=== PATIENT | male | born 1950 | race Caucasian/White ===

== ENCOUNTER 2021-06-19 06:27 | Day surgery (SDC) | payer MEDICARE ==
[2021-06-15 11:29] VITALS: BMI 26.4
[2021-06-19] MEDS ORDERED: LACTATED RINGERS 1,000 ML IV SCH (06:33)
[2021-06-19] MEDS ORDERED: SODIUM CHLORIDE 0.9% 1,000 ML IV SCH (06:33)
[2021-06-19 07:26] LABS: Glucose,Whole Blood 79 mg/dL (75-99)
[2021-06-19 07:38] VITALS: RESP 16; TEMP 98.3
[2021-06-19] MEDS ORDERED: PROPOFOL 10 MG/ML 20 ML VIAL IV ONE (07:40)
[2021-06-19] MEDS ORDERED: LIDOCAINE 1% INJ 10MG/ML (20 ML MDV) ONE (07:40)
--- NOTE | 2021-06-19 08:28 | P.HPCAR ---
History of Present Illness This is Dr. Hanley dictating an H/P on this patient The patient was interviewed and examined IMPRESSION / ASSESSMENT: Over sensing of T waves requiring adjustment of sensitivity and decay thresholds in the Bi V ICD in the office Ischemic cardio myopathy Class III congestive heart failure History of coronary artery disease status post coronary artery bypass grafting in 2002 Recent stress test did not show any evidence for ischemia Severe LV dysfunction ejection fraction 33% Moderate aortic regurgitation and moderate MR Hypertension Type 2 diabetes PLAN: Defibrillation level testing at least sensitivity Device interrogation with reprogramming to maximize battery life and biventricular pacing for heart failure HPI Patient's main complaint is that he gets short of breath and fatigued very easily with minimal walking He denies any chest discomfort no dizziness no loss of consciousness In the office, and device interrogation was noted to have T-wave oversensing and therefore sensitivity and decay parameters for reprogrammed He was brought in for DFT level testing ROS: No fever chills or rigors, no cough, phlegm or expectoration, no nausea, vomiting or diarrhea, no hematuria, dysuria, no musculoskeletal complaints, no strokes or seizures, no skin lesions. Patient denies any orthopnea or PND or chest discomfort EXAMINATION: Temperature 98.3F, pulse 72 beats a minute, blood pressure 198/78 mmHg Breath sounds are clear no rhonchi no crackles Heart sounds S1 and S2 are soft no murmurs or gallops or rub No JVD No lower extremity edema REVIEW OF LABS, ECG & MEDICAL DATA Glucose 79 Had a detailed discussion the patient and his daughter regarding the procedure and the expectations Physical Exam Vitals: Vital Signs Temp Pulse Resp BP Pulse Ox 06/19/21 07:21 98.3 F 72 16 198/78 98 Intake and Output 06/18/21 06/19/21 06/19/21 22:59 06:59 14:59 Intake Total 150 Balance 150 Intake: IV 150 Other: Weight 61 kg 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, hx of gout History of Any Multi-Drug Resistant Organisms: None Reported Past Surgical History: AICD, Appendectomy, Coronary Bypass/CABG, Tonsillectomy Additional Past Surgical History / Comment(s): CABG X4, [facility] AICD, eriberto cataracts Past Anesthesia/Blood Transfusion Reactions: No Reported Reaction Type of Cardiac Device: AICD Device Placement Date:: 09/18/19 Smoking Status: Never smoker Physical Examination Vital Signs Temp Pulse Resp BP Pulse Ox 06/19/21 07:21 98.3 F 72 16 198/78 98 Intake and Output 06/18/21 06/19/21 06/19/21 22:59 06:59 14:59 Intake Total 150 Balance 150 Intake: IV 150 Other: Weight 61 kg Results Current Medications Generic Name Dose Route Start Last Admin Trade Name Alisha PRN Reason Stop Dose Admin Sodium Chloride 1,000 mls @ 50 mls/hr 06/19/21 06:33 06/19/21 07:25 Saline 0.9% IV 07/19/21 06:34 150 mls .Q20H MATT Administration Lactated Ringer's 1,000 mls @ 20 mls/hr 06/19/21 06:33 Lactated Ringers IV 07/19/21 06:34 .Q24H MATT Intake and Output 06/18/21 06/19/21 06/19/21 22:59 06:59 14:59 Intake Total 150 Balance 150 Intake: IV 150 Other: Weight 61 kg Patient Weight 06/20/21 06:59 Weight 61 kg
--- NOTE | 2021-06-19 08:41 | P.EPPROC ---
- EP Procedure Note Electrophysiology Procedure Note: Diagnosis Ischemic cardio myopathy with a biventricular ICD implant in [place] T-wave oversensing noted in the office Sensitivity and delayed EKG parameters was reprogrammed Patient was brought in for defibrillation level testing Procedures Cinefluoroscopy of the leads Fluoroscopy of the leads was performed. No fractures or breaks noted Atrial lead screwed in the right atrial appendage RV lead in the RV septum, low LV lead in the posterior lateral vein the LV poles in the ANA M view appear to be on the lateral wall in excellent position Device interrogation Quadrant [employer] MP model #3369-40 Q, FRONT END DRUPAL DEVELOPER-D, serial number [id number] Implanted in [place], Current battery longevity around to half years based on multiple site pacing from LV 1 and LV 4 Atrial pacing threshold 0.5 V at 0.5 ms P waves 2.6 mV, pacing impedance 340 ohms RV pacing threshold 1.25 V at 0.5 ms, R waves 12 mV LV pacing threshold from D4 is elevated at greater than 3 V However the pacing threshold from C1 to RV coil is 0.5 V at 0.5 ms with a pacing impedance of 660 ohms High-voltage impedance 50 ohms, RV to can DFT testing performed Ventricular fibrillation induced, appropriately detected at least sensitivity and successfully internally defibrillated with a 10 J shock Charge time excellent, shocking impedance within normal range The device was reprogrammed MADIT RIT programming 3 zones of therapy were programmed with appropriate detections, antitachycardia pacing cardioversion and defibrillation First cardioversion in the VT 1 zone at 10 J Sensitivity programmed at nominal settings Delayed EKG parameters unchanged LV offset programmed to -40 ms Biventricular pacing with LV 1-RV coil only This increased the battery longevity to 4.3 years Plan Follow-up Dr. Michael and the device clinic as previously scheduled The changes made and the testing results were discussed with the patient's carmelita george
[2021-06-19 16:41] VITALS: BP 155/67; PULSE 76
== END 2021-06-19 09:38 | disposition home or self-care (01) ==
LOC: CATHEP 06:27
PROVIDERS: ATTEND Internal Medicine Clinical Cardiac Electrophysiology
DX: Z45.02 Encounter for adjustment and management of automatic implantable cardiac defibrillator (principal); I25.5 Ischemic cardiomyopathy; I25.10 Atherosclerotic heart disease of native coronary artery without angina pectoris; I12.9 Hypertensive chronic kidney disease with stage 1 through stage 4 chronic kidney disease, or unspecified chronic kidney disease; E11.22 Type 2 diabetes mellitus with diabetic chronic kidney disease; N18.9 Chronic kidney disease, unspecified; E78.2 Mixed hyperlipidemia; Z95.1 Presence of aortocoronary bypass graft; Z82.49 Family history of ischemic heart disease and other diseases of the circulatory system; Z88.8 Allergy status to other drugs, medicaments and biological substances; Z90.89 Acquired absence of other organs; Z87.11 Personal history of peptic ulcer disease; Z87.891 Personal history of nicotine dependence; Z79.02 Long term (current) use of antithrombotics/antiplatelets; Z79.899 Other long term (current) drug therapy; Z79.84 Long term (current) use of oral hypoglycemic drugs; Z79.82 Long term (current) use of aspirin
CPT/HCPCS: 93642; J2001; J2704

== ENCOUNTER 2021-09-04 10:54 | Inpatient (IN) | payer MEDICARE ==
[2021-09-04] MEDS ORDERED: FUROSEMIDE 10 MG/ML 4 ML VIAL IV STA (10:55)
[2021-09-04] MEDS ORDERED: NITROGLYCERIN OINT 1 INCH/GM PACKET TOPICAL STA (11:00)
--- NOTE | 2021-09-04 11:00 | ED ---
General Adult HPI - General Stated complaint: CHF Time Seen by Provider: 09/04/21 10:54 Source: patient, RN notes reviewed, old records reviewed - History of Present Illness Initial comments: This is a 70-year-old male with past medical history significant for congestive heart failure. Patient states he started having difficulty breathing last night and by this morning it was severe so they called EMS. In route the patient had more difficulty recently was put on BiPAP. Patient denies any fever chills. Patient denies any chest pain or palpitations. Patient denies abdominal pain patient denies nausea vomiting diarrhea. Patient states he has COVID. - Related Data Home Medications Medication Instructions Recorded Confirmed Allopurinol [Zyloprim] 100 mg PO DAILY 06/15/21 09/04/21 Aspirin [Adult Low Dose Aspirin EC] 81 mg PO DAILY 06/15/21 09/04/21 Carvedilol [Coreg] 12.5 mg PO BID 06/15/21 09/04/21 Clopidogrel [Plavix] 75 mg PO DAILY 06/15/21 09/04/21 Ferrous Sulfate [Iron] 325 mg PO MOTUWETH 06/15/21 09/04/21 Furosemide [Lasix] 20 mg PO DAILY 06/15/21 09/04/21 Losartan Potassium 100 mg PO DAILY 06/15/21 09/04/21 Multivit-Min/FA/Lycopen/Lutein 1 tab PO DAILY 06/15/21 09/04/21 [Centrum Silver Men Tablet] Omeprazole [PriLOSEC] 20 mg PO BID 06/15/21 09/04/21 Simvastatin 80 mg PO DAILY 06/15/21 09/04/21 Sucralfate [Carafate] 1 gm PO BID 06/15/21 09/04/21 sitaGLIPtin PHOS/metFORMIN HCL 1 tab PO BID 06/15/21 09/04/21 [Janumet 50-1,000 mg Tablet] Allergies Allergy/AdvReac Type Severity Reaction Status Date / Time heparin Allergy Unknown Verified 09/04/21 11:55 Review of Systems ROS Statement: Those systems with pertinent positive or pertinent negative responses have been documented in the HPI. ROS Other: All systems not noted in ROS Statement are negative. 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 Patient is nontoxic and well- hydrated and is in moderate distress. ENT: Neck is soft and supple. No significant lymphadenopathy is noted. Oropharynx is clear. Moist mucous membranes. Neck has full range of motion without eliciting any pain. EYES: The sclera were anicteric and conjunctiva were pink and moist. Extraocular movements were intact and pupils were equal round and reactive to light. Eyelids were unremarkable. PULMONARY: Patient has crackles bilaterally CARDIOVASCULAR: There is a regular rate and rhythm without any murmurs gallops or rubs. ABDOMEN: Soft and nontender with normal bowel sounds. SKIN: Skin is clear with no lesions or rashes and otherwise unremarkable. NEUROLOGIC: Patient is alert and oriented x3. Cranial nerves II through XII are grossly intact. Motor and sensory are also intact. Normal speech, volume and content. Symmetrical smile. MUSCULOSKELETAL: Normal extremities with adequate strength and full range of motion. No lower extremity swelling or edema. No calf tenderness. LYMPHATICS: No significant lymphadenopathy is noted PSYCHIATRIC: Normal psychiatric evaluation. Course Vital Signs 09/04/21 09/04/21 10:56 11:18 Pulse Rate 102 H 107 H Respiratory 33 H 28 H Rate Blood Pressure 165/88 127/86 O2 Sat by Pulse 100 97 Oximetry Medical Decision Making - Medical Decision Making EKG shows a paced rhythm at 102 bpm NC interval is 118 QRS is 182 QT intervals 434 QTC is 565. Chest x-ray shows pulmonary edema I gave the patient Lasix and nitroglycerin. Patient started doing considerably better when she put him on her BiPAP. Patient's potassium was elevated so I gave Some chloride, D50, insulin, sodium bicarb. Patient's troponin was elevated. BNP was elevated 22,600. I spoke with Dr. Bowen agreed to admit the patient admitted the patient I wrote admitting orders I continued Lasix Nitropaste was as an inpatient and I consult cardiology. - Lab Data Result diagrams: 09/04/21 11:20 09/04/21 11:20 Lab Results 09/04/21 09/04/21 09/04/21 Range/Units 11:20 11:20 11:20 WBC 11.2 H (3.8-10.6) k/uL RBC 3.03 L (4.30-5.90) m/uL Hgb 10.9 L (13.0-17.5) gm/dL Hct 35.4 L (39.0-53.0) % MCV 116.8 H (80.0-100.0) fL MCH 36.0 H (25.0-35.0) pg MCHC 30.8 L (31.0-37.0) g/dL RDW 14.7 (11.5-15.5) % Plt Count 347 (150-450) k/uL MPV 8.8 Macrocytosis Marked A PT 9.9 (9.0-12.0) sec INR 0.9 (<1.2) APTT 19.8 L (22.0-30.0) sec Sodium 140 (137-145) mmol/L Potassium 7.5 H* (3.5-5.1) mmol/L Chloride 116 H (98-107) mmol/L Carbon Dioxide 11 L (22-30) mmol/L Anion Gap 13 mmol/L BUN 60 H (9-20) mg/dL Creatinine 2.06 H (0.66-1.25) mg/dL Est GFR (CKD-EPI)AfAm 36 (>60 ml/min/1.73 sqM) Est GFR (CKD-EPI)NonAf 31 (>60 ml/min/1.73 sqM) Glucose 416 H (74-99) mg/dL Plasma Lactic Acid Srinivasa (0.7-2.0) mmol/L Calcium 9.5 (8.4-10.2) mg/dL Magnesium 1.5 L (1.6-2.3) mg/dL Total Bilirubin 0.6 (0.2-1.3) mg/dL AST 26 (17-59) U/L ALT 15 (4-49) U/L Alkaline Phosphatase 73 (38-126) U/L Troponin I (0.000-0.034) ng/mL NT-Pro-B Natriuret Pep pg/mL Total Protein 6.3 (6.3-8.2) g/dL Albumin 3.9 (3.5-5.0) g/dL 09/04/21 09/04/21 09/04/21 Range/Units 11:20 11:20 11:20 WBC (3.8-10.6) k/uL RBC (4.30-5.90) m/uL Hgb (13.0-17.5) gm/dL Hct (39.0-53.0) % MCV (80.0-100.0) fL MCH (25.0-35.0) pg MCHC (31.0-37.0) g/dL RDW (11.5-15.5) % Plt Count (150-450) k/uL MPV Macrocytosis PT (9.0-12.0) sec INR (<1.2) APTT (22.0-30.0) sec Sodium (137-145) mmol/L Potassium (3.5-5.1) mmol/L Chloride (98-107) mmol/L Carbon Dioxide (22-30) mmol/L Anion Gap mmol/L BUN (9-20) mg/dL Creatinine (0.66-1.25) mg/dL Est GFR (CKD-EPI)AfAm (>60 ml/min/1.73 sqM) Est GFR (CKD-EPI)NonAf (>60 ml/min/1.73 sqM) Glucose (74-99) mg/dL Plasma Lactic Acid Srinivasa 3.4 H* (0.7-2.0) mmol/L Calcium (8.4-10.2) mg/dL Magnesium (1.6-2.3) mg/dL Total Bilirubin (0.2-1.3) mg/dL AST (17-59) U/L ALT (4-49) U/L Alkaline Phosphatase (38-126) U/L Troponin I 0.414 H* (0.000-0.034) ng/mL NT-Pro-B Natriuret Pep 36705 pg/mL Total Protein (6.3-8.2) g/dL Albumin (3.5-5.0) g/dL Critical Care Time Critical Care Time: Yes Total Critical Care Time: 34 Disposition Clinical Impression: Congestive heart failure, Elevated troponin, Hyperkalemia Disposition: ADMITTED IP TO THIS HOSP Referrals: None,Stated [Primary Care Provider] - 1-2 days Time of Disposition: 12:35
[2021-09-04 11:40] LABS: Basophils # (A) 0.1 k/uL (0-0.2); Basophils % (A) 1 %; Eosinophils # (A) 0.1 k/uL (0-0.7); Eosinophils % (A) 1 %; HCT 35.4 % (39.0-53.0); HGB 10.9 gm/dL (13.0-17.5); Lymphocytes # (A) 1.5 k/uL (1.0-4.8); Lymphocytes % (A) 13 %; MCHC 30.8 g/dL (31.0-37.0); MCV 116.8 fL (80.0-100.0); Macrocytosis Marked; Mean Platelet Volume 8.8; Monocytes # (A) 0.6 k/uL (0-1.0); Monocytes % (A) 5 %; Neutrophils % (A) 80 %; Platelet Count 347 k/uL (150-450); RBC 3.03 m/uL (4.30-5.90); RDW 14.7 % (11.5-15.5); WBC 11.2 k/uL (3.8-10.6)
[2021-09-04 11:49] LABS: Albumin 3.9 g/dL (3.5-5.0); Calcium 9.5 mg/dL (8.4-10.2); Magnesium 1.5 mg/dL (1.6-2.3); Total Bilirubin 0.6 mg/dL (0.2-1.3); Total Protein 6.3 g/dL (6.3-8.2)
[2021-09-04 11:58] LABS: Potassium 7.5 mmol/L (3.5-5.1)
--- NOTE | 2021-09-04 12:09 | XR ---
E EXAMINATION TYPE: XR chest 1V DATE OF EXAM: 09/04/2021 COMPARISON: NONE HISTORY: Difficulty breathing FINDINGS: There are bilateral pleural effusions with cardiomegaly and bibasilar infiltrate. There is a diffuse interstitial pattern. Cardiomegaly with postoperative change and cardiac device. Arthropathy of the shoulders with diffuse osteopenia. IMPRESSION: 1. Diffuse airspace disease with bilateral effusions correlate for pulmonary edema otherwise consider diffuse pneumonia.
[2021-09-04 12:19] LABS: INR 0.9 (<1.2); Prothrombin Time 9.9 sec (9.0-12.0)
[2021-09-04 12:25] LABS: Partial Thromboplastin Time 19.8 sec (22.0-30.0)
[2021-09-04] MEDS ORDERED: CALCIUM CHLORIDE 100 MG/ML 10 ML SYRINGE IVP STA (12:29)
[2021-09-04] MEDS ORDERED: SODIUM BICARB 8.4% 50 ML SYR (1 MEQ/ML) IV STA ×2 (12:30→20:44)
[2021-09-04] MEDS ORDERED: INSULIN REGULAR 100 UNIT/ML VIAL (IV) IV ONE (12:32)
[2021-09-04] MEDS ORDERED: DEXTROSE 50% SYRINGE 50 ML IVP STA (12:32)
[2021-09-04] MEDS ORDERED: SODIUM POLYSTYRENE SULFONATE 15 GM/60 ML BOTTLE PO STA (14:07)
[2021-09-04] MEDS: NITROGLYCERIN OINT 1 INCH/GM PACKET TOPICAL SCH ×2 (18:33→20:56)
[2021-09-04] MEDS: FUROSEMIDE 10 MG/ML 4 ML VIAL IV SCH ×2 (18:33→20:56)
[2021-09-04] MEDS ORDERED: CALCIUM GLUCONATE 1 GM in SODIUM CHLORIDE 0.9% 100 ML IVPB ONE (20:52)
[2021-09-04] MEDS: PANTOPRAZOLE 40 MG TABLET PO SCH (20:56)
[2021-09-04] MEDS: ATORVASTATIN 80 MG TAB PO SCH (20:56)
[2021-09-04] MEDS: ENOXAPARIN 60 MG/0.6 ML SYRINGE SQ SCH (21:06)
[2021-09-04 21:15] LABS: Glucose,Whole Blood 160 mg/dL (75-99)
[2021-09-04] MEDS: INSULIN ASPART (NovoLOG) 100 UNIT/ML VIAL SQ SCH (21:24)
[2021-09-04 22:44] LABS: Potassium 5.5 mmol/L (3.5-5.1)
[2021-09-04] MEDS: SODIUM CHLORIDE 0.45% 1,000 ML with SODIUM BICARB (1 MEQ/ML) 150 ML IV SCH ×2 (23:09)
--- NOTE | 2021-09-05 00:12 | US ---
EXAMINATION TYPE: US kidneys/renal and bladder DATE OF EXAM: 09/04/2021 COMPARISON: NONE CLINICAL HISTORY: assess kidney. Labs abnormal per IT INVESTMENT/PORTFOLIO MANAGER. Born with right kidney only per RN summary. EXAM MEASUREMENTS: Right Kidney: 14.9 x 4.7 x 5.7 cm Left Kidney: Not seen. Right Kidney: Appears enlarged. Possible double collecting system appearance. Hyperechoic focus seen medially: 0.4 x 0.6 x 0.2 cm. Septated anechoic area seen laterally: 2.3 x 2.3 x 1.6 cm. Multiple ti ny anechoic areas seen. Bladder: Appears anechoic. Bilateral Jets seen: No. -Incidental finding: Multiple hyperechoic foci with posterior shadowing seen within the gallbladder. -Fluid seen in the LLQ: 2.6 x 1.3 x 2.5 cm. IMPRESSION: Numerous gallstones. There are right renal cortical cysts. No hydronephrosis. Right kidney is enlarged. Nonobstructing sma ll renal calculus. Left kidney not seen. By history patient absent left kidney. Right kidney could be enlarged related to compensatory hypertrophy.
[2021-09-05 04:22] LABS: Calcium 9.9 mg/dL (8.4-10.2)
[2021-09-05 06:16] LABS: Glucose,Whole Blood 100 mg/dL (75-99)
[2021-09-05] MEDS: INSULIN ASPART (NovoLOG) 100 UNIT/ML VIAL SQ SCH ×4 (06:16→20:49)
[2021-09-05] MEDS: FUROSEMIDE 10 MG/ML 4 ML VIAL IV SCH ×2 (09:41→17:07)
[2021-09-05] MEDS: ASPIRIN 81 MG PO SCH (09:41)
[2021-09-05] MEDS: carvediloL 12.5 MG TAB PO SCH ×2 (09:41→17:07)
[2021-09-05] MEDS: PANTOPRAZOLE 40 MG TABLET PO SCH ×2 (09:41→20:49)
[2021-09-05] MEDS: allopurinoL 100 MG TAB PO SCH (09:41)
[2021-09-05] MEDS: CLOPIDOGREL 75 MG TAB PO SCH (09:41)
[2021-09-05] MEDS: NITROGLYCERIN OINT 1 INCH/GM PACKET TOPICAL SCH ×4 (09:47→21:00)
[2021-09-05] MEDS ORDERED: FUROSEMIDE 10 MG/ML 4 ML VIAL IV STA (11:17)
--- NOTE | 2021-09-05 11:43 | P.CRDCN ---
History of Present Illness History of present illness: HISTORY OF PRESENTING ILLNESS This is a pleasant 70-year-old male past medical history significant for type 2 diabetes, hypertension, dyslipidemia, coronary artery disease status post four-vessel CABG 2002 (LEWIS-LAD, VG-OM1, VG-OM2, VG-PDA), ischemic cardiomyopathy s/p ICD implantation 2019 at [facility], chronic kidney disease. He follows in the office with Dr. iMchael. We have been asked to see in consultation for acute pulmonary edema and elevated troponin. Patient presents to the emergency department with worsening shortness of breath. He states he has been having symptoms of shortness of breath for a few months now. However, over the past couple days he been having worsening shortness of breath and dyspnea on exertion. Yesterday he states he had an episode of chest discomfort, describes it as a pressure. It was non-radiating, non-exertional. He called his sister, she noted him being diaphoretic. He also was very short of breath. He decided to present to the emergency department for further evaluation. He also endorses about 2lb weight gain. He has symptoms of orthopnea. He states he has been having difficulty sleeping due to shortness of breath. He denies nausea, v omiting, abdominal pain, fever or chills. He is a non-smoker. On admission, patient was hyperkalemic K 7.9, WBC 11.2, Hgb 10.9, Plt 347, BUN 60, sCr 2.06, Lactic 3.4. Patient was started on IV Lasix, SQ lovenox, and Sodium bicarb drip. DIAGNOSTICS EKG reveals V paced rhythm, right bundle morphology Telemetry tracings indicate V paced rhythm Chest xray diffuse airspace disease with bilateral effusions correlate for pulmonary edema. Laboratory reviewed, troponin 0.4-->3.4-->9.9, proBNP 22,600, sodium 140, potassium 5.0, BUN 65, serum creatinine 2.1, COVID-19 PCR negative. Most recent echocardiogram in the office 03/30/2021 revealed EF of 3035 percent, grade 2 diastolic dysfunction, mild left ventricular hypertrophy, moderate mitral regurgitation, [id number] tricuspid regurgitation, moderate increased pulmonary artery systolic pressure 55mmHg, moderate pulmonic regurgitation Lexiscan in the office 03/28/21- No evidence of significant stress induced ischemia. Abnormal myocardial perfusion imaging with predominantly fixed ant eroapical and anterolateral defect with segmental wall motion abnormality consistent with prior ND. Current home cardiac medications include simvastatin 80mg daily, losartan 100mg daily, Lasix 20mg daily, Plavix 75mg daily, aspirin 81mg daily REVIEW OF SYSTEMS At the time of my exam: CONSTITUTIONAL: Denies fever or chills. +diaphoresis CARDIOVASCULAR: + chest pain, +shortness of breath, +orthopnea, Denies PND or palpitations. RESPIRATORY: Denies cough. GASTROINTESTINAL: Denies abdominal pain, diarrhea, constipation, nausea or vomiting. MUSCULOSKELETAL: Denies myalgias. NEUROLOGIC: Denies numbness, tingling, headacbe or weakness. ENDOCRINE: Denies fatigue, weight change, polydipsia or polyurina. GENITOURINARY: Denies burning, hematuria or urgency with micturation. HEMATOLOGIC: Denies history of anemia or bleeding. PHYSICAL EXAMINATION Blood pressure 134/76, heart rate 86, afebrile, maintaining saturations 99% on 3 L nasal cannula CONSTITUTIONAL: No apparent distress. HEENT: Head is normocephalic. Pupils are equal, round. Sclerae anicteric. Mucous membranes of the mouth are moist. Mild JVD. No carotid bruit. CHEST EXAMINATION: Lungs with bibasilar crackles to auscultation. No chest wall tenderness is noted on palpation or with deep breathing. HEART EXAMINATION: Regular rate and rhythm. S1, S2 heard. Systolic murmur at apex ABDOMEN: Soft, nontender. Positive bowel sounds. EXTREMITIES: 2+ peripheral pulses, no lower extremity edema and no calf tenderness. NEUROLOGIC EXAMINATION: Patient is awake, alert and oriented x3. ASSESSMENT Acute systolic heart failure NSTEMI Hyperkalemia Lactic acidosis Acute on Chronic kidney disease Type 2 diabetes Hypertension Dyslipidemia Coronary artery disease status post four-vessel CABG 2002 (LEWIS-LAD, VG-OM1, VG- OM2, VG-PDA) Ischemic cardiomyopathy s/p ICD implantation 2018 PLAN We will obtain an 2D echocardiogram Continue IV Lasix 40mg Q8hr Continue aspirin, plavix, statin, carvedilol Patient states he went to a previous hospital and was told he was allergic to heparin (unknown details). We will continue SQ Lovenox. We will monitor patient's Platelet count No plans for cardiac catheterization today. Nephrology consulted Monitor I/Os, daily weights Monitor renal function and electrolytes Further recommendations based on clinical course Nurse Practitioner note has been reviewed, I agree with a documented findings and plan of care. Patient was seen and examined. 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, hx of gout History of Any Multi-Drug Resistant Organisms: None Reported Past Surgical History: AICD, Appendectomy, Coronary Bypass/CABG, Tonsillectomy Additional Past Surgical History / Comment(s): CABG X4, [facility] AICD, eriberto cataracts Past Anesthesia/Blood Transfusion Reactions: No Reported Reaction Type of Cardiac Device: AICD Device Placement Date:: 09/18/19 Smoking Status: Never smoker - Past Family History Mother Family Medical History: Cancer, Hypertension Additional Family Medical History / Comment(s): breast CA Father Family Medical History: Cancer Additional Family Medical History / Comment(s): TB. lung CA Medications and Allergies Home Medications Medication Instructions Recorded Confirmed Type Allopurinol [Zyloprim] 100 mg PO DAILY 06/15/21 09/04/21 History Aspirin [Adult Low Dose Aspirin EC] 81 mg PO DAILY 06/15/21 09/04/21 History Carvedilol [Coreg] 12.5 mg PO BID 06/15/21 09/04/21 History Clopidogrel [Plavix] 75 mg PO DAILY 06/15/21 09/04/21 History Ferrous Sulfate [Iron] 325 mg PO MOTUWETH 06/15/21 09/04/21 History Furosemide [Lasix] 20 mg PO DAILY 06/15/21 09/04/21 History Losartan Potassium 100 mg PO DAILY 06/15/21 09/04/21 History Multivit-Min/FA/Lycopen/Lutein 1 tab PO DAILY 06/15/21 09/04/21 History [Centrum Silver Men Tablet] Omeprazole [PriLOSEC] 20 mg PO BID 06/15/21 09/04/21 History Simvastatin 80 mg PO DAILY 06/15/21 09/04/21 History Sucralfate [Carafate] 1 gm PO BID 06/15/21 09/04/21 History sitaGLIPtin PHOS/metFORMIN HCL 1 tab PO BID 06/15/21 09/04/21 History [Janumet 50-1,000 mg Tablet] Allergies Allergy/AdvReac Type Severity Reaction Status Date / Time heparin Allergy Unknown Verified 09/04/21 11:55 Physical Exam Vitals: Vital Signs Temp Pulse Resp BP Pulse Ox 09/04/21 12:55 97.9 F 93 19 112/60 100 09/04/21 11:18 107 H 28 H 127/86 97 09/04/21 10:56 102 H 33 H 165/88 100 Intake and Output 09/03/21 09/04/21 09/04/21 22:59 06:59 14:59 Other: Weight 65.771 kg Results 09/04/21 11:20 09/05/21 03:09 Cardiac Enzymes 09/04/21 09/04/21 Range/Units 11:20 11:20 AST 26 (17-59) U/L Troponin I 0.414 H* (0.000-0.034) ng/mL Coagulation 09/04/21 Range/Units 11:20 PT 9.9 (9.0-12.0) sec APTT 19.8 L (22.0-30.0) sec CBC 09/04/21 Range/Units 11:20 WBC 11.2 H (3.8-10.6) k/uL RBC 3.03 L (4.30-5.90) m/uL Hgb 10.9 L (13.0-17.5) gm/dL Hct 35.4 L (39.0-53.0) % Plt Count 347 (150-450) k/uL Comprehensive Metabolic Panel 09/04/21 09/04/21 Range/Units 11:20 12:45 Sodium 140 (137-145) mmol/L Potassium 7.5 H* 7.9 H* (3.5-5.1) mmol/L Chloride 116 H (98-107) mmol/L Carbon Dioxide 11 L (22-30) mmol/L BUN 60 H (9-20) mg/dL Creatinine 2.06 H (0.66-1.25) mg/dL Glucose 416 H (74-99) mg/dL Calcium 9.5 (8.4-10.2) mg/dL AST 26 (17-59) U/L ALT 15 (4-49) U/L Alkaline Phosphatase 73 (38-126) U/L Total Protein 6.3 (6.3-8.2) g/dL Albumin 3.9 (3.5-5.0) g/dL Current Medications Generic Name Dose Route Start Last Admin Trade Name Freq PRN Reason Stop Dose Admin Furosemide 40 mg 09/04/21 19:00 Furosemide 10 Mg/Ml 4 Ml Vial IV Q8H MATT Nitroglycerin 1 inch 09/04/21 18:00 Nitroglycerin Oint 1 Inch/Gm Packet TOPICAL QID MATT Intake and Output 09/03/21 09/04/21 09/04/21 22:59 06:59 14:59 Other: Weight 65.771 kg Patient Weight 09/05/21 06:59 Weight 65.771 kg 09/04/21 11:20 09/04/21 12:45
[2021-09-05 13:08] LABS: Glucose,Whole Blood 165 mg/dL (75-99)
--- NOTE | 2021-09-05 14:11 | P.HPIM ---
History of Present Illness H&P Date: 09/04/21 Chief Complaint: Short of breath This is a pleasant 70-year-old patient was chronic stable medical conditions include diabetes, peptic ulcer disease, unilateral right kidney, gout, CAD with a bypass, AICD. Has known underlying ischemic cardiomyopathy. Patient presented increasing shortness of breath through the previous night. Some chest pressure. Slight perspiration. Minimal cough. No fever no chills. No lower extremity swelling. Presents to the ER. Review of systems: GEN.: Tired EYES: None HEENT: None NECK: None RESPIRATORY: As above CARDIOVASCULAR: As above GASTROINTESTINAL: None GENITOURINARY: None MUSCULOSKELETAL: None LYMPHATICS: None HEMATOLOGICAL: None PSYCHIATRY: None NEUROLOGICAL: None Past medical history to include: Diabetes mellitus type 2, COPD, AICD, peptic ulcer disease, unilateral right kidney, gout, CAD with a bypass Family history: Breast cancer, hypertension Social history: No history of smoking or alcohol. Physical examination: VITAL SIGNS: 97.9, 102, 33, 165/88, 100% on BiPAP GENERAL: BMI 28.3, reclining in bed, short of breath. EYES: Pupils equal. Conjunctiva normal. HEENT: External appearance of nose and ears normal, oral cavity grossly normal. NECK: JVD unable to assess; masses not palpable. HEART: First and second heart sounds are normal; no edema. LUNGS: Respiratory rate increased, diminished breath sounds and crackles. ABDOMEN: Soft, nontender, liver spleen not palpable, no masses palpable. PSYCH: [Alert and oriented x3; mood and affect tired l. NEUROLOGICAL: Cranial nerves grossly intact; no facial asymmetry, power and sensation grossly intact. LYMPHATICS: No lymph nodes palpable in the axilla and neck INVESTIGATIONS, reviewed in the clinical context: WBC 11.2 hemoglobin 10.9 platelets 347 sodium 140 potassium 7.5/6.1 BUN 60 creatinine 2.06 Troponin I 0.414, 3.4, 90.9 ProBNP [id number] EKG tracing personally reviewed by me-atrial sensed ventricular paced rhythm. Chest x-ray film personally reviewed by me-pulmonary edema Previous labs: [May 2021]: BUN 53 creatinine 2.5 Assessment and plan: -Acute non-Q wave myocardial infarction Lipitor, Coreg, aspirin. Cardiology consulted -Acute on chronic congestive heart failure exacerbation IV Lasix. Currently consulted -Biventricular AICD -Chronic kidney disease stage IV from diabetic nephropathy and hypertensive nephrosclerosis Follow renal function -Severe hyperkalemia in the setting of CK D. Hold Cozaar. Sodium bicarb. Dextrose. Insulin. Kayexalate. Nephrology consult -Unilateral right kidney -Chronic gout Continue allopurinol -Acute hypoxic respiratory failure from pulmonary edema BiPAP -Acute metabolic acidosis from renal failure. Bicarbonate -CAD with a prior history of coronary bypass Coreg. Plavix. Aspirin. -Peptic ulcer disease PPI. -Diabetes mellitus type 2 on oral hypoglycemic Hold oral hypoglycemic. Follow Accu-Cheks and sliding scale insulin. Patient on BiPAP. IV Lasix. Hold Cozaar. Nitropaste. Strict I's and O's. Follow with cardiology in nephrology. Lipitor. Aspirin. PPI. Sodium bicarbonate. Care discussed with the patient. Prognosis guarded. 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, hx of gout History of Any Multi-Drug Resistant Organisms: None Reported Past Surgical History: AICD, Appendectomy, Coronary Bypass/CABG, Tonsillectomy Additional Past Surgical History / Comment(s): CABG X4, [facility] AICD, eriberto cataracts Past Anesthesia/Blood Transfusion Reactions: No Reported Reaction Type of Cardiac Device: AICD Device Placement Date:: 09/18/19 Smoking Status: Never smoker - Past Family History Mother Family Medical History: Cancer, Hypertension Additional Family Medical History / Comment(s): breast CA Father Family Medical History: Cancer Additional Family Medical History / Comment(s): TB. lung CA Medications and Allergies Home Medications Medication Instructions Recorded Confirmed Type Allopurinol [Zyloprim] 100 mg PO DAILY 06/15/21 09/04/21 History Aspirin [Adult Low Dose Aspirin EC] 81 mg PO DAILY 06/15/21 09/04/21 History Carvedilol [Coreg] 12.5 mg PO BID 06/15/21 09/04/21 History Clopidogrel [Plavix] 75 mg PO DAILY 06/15/21 09/04/21 History Ferrous Sulfate [Iron] 325 mg PO MOTUWETH 06/15/21 09/04/21 History Furosemide [Lasix] 20 mg PO DAILY 06/15/21 09/04/21 History Losartan Potassium 100 mg PO DAILY 06/15/21 09/04/21 History Multivit-Min/FA/Lycopen/Lutein 1 tab PO DAILY 06/15/21 09/04/21 History [Centrum Silver Men Tablet] Omeprazole [PriLOSEC] 20 mg PO BID 06/15/21 09/04/21 History Simvastatin 80 mg PO DAILY 06/15/21 09/04/21 History Sucralfate [Carafate] 1 gm PO BID 06/15/21 09/04/21 History sitaGLIPtin PHOS/metFORMIN HCL 1 tab PO BID 06/15/21 09/04/21 History [Janumet 50-1,000 mg Tablet] Allergies Allergy/AdvReac Type Severity Reaction Status Date / Time heparin Allergy Unknown Verified 09/04/21 11:55 Physical Exam Vitals: Vital Signs Temp Pulse Pulse Resp BP BP Pulse Ox 09/04/21 16:00 97.7 F 75 23 103/58 100 09/04/21 12:55 97.9 F 93 19 112/60 100 09/04/21 11:18 107 H 28 H 127/86 97 09/04/21 10:56 102 H 33 H 165/88 100 Intake and Output 09/04/21 09/04/21 09/04/21 06:59 14:59 22:59 Other: Weight 65.771 kg Results CBC & Chem 7: 09/04/21 11:20 09/05/21 03:09 Labs: Abnormal Lab Results - Last 24 Hours (Table) 09/04/21 09/04/21 09/04/21 Range/Units 11:20 11:20 11:20 WBC 11.2 H (3.8-10.6) k/uL RBC 3.03 L (4.30-5.90) m/uL Hgb 10.9 L (13.0-17.5) gm/dL Hct 35.4 L (39.0-53.0) % MCV 116.8 H (80.0-100.0) fL MCH 36.0 H (25.0-35.0) pg MCHC 30.8 L (31.0-37.0) g/dL Neutrophils # 9.0 H (1.3-7.7) k/uL Macrocytosis Marked A APTT 19.8 L (22.0-30.0) sec Potassium 7.5 H* (3.5-5.1) mmol/L Chloride 116 H (98-107) mmol/L Carbon Dioxide 11 L (22-30) mmol/L BUN 60 H (9-20) mg/dL Creatinine 2.06 H (0.66-1.25) mg/dL Glucose 416 H (74-99) mg/dL Plasma Lactic Acid Srinivasa (0.7-2.0) mmol/L Magnesium 1.5 L (1.6-2.3) mg/dL Troponin I (0.000-0.034) ng/mL 09/04/21 09/04/21 09/04/21 Range/Units 11:20 11:20 12:45 WBC (3.8-10.6) k/uL RBC (4.30-5.90) m/uL Hgb (13.0-17.5) gm/dL Hct (39.0-53.0) % MCV (80.0-100.0) fL MCH (25.0-35.0) pg MCHC (31.0-37.0) g/dL Neutrophils # (1.3-7.7) k/uL Macrocytosis APTT (22.0-30.0) sec Potassium 7.9 H* (3.5-5.1) mmol/L Chloride (98-107) mmol/L Carbon Dioxide (22-30) mmol/L BUN (9-20) mg/dL Creatinine (0.66-1.25) mg/dL Glucose (74-99) mg/dL Plasma Lactic Acid Srinivasa 3.4 H* (0.7-2.0) mmol/L Magnesium (1.6-2.3) mg/dL Troponin I 0.414 H* (0.000-0.034) ng/mL 09/04/21 09/04/21 Range/Units 15:04 16:04 WBC (3.8-10.6) k/uL RBC (4.30-5.90) m/uL Hgb (13.0-17.5) gm/dL Hct (39.0-53.0) % MCV (80.0-100.0) fL MCH (25.0-35.0) pg MCHC (31.0-37.0) g/dL Neutrophils # (1.3-7.7) k/uL Macrocytosis APTT (22.0-30.0) sec Potassium (3.5-5.1) mmol/L Chloride (98-107) mmol/L Carbon Dioxide (22-30) mmol/L BUN (9-20) mg/dL Creatinine (0.66-1.25) mg/dL Glucose (74-99) mg/dL Plasma Lactic Acid Srinivasa 3.6 H* (0.7-2.0) mmol/L Magnesium (1.6-2.3) mg/dL Troponin I 3.480 H* (0.000-0.034) ng/mL
--- NOTE | 2021-09-05 14:25 | P.PN ---
Progress Note - Text Progress Note Date: 09/05/21 Chief Complaint: Short of breath This is a pleasant 70-year-old patient was chronic stable medical conditions include diabetes, peptic ulcer disease, unilateral right kidney, gout, CAD with a bypass, AICD. Has known underlying ischemic cardiomyopathy. Patient presente d increasing shortness of breath through the previous night. Some chest pressure. Slight perspiration. Minimal cough. No fever no chills. No lower extremity swelling. Presents to the ER. Admitted with acute non-Q-wave ID, acute on chronic congestive heart exacerbation, acute hypoxic respiratory failure. Metabolic acidosis. Hyperkalemia. Treated with BiPAP, IV Lasix, bicarb Kayexalate. 09/05/2021: Sitting up in bed. Short of breath. On nasal cannula. Tired. No chest pain. Review of systems: Was done for constitutional, cardiovascular, GI, pulmonary. relevant finding as above Active Medications Allopurinol (Allopurinol 100 Mg Tab) 100 mg PO DAILY [facility] Last Admin: 09/05/21 09:41 Dose: 100 mg Documented by: Aspirin (Aspirin 81 Mg) 81 mg PO DAILY [facility] Last Admin: 09/05/21 09:41 Dose: 81 mg Documented by: Atorvastatin Calcium (Atorvastatin 80 Mg Tab) 80 mg PO HS [facility] Last Admin: 09/04/21 20:56 Dose: 80 mg Documented by: Carvedilol (Carvedilol 12.5 Mg Tab) 12.5 mg PO BID-W/MEALS [facility] Last Admin: 09/05/21 09:41 Dose: 12.5 mg Documented by: Clopidogrel Bisulfate (Clopidogrel 75 Mg Tab) 75 mg PO DAILY [facility] Last Admin: 09/05/21 09:41 Dose: 75 mg Documented by: Enoxaparin Sodium (Enoxaparin 60 Mg/0.6 Ml Syringe) 60 mg SQ Q24H [facility] Last Admin: 09/04/21 21:06 Dose: 60 mg Documented by: Furosemide (Furosemide 10 Mg/Ml 4 Ml Vial) 40 mg IV Q8H [facility] Last Admin: 09/05/21 09:41 Dose: 40 mg Documented by: Sodium Bicarbonate 150 ml/ (Sodium Chloride) 1,150 mls @ 50 mls/hr IV .Q23H [facility] Last Admin: 09/04/21 23:09 Dose: 100 mls/hr Documented by: Insulin Aspart (Insulin Aspart (Novolog) 100 Unit/Ml Vial) 0 unit SQ ACHS [facility]; Protocol Last Admin: 09/05/21 13:08 Dose: Not Given Documented by: Nitroglycerin (Nitroglycerin Oint 1 Inch/Gm Packet) 1 inch TOPICAL QID [facility] Last Admin: 09/05/21 12:54 Dose: Not Given Documented by: Pantoprazole Sodium (Pantoprazole 40 Mg Tablet) 40 mg PO BID [facility] Last Admin: 09/05/21 09:41 Dose: 40 mg Documented by: Past medical history to include: Diabetes mellitus type 2, COPD, AICD, peptic ulcer disease, unilateral right kidney, gout, CAD with a bypass Family history: Breast cancer, hypertension Social history: No history of smoking or alcohol. Physical examination: VITAL SIGNS: 98.7, 90, 18, 112/67, 97% on 2 L GENERAL: Sitting up in bed, nasal cannula, breathing better. EYES: Pupils equal. Conjunctiva normal. HEENT: External appearance of nose and ears normal, oral cavity grossly normal. NECK: JVD unable to assess; masses not palpable. HEART: First and second heart sounds are normal; no edema. LUNGS: Respiratory rate increased, diminished breath sounds ABDOMEN: Soft, nontender, liver spleen not palpable, no masses palpable. PSYCH: [Alert and oriented x3; mood and affect normal. INVESTIGATIONS, reviewed in the clinical context: September 05: Potassium 5 bicarb 17 BUN 65 creatinine 2.17 troponin I 8.8 Renal ultrasound: Right renal cortical cyst. No hydronephrosis. Right kidney is enlarged. Nonobstructing small renal calculus. Left kidney not seen. WBC 11.2 hemoglobin 10.9 platelets 347 sodium 140 potassium 7.5/6.1 BUN 60 creatinine 2.06 Troponin I 0.414, 3.4, 90.9 ProBNP [id number] EKG tracing personally reviewed by me-atrial sensed ventricular paced rhythm. Chest x-ray film personally reviewed by me-pulmonary edema Previous labs: [May 2021]: BUN 53 creatinine 2.5 Assessment and plan: -Acute non-Q wave myocardial infarction Lipitor, Coreg, aspirin. Plavix -Acute on chronic congestive heart failure exacerbation: Better IV Lasix. 40 mg every 8. -Biventricular AICD -Chronic kidney disease stage IV from diabetic nephropathy and hypertensive nephrosclerosis Follow renal function -Severe hyperkalemia in the setting of CK D.: Better Hold Cozaar. Sodium bicarb. Dextrose. Insulin. Kayexalate. -Unilateral right kidney -Chronic gout Continue allopurinol -Acute hypoxic respiratory failure from pulmonary edema: Better BiPAP. Now on 2 L nasal cannula -Acute metabolic acidosis from renal failure.: Slow to respond Bicarbonate drip -CAD with a prior history of coronary bypass Coreg. Plavix. Aspirin. -Peptic ulcer disease PPI. -Diabetes mellitus type 2 on oral hypoglycemic Hold oral hypoglycemic. Follow Accu-Cheks and sliding scale insulin. On bicarbonate Drip. Follow lites closely. Follow Accu-Cheks. Care was discussed with the patient. IV Lasix.
--- NOTE | 2021-09-05 15:57 | CONS ---
CONSULTATION REASON FOR CONSULT: Renal failure, hyperkalemia. HISTORY OF PRESENT ILLNESS: The patient is a 70-year-old male who was admitted to the hospital with complaints of increased weakness. He also had shortness of breath. When patient came into the hospital, he was noted to have a serum potassium of 7.5 and 7.9 mEq/L. This was treated with IV medications. Patient also received a dose of Kayexalate. The patient denies any previous history of kidney diseases. His serum creatinine was 2.0 on initial admission. I do see that his creatinine has been about 1.9-2.0 range most of 2020 and 2017 as well. Patient was maintained on losartan at home. He denied use of any nonsteroidal anti- inflammatory agents. His blood sugar was elevated at 412 when he came in and his CO2 was at 11 on initial labs yesterday. The patient was started on bicarb drip and his acidosis is improved with improvement in hyperkalemia as well. The patient has been voiding with no urine retention noted. Troponin was elevated at 9.9 and now down to 8.8. No plans on cardiac catheterization yet. The patient does have a history of CHF, ejection fraction not known at this time. PAST MEDICAL HISTORY: Significant for hypertension, cardiomyopathy, previous ejection fraction 30% to 35% according to Cardiology notes, type 2 diabetes, history of peptic ulcers and a history of solitary kidney, the patient was born with only right kidney. PAST SURGICAL HISTORY: AICD, appendicectomy, coronary artery bypass surgery, tonsillectomy, cataract surgery. SOCIAL HISTORY: Negative for smoking, drug abuse or alcohol abuse. MEDICATIONS: Medications prior to admission included zyloprim, aspirin, Coreg, Plavix, iron, Lasix, losartan, Prilosec, Carafate, simvastatin, Janumet. ALLERGIES: Include HEPARIN, it is unknown. REVIEW OF SYSTEMS: As per HPI. Other systems negative. EXAMINATION: Patient is comfortable, awake, not in any acute distress. Alert, oriented x3, mildly short of breath. Blood pressure was 112/67, heart rate 90 per minute, he is afebrile. Examination of the heart S1, S2. Examination of the lungs, decreased breath sounds at the bases with basal crackles heard. Abdomen is soft, nontender. Examination of lower extremities shows edema trace bilaterally. SLD EDUCATIONAL AIDE exam grossly intact. LAB: Show sodium 140, potassium 5.0, chloride 112, CO2 17, BUN 65, creatinine 2.1, troponin 8.8. UA is not available. COVID screen was negative. Serum acetone was ordered yesterday that was negative. ASSESSMENT: 1. Acute kidney injury, mostly prerenal. Renal function currently stable. His creatinine is not far from baseline, which has been at 1.8-2 mg/dL all the way back to 2018. 2. Severe metabolic acidosis, possibly related to metformin. The patient's blood pressure was not significantly low although slightly on the lower side with systolic 103 mm of Hg when he came in and lactic acid was not checked. The patient's serum acetone was negative as his blood sugar was elevated at 412 when he came in. Therefore, there was no underlying DKA. Currently maintained on sodium bicarb drip and acidosis has improved. 3. Hyperkalemia associated with acute kidney injury, use of ALO inhibitors and severe acidosis and increased potassium intake in diet, currently improved. 4. Non ST elevation myocardial infarction. 5. Chronic kidney disease, NKF stage 3B to 4 with baseline creatinine around 1.8-2 mg/dL. 6. 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 Right kidney is about 14.9 cm. 7. Hypervolemia. Will decrease IV fluids and diurese patient gently. PLAN: Continue with the bicarb drip, decreased rate. Add one dose of IV Lasix for hypervolemia and repeat labs in a.m. Check urinalysis. Decrease IV fluids to 50 mL an hour. Repeat Lasix x1. Check urinalysis and repeat labs in a.m. MMDAMARISL / COURTNEYN: [id number] /
--- NOTE | 2021-09-05 16:01 | ECHOF ---
Referral Reason: MEASUREMENTS -------- HEIGHT: 154.9 cm WEIGHT: 65.8 kg BP: IVSd: 1.4 cm (0.6 - 1.1) LVIDd: 6.0 cm (3.9 - 5.3) LVPWd: 1.1 cm (0.6 - 1.1) EDV(Teich): 183 ml IVSs: 1.7 cm LVIDs: 5.2 cm LVPWs: 1.5 cm %IVS Thck: 20 % ESV(Teich): 129 ml EF(Teich): 29 % %FS: 14 % SV(Teich): 54 ml RVIDd: 2.4 cm (< 3.3) Ao Diam: 3.4 cm (2.0 - 3.7) LA Diam: 3.9 cm (2.7 - 3.8) AV Cusp: 2.2 cm (1.5 - 2.6) EPSS: 2.0 cm MV E Shantanu: 1.02 m/s MV DecT: 170 ms MV Dec Sebastian: 6.0 m/s MV A Shantanu: 0.28 m/s MV E/A Ratio: 3.60 MV PHT: 49 ms MR Vmax: 3.70 m/s MR maxP.68 mmHg AV Vmax: 1.08 m/s AV maxP.63 mmHg AR Vmax: 1.70 m/s AR maxP.50 mmHg AR PHT: 225 ms AR Dec Time: 776 ms AR Dec Sebastian: 2.2 m/s TR Vmax: 3.89 m/s TR maxP.61 mmHg RAP: 5.00 mmHg RVSP: 65.61 mmHg MV EF SLOPE: 59.11 mm/s (70 - 150) MV EXCURSION: 17.70 mm (> 18.000) FINDINGS -------- AICD This was a technically difficult study with suboptimal views. The left ventricle is mildly dilated. Left ventricular wall thickness is normal. There is severe global hypokinesis of LV . Overall left ventricular systolic function is severely impaired with, an EF between 20 - 25 %. The right ventricle is normal in size. The left atrial size is normal. The right atrial size is normal. Lumason used The aortic valve is trileaflet and appears structurally normal. Trace amount of aortic regurgitatio n. The mitral valve is normal. Moderate mitral regurgitation is present. The tricuspid valve appears structurally normal. Mild tricuspid regurgitation present. Right vent ricular systolic pressure is normal at < 35 mmHg. There is no pulmonic regurgitation present. The aortic root size is normal. IVC Not well visulized. There is no pericardial effusion. CONCLUSIONS -------- 1. AICD 2. The left ventricle is mildly dilated. 3. Left ventricular wall thickness is normal. 4. There is severe global hypokinesis of LV . 5. Overall left ventricular systolic function is severely impaired with, an EF between 20 - 25 %. 6. Trace amount of aortic regurgitation. 7. Moderate mitral regurgitation is present. 8. Mild tricuspid regurgitation present. 9. There is no pericardial effusion. CASINO FLOOR RUNNER: Izabella Joshua RDCS
[2021-09-05 16:52] LABS: Glucose,Whole Blood 224 mg/dL (75-99)
[2021-09-05] MEDS: SODIUM CHLORIDE 0.45% 1,000 ML with SODIUM BICARB (1 MEQ/ML) 150 ML IV SCH ×4 (18:24→23:13)
[2021-09-05 18:41] LABS: Appearance,Urine Clear (Clear); Bilirubin,Urine Negative (Negative); Blood,Urine Negative (Negative); Color,Urine Light Yellow; Glucose,Urine (UA) Negative (Negative); Ketones,Urine Negative (Negative); Leukocyte Esterase,Urine Negative (Negative); Nitrite,Urine Negative (Negative); Protein,Urine Negative (Negative); Specific Gravity,Urine 1.008 (1.001-1.035); Urobilinogen,Urine <2.0 mg/dL (<2.0)
[2021-09-05 19:53] LABS: Glucose,Whole Blood 188 mg/dL (75-99)
[2021-09-05] MEDS: ATORVASTATIN 80 MG TAB PO SCH (20:49)
[2021-09-05] MEDS: ENOXAPARIN 60 MG/0.6 ML SYRINGE SQ SCH (21:02)
[2021-09-06 00:58] LABS: Magnesium 1.3 mg/dL (1.6-2.3); Potassium 4.4 mmol/L (3.5-5.1)
[2021-09-06] MEDS: MAGNESIUM SULFATE-D5W PMX 1 GM in DEXTROSE/WATER 1 100ML.BAG IVPB SCH ×2 (01:40→02:45)
[2021-09-06] MEDS: FUROSEMIDE 10 MG/ML 4 ML VIAL IV SCH ×3 (03:45→17:14)
[2021-09-06 06:15] LABS: Glucose,Whole Blood 178 mg/dL (75-99)
[2021-09-06] MEDS: INSULIN ASPART (NovoLOG) 100 UNIT/ML VIAL SQ SCH ×4 (06:37→20:14)
[2021-09-06] MEDS: carvediloL 12.5 MG TAB PO SCH ×2 (06:38→17:14)
[2021-09-06] MEDS: ASPIRIN 81 MG PO SCH (08:57)
[2021-09-06] MEDS: CLOPIDOGREL 75 MG TAB PO SCH (08:57)
[2021-09-06] MEDS: PANTOPRAZOLE 40 MG TABLET PO SCH ×2 (08:57→20:14)
[2021-09-06] MEDS: allopurinoL 100 MG TAB PO SCH (08:57)
[2021-09-06] MEDS: NITROGLYCERIN OINT 1 INCH/GM PACKET TOPICAL SCH ×4 (08:57→22:56)
--- NOTE | 2021-09-06 10:30 | P.PN ---
Subjective This is a pleasant 70-year-old male past medical history significant for type 2 diabetes, hypertension, dyslipidemia, coronary artery disease status post four- vessel CABG 2002 (LEWIS-LAD, VG-OM1, VG-OM2, VG-PDA), ischemic cardiomyopathy s/p ICD implantation 2018 at [facility], chronic kidney disease. He follows in the office with Dr. Michael. We have been asked to see in consultation for acute pulmonary edema and elevated troponin. Patient presents to the emergency department with worsening shortness of breath. He states he has been having s ymptoms of shortness of breath for a few months now. However, over the past couple days he been having worsening shortness of breath and dyspnea on exertion. Yesterday he states he had an episode of chest discomfort, describes it as a pressure. It was non-radiating, non-exertional. He called his sister, she noted him being diaphoretic. He also was very short of breath. He decided to present to the emergency department for further evaluation. He also endorses about 2lb weight gain. He has symptoms of orthopnea. He states he has been having difficulty sleeping due to shortness of breath. He denies nausea, vomiting, abdominal pain, fever or chills. He is a non-smoker. DIAGNOSTICS Most recent echocardiogram in the office 03/30/2021 revealed EF of 3035 percent, grade 2 diastolic dysfunction, mild left ventricular hypertrophy, moderate mitral regurgitation, [id number] tricuspid regurgitation, moderate increased pulmonary artery systolic pressure 55mmHg, moderate pulmonic regurgitation Lexiscan in the office 03/28/21- No evidence of significant stress induced ischemia. Abnormal myocardial perfusion imaging with predominantly fixed anteroapical and anterolateral defect with segmental wall motion abnormality consistent with prior CO. 09/06/21: Patient seen and examined at bedside, continues to have shortness of breath and orthopnea. Echocardiogram revealed an EF of 5 percent, moderate retrograde 22, mild tricuspid regurgitation. Patient with 1.2L urine output over the past 24 hours. He's currently maintaining on a sodium bicarb drip at 50 mL an hour, aspirin 81 daily, atorvastatin 80 mg nightly, Coreg 12.5 mg twice a day, IV Lasix 40 mg Q8hr, Sq lovenox. Patient allergic to heparin. Labs are still pending from today. PHYSICAL EXAMINATION Blood pressure 108/67, heart rate 83, afebrile, maintaining oxygen saturations 99% on 3 L nasal cannula CONSTITUTIONAL: No apparent distress. HEENT: Neck Supple. Mild JVD. CHEST EXAMINATION: Lungs diminished bilaterally to auscultation HEART EXAMINATION: Regular rate and rhythm. S1, S2 heard. Systolic murmur at apex ABDOMEN: Soft, nontender. Positive bowel sounds. EXTREMITIES: 2+ peripheral pulses, no lower extremity edema and no calf tende rness. NEUROLOGIC EXAMINATION: Patient is awake, alert and oriented x3. ASSESSMENT Acute systolic heart failure NSTEMI Hyperkalemia Severe metabolic acidosis Acute on Chronic kidney disease Type 2 diabetes Hypertension Dyslipidemia Coronary artery disease status post four-vessel CABG 2002 (LEWIS-LAD, VG-OM1, VG- OM2, VG-PDA) Ischemic cardiomyopathy s/p ICD implantation 2018 PLAN Continue IV Lasix 40mg Q8hr Continue aspirin, plavix, statin, carvedilol Due to patient's renal failure we will stop Lovenox No plans for cardiac catheterization today. Nephrology following, maintaining on bicarb drip Monitor I/Os, daily weights Monitor renal function and electrolytes Further recommendations based on clinical course Nurse Practitioner note has been reviewed, I agree with a documented findings and plan of care. Patient was seen and examined. Objective - Vital Signs Vital signs: Vital Signs Temp 98.2 F 09/06/21 08:45 Pulse 83 09/06/21 08:45 Resp 20 09/06/21 08:45 BP 108/67 09/06/21 08:45 Pulse Ox 99 09/06/21 08:45 Intake & Output 09/05/21 09/06/21 09/06/21 18:59 06:59 18:59 Intake Total 280 240 Output Total 475 775 Balance -195 -775 240 Weight 65.771 kg 66.9 kg Intake: Intake, IV Titration 100 Amount Calcium Gluconate 1 gm In 100 Sodium Chloride 0.9% 100 ml @ 100 mls/hr IVPB ONCE ONE Rx#:[id number] Oral 180 240 Output: Urine 475 775 Other: Voiding Method Urinal Urinal # Voids 1 # Bowel Movements 1 - Labs CBC & Chem 7: 09/04/21 11:20 09/06/21 00:26 Labs: Abnormal Lab Results - Last 24 Hours (Table) 09/05/21 09/05/21 09/05/21 Range/Units 03:09 13:07 16:51 POC Glucose (mg/dL) 165 H 224 H (75-99) mg/dL Magnesium (1.6-2.3) mg/dL Troponin I 8.830 H* (0.000-0.034) ng/mL 09/05/21 09/06/21 09/06/21 Range/Units 19:51 00:26 06:14 POC Glucose (mg/dL) 188 H 178 H (75-99) mg/dL Magnesium 1.3 L (1.6-2.3) mg/dL Troponin I (0.000-0.034) ng/mL
[2021-09-06 11:39] LABS: Glucose,Whole Blood 267 mg/dL (75-99)
[2021-09-06 11:41] LABS: Calcium 8.9 mg/dL (8.4-10.2)
[2021-09-06] MEDS: SODIUM CHLORIDE 0.45% 1,000 ML with SODIUM BICARB (1 MEQ/ML) 150 ML IV SCH ×2 (12:19)
[2021-09-06 13:15] LABS: HCT 27.9 % (39.0-53.0); MCH 36.5 pg (25.0-35.0); MCHC 32.8 g/dL (31.0-37.0); Macrocytosis Marked; Mean Platelet Volume 8.7; Platelet Count 222 k/uL (150-450); RBC 2.51 m/uL (4.30-5.90); RDW 13.8 % (11.5-15.5); WBC 7.7 k/uL (3.8-10.6)
[2021-09-06 13:33] LABS: HGB 9.2 gm/dL (13.0-17.5); MCV 111.1 fL (80.0-100.0)
[2021-09-06 16:45] LABS: Glucose,Whole Blood 226 mg/dL (75-99)
--- NOTE | 2021-09-06 18:42 | PN ---
PROGRESS NOTE Patient is seen for followup for acute kidney injury. He was admitted to the hospital with shortness of breath and weakness and found to have severe hyperkalemia. He does have underlying chronic kidney disease. Baseline creatinine has been around 2 mg/dL. Patient is currently maintained on diuresis. His potassium has improved and staying at about 4.4 to 5 mEq/L. Patient was also severely acidotic and he is maintained on bicarb drip. The drip has been decreased to 50 mL/hour. Patient ruled in for acute DE. His troponin was as high as 9.9. Now it is down to 5.6. Patient is currently asymptomatic, with no complaints of chest pains or shortness of breath. On examination, blood pressure this morning 114/68, heart rate of 86 per minute. Patient is afebrile. EXAMINATION OF THE HEART: S1 and S2. EXAMINATION OF LUNGS: Bilateral breath sounds are heard. Examination of the lungs also shows bilateral crackles. Abdomen is soft, non-tender. Examination of lower extremities shows 1+ edema bilaterally. FOOD SERVICE LEAD EXAM: Grossly intact. Labs show hemoglobin 9.2, white cell count 7.7, sodium 136, potassium 5.0. CO2 is 17, BUN 71, creatinine 2.2 mg per dL. Troponin 5.6. ASSESSMENT: 1. Chronic kidney disease, NKF stage 4, with baseline creatinine about 1.9 to 2 mg/dL. Renal function is currently not too far from baseline. There may be a component of cardiorenal acute kidney injury. We will continue with the diuresis. Patient is maintained on IV Lasix q.8 hours, which will be continued. No nephrotoxic agents on board. 2. Hyperkalemia associated with acute kidney injury, increased potassium intake and use of angiotensin receptor blockers, currently improved. 3. Severe metabolic acidosis, maintained on a bicarb drip. It is mostly non-gap and etiology is secondary to renal failure and also lactic acidosis, which could be related to the metformin use. Lactic acid has decreased to 1.7 from 3.6. 4. Acute [id number] myocardial infarction, being followed by Cardiology, maintained on aspirin and Plavix and beta blockers. 5. Gastroesophageal reflux disease. 6. Hypomagnesemia, status post replacement. 7. Chronic kidney disease, stage 3B to 4. Baseline creatinine around 1.9 to 2 mg/dL. Etiology solitary kidney and nephrosclerosis. There is no evidence of proteinuria on UA. 8. Solitary kidney. Patient's left kidney is not visualized. His right kidney is slightly larger at 14.9 cm 9. Type 2 diabetes with hyperglycemia on initial admission, currently improved. PLAN: 1. Continue with the bicarb drip. Continue with IV Lasix. I will add oral sodium bicarb and we will discontinue the IV fluids in a.m. Patient should remain off of angiotensin receptor blockers for now and we can try to add low-dose Cozaar like 25 mg as outpatient with close monitoring of labs. MMODL / IJN: [id number] / MTDD
[2021-09-06 19:58] LABS: Glucose,Whole Blood 261 mg/dL (75-99)
[2021-09-06] MEDS: ATORVASTATIN 80 MG TAB PO SCH (20:14)
--- NOTE | 2021-09-06 21:05 | P.PN ---
Progress Note - Text Progress Note Date: 09/06/21 Chief Complaint: Short of breath This is a pleasant 70-year-old patient was chronic stable medical conditions include diabetes, peptic ulcer disease, unilateral right kidney, gout, CAD with a bypass, AICD. Has known underlying ischemic cardiomyopathy. Patient presente d increasing shortness of breath through the previous night. Some chest pressure. Slight perspiration. Minimal cough. No fever no chills. No lower extremity swelling. Presents to the ER. Admitted with acute non-Q-wave [place], acute on chronic congestive heart exacerbation, acute hypoxic respiratory failure. Metabolic acidosis. Hyperkalemia. Treated with BiPAP, IV Lasix, bicarb Kayexalate. 09/05/2021: Sitting up in bed. Short of breath. On nasal cannula. Tired. No chest pain. 09/06/2021: Sitting at the age of the bed. Breathing better. Decreased appetite. Nasal cannula. On IV Lasix. Review of systems: Was done for constitutional, cardiovascular, GI, pulmonary. relevant finding as above Active Medications Allopurinol (Allopurinol 100 Mg Tab) 100 mg PO DAILY [facility] Last Admin: 09/06/21 08:57 Dose: 100 mg Documented by: Aspirin (Aspirin 81 Mg) 81 mg PO DAILY [facility] Last Admin: 09/06/21 08:57 Dose: 81 mg Documented by: Atorvastatin Calcium (Atorvastatin 80 Mg Tab) 80 mg PO HS [facility] Last Admin: 09/06/21 20:14 Dose: 80 mg Documented by: Carvedilol (Carvedilol 12.5 Mg Tab) 12.5 mg PO BID-W/MEALS [facility] Last Admin: 09/06/21 17:14 Dose: 12.5 mg Documented by: Clopidogrel Bisulfate (Clopidogrel 75 Mg Tab) 75 mg PO DAILY [facility] Last Admin: 09/06/21 08:57 Dose: 75 mg Documented by: Furosemide (Furosemide 10 Mg/Ml 4 Ml Vial) 40 mg IV Q8H [facility] Last Admin: 09/06/21 17:14 Dose: 40 mg Documented by: Sodium Bicarbonate 150 ml/ (Sodium Chloride) 1,150 mls @ 50 mls/hr IV .Q23H [facility] Last Admin: 09/06/21 12:19 Dose: 50 mls/hr Documented by: Insulin Aspart (Insulin Aspart (Novolog) 100 Unit/Ml Vial) 0 unit SQ ACHS [facility]; Protocol Last Admin: 09/06/21 20:14 Dose: 4 unit Documented by: Nitroglycerin (Nitroglycerin Oint 1 Inch/Gm Packet) 1 inch TOPICAL QID [facility] Last Admin: 09/06/21 17:14 Dose: 1 inch Documented by: Pantoprazole Sodium (Pantoprazole 40 Mg Tablet) 40 mg PO BID [facility] Last Admin: 09/06/21 20:14 Dose: 40 mg Documented by: Past medical history to include: Diabetes mellitus type 2, COPD, AICD, peptic ulcer disease, unilateral right kidney, gout, CAD with a bypass Family history: Breast cancer, hypertension Social history: No history of smoking or alcohol. Physical examination: VITAL SIGNS: 98.2, 83, 20, 108/67, 99% 3 L GENERAL: Sitting edge of the bed, nasal cannula, breathing better. EYES: Pupils equal. Conjunctiva normal. HEENT: External appearance of nose and ears normal, oral cavity grossly normal. NECK: JVD unable to assess; masses not palpable. HEART: First and second heart sounds are normal; no edema. LUNGS: Respiratory rate increased, diminished breath sounds ABDOMEN: Soft, nontender, liver spleen not palpable, no masses palpable. PSYCH: [Alert and oriented x3; mood and affect normal. INVESTIGATIONS, reviewed in the clinical context: September 06: Potassium 5 BUN 71 and creatinine 2.21 WBC 7.7 hemoglobin 9.2 September 05: Potassium 5 bicarb 17 BUN 65 creatinine 2.17 troponin I 8.8 Renal ultrasound: Right renal cortical cyst. No hydronephrosis. Right kidney is enlarged. Nonobstructing small renal calculus. Left kidney not seen. WBC 11.2 hemoglobin 10.9 platelets 347 sodium 140 potassium 7.5/6.1 BUN 60 creatinine 2.06 Troponin I 0.414, 3.4, 90.9 ProBNP 48685 EKG tracing personally reviewed by me-atrial sensed ventricular paced rhythm. Chest x-ray film personally reviewed by me-pulmonary edema Previous labs: [May 2021]: BUN 53 creatinine 2.5 Assessment and plan: -Acute non-Q wave myocardial infarction Lipitor, Coreg, aspirin. Plavix -Acute on chronic congestive heart failure exacerbation: Better IV Lasix. 40 mg every 8. -Biventricular AICD -Chronic kidney disease stage IV from diabetic nephropathy and hypertensive nephrosclerosis Follow renal function -Severe hyperkalemia in the setting of CK D.: Better Hold Cozaar. Sodium bicarb. Dextrose. Insulin. Kayexalate. -Unilateral right kidney -Chronic gout Continue allopurinol -Acute hypoxic respiratory failure from pulmonary edema: Better BiPAP. Now on 3 L nasal cannula -Acute metabolic acidosis from renal failure.: Slow to respond Bicarbonate drip -CAD with a prior history of coronary bypass Coreg. Plavix. Aspirin. -Peptic ulcer disease PPI. -Diabetes mellitus type 2 on oral hypoglycemic Hold oral hypoglycemic. Follow Accu-Cheks and sliding scale insulin. On bicarbonate Drip. Discussed with the patient. Continue other medications.. IV Lasix. Follow labs
[2021-09-07] MEDS: FUROSEMIDE 10 MG/ML 4 ML VIAL IV SCH ×2 (03:20→21:03)
[2021-09-07 06:26] LABS: Glucose,Whole Blood 180 mg/dL (75-99)
[2021-09-07] MEDS: INSULIN ASPART (NovoLOG) 100 UNIT/ML VIAL SQ SCH ×4 (06:31→20:58)
[2021-09-07] MEDS: carvediloL 12.5 MG TAB PO SCH ×2 (06:31→16:59)
[2021-09-07] MEDS: CLOPIDOGREL 75 MG TAB PO SCH (09:02)
[2021-09-07] MEDS: PANTOPRAZOLE 40 MG TABLET PO SCH ×2 (09:02→20:58)
[2021-09-07] MEDS: ASPIRIN 81 MG PO SCH (09:03)
[2021-09-07] MEDS: NITROGLYCERIN OINT 1 INCH/GM PACKET TOPICAL SCH ×2 (09:03→12:07)
[2021-09-07] MEDS: allopurinoL 100 MG TAB PO SCH (09:03)
[2021-09-07 09:04] LABS: Calcium 8.4 mg/dL (8.4-10.2); Magnesium 1.7 mg/dL (1.6-2.3); Potassium 3.4 mmol/L (3.5-5.1)
[2021-09-07] MEDS ORDERED: Potassium Replacement Protocol 1 EACH MISC MISCELLANE PRN (10:31)
--- NOTE | 2021-09-07 10:36 | P.PN ---
Subjective This is a pleasant 70-year-old male past medical history significant for type 2 diabetes, hypertension, dyslipidemia, coronary artery disease status post four- vessel CABG 2002 (LEWIS-LAD, VG-OM1, VG-OM2, VG-PDA), ischemic cardiomyopathy s/p ICD implantation 2018 at [facility], chronic kidney disease. He follows in the office with Dr. Michael. We have been asked to see in consultation for acute pulmonary edema and elevated troponin. Patient presents to the emergency department with worsening shortness of breath. He states he has been having s ymptoms of shortness of breath for a few months now. However, over the past couple days he been having worsening shortness of breath and dyspnea on exertion. Yesterday he states he had an episode of chest discomfort, describes it as a pressure. It was non-radiating, non-exertional. He called his sister, she noted him being diaphoretic. He also was very short of breath. He decided to present to the emergency department for further evaluation. He also endorses about 2lb weight gain. He has symptoms of orthopnea. He states he has been having difficulty sleeping due to shortness of breath. He denies nausea, vomiting, abdominal pain, fever or chills. He is a non-smoker. DIAGNOSTICS Most recent echocardiogram in the office 03/30/2021 revealed EF of 3035 percent, grade 2 diastolic dysfunction, mild left ventricular hypertrophy, moderate mitral regurgitation, [id number] tricuspid regurgitation, moderate increased pulmonary artery systolic pressure 55mmHg, moderate pulmonic regurgitation Lexiscan in the office 03/28/21- No evidence of significant stress induced ischemia. Abnormal myocardial perfusion imaging with predominantly fixed anteroapical and anterolateral defect with segmental wall motion abnormality consistent with prior DC. Echocardiogram revealed an EF of 2025 percent, moderate mitral regurgitation, mild tricuspid regurgitation. 09/07/21: Patient seen and examined at bedside, continues to have shortness of breath, but improving. Patient with 525mL urine output documented over 24 hours. His bicarb drip has been discontinued, he is on aspirin 81 daily, atorvastatin 80 mg nightly, Coreg 12.5 mg twice a day, IV Lasix 40 mg BID (changed per nephrology) Patient allergic to heparin. Sodium 136, potassium 3.4, BUN 76, serum 2.5, magnesium 1.7, potassium 3.7, hemoglobin 9.2, platelets 222. PHYSICAL EXAMINATION Blood pressure 100/55, heart rate 85, afebrile, maintaining oxygen saturations on 2 L nasal cannula CONSTITUTIONAL: No apparent distress. HEENT: Neck Supple. Mild JVD. CHEST EXAMINATION: Lungs diminished bilaterally to auscultation HEART EXAMINATION: Regular rate and rhythm. S1, S2 heard. Systolic murmur at apex ABDOMEN: Soft, nontender. Positive bowel sounds. EXTREMITIES: 2+ peripheral pulses, no lower extremity edema and no calf tenderness. NEUROLOGIC EXAMINATION: Patient is awake, alert and oriented x3. ASSESSMENT Acute systolic heart failure NSTEMI Hyperkalemia Severe metabolic acidosis Acute on Chronic kidney disease Type 2 diabetes Hypertension Dyslipidemia Coronary artery disease status post four-vessel CABG 2002 (LEWIS-LAD, VG-OM1, VG-OM2, VG-PDA) Ischemic cardiomyopathy s/p ICD implantation 2018 PLAN Continue IV Lasix Continue aspirin, plavix, statin, carvedilol No plans for cardiac catheterization. Nephrology following, managing diuresis Monitor I/Os, daily weights Monitor renal function and electrolytes Further recommendations based on clinical course Nurse Practitioner note has been reviewed, I agree with a documented findings and plan of care. Patient was seen and examined. Objective - Vital Signs Vital signs: Vital Signs Temp 97.4 F L 09/07/21 08:00 Pulse 85 09/07/21 08:00 Resp 20 09/07/21 08:00 BP 100/55 09/07/21 08:00 Pulse Ox 95 09/07/21 08:00 Intake & Output 09/06/21 09/07/21 09/07/21 18:59 06:59 18:59 Intake Total 1420 240 Output Total 325 200 Balance 1095 -200 240 Weight 66.9 kg Intake: Intake, IV Titration 400 Amount Sodium Chloride 0.45% 1, 400 000 ml @ 50 mls/hr IV . Q23H [facility]ATT with Sodium Bicarb (1 Meq/ml) 150 ml Rx#:[id number] Oral 1020 240 Output: Urine 325 200 Other: Voiding Method Urinal # Voids 1 - Labs CBC & Chem 7: 09/06/21 13:00 09/07/21 07:44 Labs: Abnormal Lab Results - Last 24 Hours (Table) 09/06/21 09/06/21 09/06/21 Range/Units 10:20 10:25 11:37 RBC (4.30-5.90) m/uL Hgb (13.0-17.5) gm/dL Hct (39.0-53.0) % MCV (80.0-100.0) fL MCH (25.0-35.0) pg Macrocytosis Sodium 136 L (137-145) mmol/L Potassium (3.5-5.1) mmol/L Chloride (98-107) mmol/L Carbon Dioxide 17 L (22-30) mmol/L BUN 71 H (9-20) mg/dL Creatinine 2.21 H (0.66-1.25) mg/dL Glucose 257 H (74-99) mg/dL POC Glucose (mg/dL) 267 H (75-99) mg/dL Troponin I 5.670 H* (0.000-0.034) ng/mL 09/06/21 09/06/21 09/06/21 Range/Units 13:00 16:44 19:57 RBC 2.51 L (4.30-5.90) m/uL Hgb 9.2 L D (13.0-17.5) gm/dL Hct 27.9 L (39.0-53.0) % MCV 111.1 H D (80.0-100.0) fL MCH 36.5 H (25.0-35.0) pg Macrocytosis Marked A Sodium (137-145) mmol/L Potassium (3.5-5.1) mmol/L Chloride (98-107) mmol/L Carbon Dioxide (22-30) mmol/L BUN (9-20) mg/dL Creatinine (0.66-1.25) mg/dL Glucose (74-99) mg/dL POC Glucose (mg/dL) 226 H 261 H (75-99) mg/dL Troponin I (0.000-0.034) ng/mL 09/07/21 09/07/21 Range/Units 06:25 07:44 RBC (4.30-5.90) m/uL Hgb (13.0-17.5) gm/dL Hct (39.0-53.0) % MCV (80.0-100.0) fL MCH (25.0-35.0) pg Macrocytosis Sodium 136 L (137-145) mmol/L Potassium 3.4 L (3.5-5.1) mmol/L Chloride 94 L (98-107) mmol/L Carbon Dioxide (22-30) mmol/L BUN 76 H (9-20) mg/dL Creatinine 2.55 H (0.66-1.25) mg/dL Glucose 284 H (74-99) mg/dL POC Glucose (mg/dL) 180 H (75-99) mg/dL Troponin I (0.000-0.034) ng/mL
[2021-09-07 11:20] LABS: Glucose,Whole Blood 234 mg/dL (75-99)
[2021-09-07] MEDS: POTASSIUM CHLORIDE ER 20 MEQ TAB.ER PO SCH ×3 (12:07→16:59)
--- NOTE | 2021-09-07 12:56 | PN ---
PROGRESS NOTE Patient is seen for followup for acute kidney injury, mostly cardiorenal. Patient is currently being diuresed. His creatinine increased to 2.5 today from 2.2. His volume status has improved. PHYSICAL EXAMINATION: On examination today, blood pressure was 100/55, heart rate 85 per minute. He is afebrile. Examination of the heart S1, S2. Examination of the lungs, decreased breath sounds at the bases. Abdomen is soft, nontender. Examination of lower extremities shows trace edema bilaterally. RESIDENT PROGRAMS ASSISTANT exam grossly intact. LAB: Show sodium 136, potassium 3.4, BUN 76, creatinine 2.5. ASSESSMENT: 1. Acute kidney injury, cardiorenal, slightly worsened secondary to diuresis. I will decrease the Lasix to q.12 hours. 2. Chronic kidney disease stage 4. Baseline creatinine 1.9-2 mg/dL. Etiology is nephrosclerosis and cardiorenal syndrome as well as solitary kidney. No evidence of proteinuria on UA. 3. Hyperkalemia associated with acute kidney injury and increased potassium intake in the setting of use of angiotensin receptor blockers, currently improved. 4. Severe metabolic acidosis, maintained on bicarb drip, etiology renal failure and possibly related to metformin as patient also had lactic acidosis. 5. Acute non ST elevation myocardial infarction being followed by Cardiology, maintained on aspirin, Plavix, and beta blockers. 6. Gastroesophageal reflux disease. 7. Hypomagnesemia status post replacement. 8. Solitary kidney. The patient's left kidney is not visualized. Right kidney is slightly on the larger side at 14.9 cm. PLAN: Discontinue bicarb drip and decrease Lasix to q.12 hours. Replace potassium. MMODL / IJN: [id number] /
[2021-09-07] MEDS ORDERED: NON FORMULARY DRUG (Sitagliptin Phos/Metformin Hcl [Janumet 50-1,000 Mg Tablet] 1 EACH Tab PO SCH (13:00)
[2021-09-07 16:35] LABS: Glucose,Whole Blood 274 mg/dL (75-99)
[2021-09-07] MEDS: LOSARTAN 50 MG TAB PO SCH (16:59)
--- NOTE | 2021-09-07 17:37 | XR ---
EXAMINATION TYPE: XR chest 2V DATE OF EXAM: 09/07/2021 COMPARISON: Chest x-ray 09/04/2021 HISTORY: Congestive heart failure follow-up TECHNIQUE: Frontal and lateral views of the chest are obtained. FINDINGS: Patient is post median sternotomy. Heart remains enlarged. There is blunting the costophre randy angles. There is a generator in the left pectoral region, leads are present right atrium and vent ricle, coronary sinus. The pulmonary arteries appear enlarged. There is some improvement in aeration within the lungs, interstitium remains somewhat increased. There is no evident pneumothorax. Biapical pleural thickening is noted. There is arthropathy within the shoulders. Prominent lung volume with f lattening of the hemidiaphragms suggests underlying COPD. IMPRESSION: Suspect some improvement in aeration, patient's volume status. Correlate for pulmonary a rtery hypertension. There may be small effusions.
[2021-09-07 20:12] LABS: Glucose,Whole Blood 257 mg/dL (75-99)
[2021-09-07] MEDS: ATORVASTATIN 80 MG TAB PO SCH (20:58)
--- NOTE | 2021-09-08 00:42 | P.PN ---
Progress Note - Text Progress Note Date: 09/07/21 Chief Complaint: Short of breath This is a pleasant 70-year-old patient was chronic stable medical conditions include diabetes, peptic ulcer disease, unilateral right kidney, gout, CAD with a bypass, AICD. Has known underlying ischemic cardiomyopathy. Patient presente d increasing shortness of breath through the previous night. Some chest pressure. Slight perspiration. Minimal cough. No fever no chills. No lower extremity swelling. Presents to the ER. Admitted with acute non-Q-wave [place], acute on chronic congestive heart exacerbation, acute hypoxic respiratory failure. Metabolic acidosis. Hyperkalemia. Treated with BiPAP, IV Lasix, bicarb Kayexalate. 09/05/2021: Sitting up in bed. Short of breath. On nasal cannula. Tired. No chest pain. 09/06/2021: Sitting at the age of the bed. Breathing better. Decreased appetite. Nasal cannula. On IV Lasix. 09/07/2021: Sitting up. Diet. Decrease appetite. Concerned about his overall condition. Some shortness of breath. On IV Lasix. Review of systems: Was done for constitutional, cardiovascular, GI, pulmonary. relevant finding as above Active Medications Allopurinol (Allopurinol 100 Mg Tab) 100 mg PO DAILY [facility] Last Admin: 09/07/21 09:03 Dose: 100 mg Documented by: Aspirin (Aspirin 81 Mg) 81 mg PO DAILY [facility] Last Admin: 09/07/21 09:03 Dose: 81 mg Documented by: Atorvastatin Calcium (Atorvastatin 80 Mg Tab) 80 mg PO HS [facility] Last Admin: 09/07/21 20:58 Dose: 80 mg Documented by: Carvedilol (Carvedilol 12.5 Mg Tab) 12.5 mg PO BID-W/MEALS [facility] Last Admin: 09/07/21 16:59 Dose: 12.5 mg Documented by: Clopidogrel Bisulfate (Clopidogrel 75 Mg Tab) 75 mg PO DAILY [facility] Last Admin: 09/07/21 09:02 Dose: 75 mg Documented by: Furosemide (Furosemide 10 Mg/Ml 4 Ml Vial) 40 mg IV Q12HR [facility] Last Admin: 09/07/21 21:03 Dose: 40 mg Documented by: Insulin Aspart (Insulin Aspart (Novolog) 100 Unit/Ml Vial) 0 unit SQ ACHS [facility]; Protocol Last Admin: 09/07/21 20:58 Dose: 4 unit Documented by: Losartan Potassium (Losartan 50 Mg Tab) 100 mg PO DAILY [facility] Last Admin: 09/07/21 16:59 Dose: 100 mg Documented by: Miscellaneous Information (Potassium Replacement [facility] each [facility] DAILY PRN; Protocol PRN Reason: Per Protocol Pantoprazole Sodium (Pantoprazole 40 Mg Tablet) 40 mg PO BID [facility] Last Admin: 09/07/21 20:58 Dose: 40 mg Documented by: Past medical history to include: Diabetes mellitus type 2, COPD, AICD, peptic ulcer disease, unilateral right kidney, gout, CAD with a bypass Family history: Breast cancer, hypertension Social history: No history of smoking or alcohol. Physical examination: VITAL SIGNS: 98.2, 73, 16, 91/59, 95% on 2 L GENERAL: Sitting edge of the bed, nasal cannula, breathing better. EYES: Pupils equal. Conjunctiva normal. HEENT: External appearance of nose and ears normal, oral cavity grossly normal. NECK: JVD unable to assess; masses not palpable. HEART: First and second heart sounds are normal; no edema. LUNGS: Respiratory rate increased, diminished breath sounds ABDOMEN: Soft, nontender, liver spleen not palpable, no masses palpable. PSYCH: [Alert and oriented x3; mood and affect normal. INVESTIGATIONS, reviewed in the clinical context: September 06 was: Potassium 3.4 BUN 76 creatinine 2.55 September 06: Potassium 5 BUN 71 and creatinine 2.21 WBC 7.7 hemoglobin 9.2 September 05: Potassium 5 bicarb 17 BUN 65 creatinine 2.17 troponin I 8.8 Renal ultrasound: Right renal cortical cyst. No hydronephrosis. Right kidney is enlarged. Nonobstructing small renal calculus. Left kidney not seen. WBC 11.2 hemoglobin 10.9 platelets 347 sodium 140 potassium 7.5/6.1 BUN 60 creatinine 2.06 Troponin I 0.414, 3.4, 90.9 ProBNP 11414 EKG tracing personally reviewed by me-atrial sensed ventricular paced rhythm. Chest x-ray film personally reviewed by me-pulmonary edema Previous labs: [May 2021]: BUN 53 creatinine 2.5 Assessment and plan: -Acute non-Q wave myocardial infarction Lipitor, Coreg, aspirin. Plavix -Acute on chronic congestive heart failure exacerbation: Better IV Lasix. 40 mg every 8. -Biventricular AICD -Chronic kidney disease stage IV from diabetic nephropathy and hypertensive nephrosclerosis Follow renal function -Acute kidney injury possibly ATN from cardiorenal syndrome For labs closely with nephrology. -Severe hyperkalemia in the setting of CK D.: Better Hold Cozaar. Sodium bicarb. Dextrose. Insulin. Kayexalate. -Unilateral right kidney -Chronic gout Continue allopurinol -Acute hypoxic respiratory failure from pulmonary edema: Better BiPAP. Now on 3 L nasal cannula -Acute metabolic acidosis from renal failure.: Slow to respond Bicarbonate drip -CAD with a prior history of coronary bypass Coreg. Plavix. Aspirin. -Peptic ulcer disease PPI. -Diabetes mellitus type 2 on oral hypoglycemic Hold oral hypoglycemic. Follow Accu-Cheks and sliding scale insulin. Lasix 40 mg every 12. Bicarbonate drip discontinued. Follow labs closely. Discussed at length with patient.
[2021-09-08 06:13] LABS: Glucose,Whole Blood 127 mg/dL (75-99)
[2021-09-08] MEDS: INSULIN ASPART (NovoLOG) 100 UNIT/ML VIAL SQ SCH ×4 (06:13→21:33)
[2021-09-08] MEDS: carvediloL 12.5 MG TAB PO SCH ×2 (06:16→17:34)
[2021-09-08 07:06] LABS: Magnesium 1.7 mg/dL (1.6-2.3)
[2021-09-08] MEDS: PANTOPRAZOLE 40 MG TABLET PO SCH ×2 (07:51→21:33)
[2021-09-08] MEDS: ASPIRIN 81 MG PO SCH (07:51)
[2021-09-08] MEDS: LOSARTAN 50 MG TAB PO SCH (07:51)
[2021-09-08] MEDS: CLOPIDOGREL 75 MG TAB PO SCH (07:51)
[2021-09-08] MEDS: allopurinoL 100 MG TAB PO SCH (07:51)
[2021-09-08] MEDS ORDERED: FUROSEMIDE 10 MG/ML 4 ML VIAL IV SCH (10:30)
[2021-09-08] MEDS: FUROSEMIDE 10 MG/ML 4 ML VIAL IV SCH ×2 (11:00→13:07)
[2021-09-08 11:50] LABS: Glucose,Whole Blood 308 mg/dL (75-99)
--- NOTE | 2021-09-08 12:01 | P.PN ---
Subjective Progress Note Date: 09/08/21 Principal diagnosis: Acute coronary syndrome The patient is a pleasant 70-year-old gentleman with a past medical history significant for coronary artery disease and prior revascularization as well as ischemic cardiomyopathy and status post AICD as well as chronic kidney disease and multiple comorbid conditions was admitted to the hospital with heart failure exacerbation secondary to systolic dysfunction with acute coronary syndrome. The patient was seen this morning. He stated that he is feeling better. The shortness of breath has improved. He has no symptoms of chest pain or chest discomfort. The pressure is marginal and the dose of losartan was decreased. We are going to switch him from Lasix IV to Lasix by mouth today. We anticipate that the patient potentially can be discharged in the next 12 hours to 24 hours. His creatinine this morning was 3.1 which is slightly above his baseline. Beside that he is on dual antiplatelet therapy along with high intensity statin Objective - Vital Signs Vital signs: Vital Signs Temp 98 F 09/08/21 07:47 Pulse 63 09/08/21 11:36 Resp 18 09/08/21 11:36 BP 97/47 09/08/21 07:47 Pulse Ox 100 09/08/21 07:47 Intake & Output 09/07/21 09/08/21 09/08/21 18:59 06:59 18:59 Intake Total 1020 600 Output Total 100 Balance 1020 -100 600 Weight 67 kg Intake: Oral 1020 600 Output: Urine 100 Other: # Voids 1 - Constitutional General appearance: Present: no acute distress - Respiratory Respiratory: bilateral: diminished - Cardiovascular Rhythm: regular Heart sounds: normal: S1, S2 - Labs CBC & Chem 7: 09/06/21 13:00 09/08/21 06:04 Labs: Abnormal Lab Results - Last 24 Hours (Table) 09/07/21 09/07/21 09/08/21 Range/Units 16:34 20:08 06:04 Sodium 136 L (137-145) mmol/L Chloride 96 L (98-107) mmol/L BUN 92 H (9-20) mg/dL Creatinine 3.05 H (0.66-1.25) mg/dL Glucose 133 H (74-99) mg/dL POC Glucose (mg/dL) 274 H 257 H (75-99) mg/dL Calcium 8.0 L (8.4-10.2) mg/dL 09/08/21 09/08/21 Range/Units 06:12 11:48 Sodium (137-145) mmol/L Chloride (98-107) mmol/L BUN (9-20) mg/dL Creatinine (0.66-1.25) mg/dL Glucose (74-99) mg/dL POC Glucose (mg/dL) 127 H 308 H (75-99) mg/dL Calcium (8.4-10.2) mg/dL Assessment and Plan Assessment: Assessment #1 acute exacerbation of heart failure with reduced ejection fraction #2 acute coronary syndrome #3 severe CAD and status post CABG #4 severe cardiomyopathy and status post AICD #5 acute on chronic renal failure Plan #1 DC IV Lasix and start the patient on by mouth Lasix #2 continue dual antiplatelet therapy and high intensity statin #3 discharged home in the next 12 hours to 24 hours
--- NOTE | 2021-09-08 15:22 | P.PN ---
Progress Note - Text Progress Note Date: 09/08/21 Chief Complaint: Short of breath This is a pleasant 70-year-old patient was chronic stable medical conditions include diabetes, peptic ulcer disease, unilateral right kidney, gout, CAD with a bypass, AICD. Has known underlying ischemic cardiomyopathy. Patient presente d increasing shortness of breath through the previous night. Some chest pressure. Slight perspiration. Minimal cough. No fever no chills. No lower extremity swelling. Presents to the ER. Admitted with acute non-Q-wave MO, acute on chronic congestive heart exacerbation, acute hypoxic respiratory failure. Metabolic acidosis. Hyperkalemia. Treated with BiPAP, IV Lasix, bicarb Kayexalate. 09/05/2021: Sitting up in bed. Short of breath. On nasal cannula. Tired. No chest pain. 09/06/2021: Sitting at the age of the bed. Breathing better. Decreased appetite. Nasal cannula. On IV Lasix. 09/07/2021: Sitting up. Diet. Decrease appetite. Concerned about his overall condition. Some shortness of breath. On IV Lasix. 09/08/2021. Patient is long discussion with Dr. Arroyo from nephrology. Appetite a bit better today. I discussed with Dr. Arroyo. Lasix 40 mg IV daily. Creatinine has bumped up. To be discharged on 40 mg twice a day. Hopefully tomorrow. Increase activity. Review of systems: Was done for constitutional, cardiovascular, GI, pulmonary. relevant finding as above Active Medications Allopurinol (Allopurinol 100 Mg Tab) 100 mg PO DAILY [facility] Last Admin: 09/08/21 07:51 Dose: 100 mg Documented by: Aspirin (Aspirin 81 Mg) 81 mg PO DAILY [facility] Last Admin: 09/08/21 07:51 Dose: 81 mg Documented by: Atorvastatin Calcium (Atorvastatin 80 Mg Tab) 80 mg PO HS [facility] Last Admin: 09/07/21 20:58 Dose: 80 mg Documented by: Carvedilol (Carvedilol 12.5 Mg Tab) 12.5 mg PO BID-W/MEALS [facility] Last Admin: 09/08/21 06:16 Dose: 12.5 mg Documented by: Clopidogrel Bisulfate (Clopidogrel 75 Mg Tab) 75 mg PO DAILY [facility] Last Admin: 09/08/21 07:51 Dose: 75 mg Documented by: Furosemide (Furosemide 10 Mg/Ml 4 Ml Vial) 40 mg IV DAILY [facility] Last Admin: 09/08/21 13:07 Dose: 40 mg Documented by: Insulin Aspart (Insulin Aspart (Novolog) 100 Unit/Ml Vial) 0 unit SQ ACHS [facility]; Protocol Last Admin: 09/08/21 12:37 Dose: 5 unit Documented by: Miscellaneous Information (Potassium Replacement Protocol 1 Each Misc) 1 each MISCELLANE DAILY PRN; Protocol PRN Reason: Per Protocol Pantoprazole Sodium (Pantoprazole 40 Mg Tablet) 40 mg PO BID [facility] Last Admin: 09/08/21 07:51 Dose: 40 mg Documented by: Past medical history to include: Diabetes mellitus type 2, COPD, AICD, peptic ulcer disease, unilateral right kidney, gout, CAD with a bypass Family history: Breast cancer, hypertension Social history: No history of smoking or alcohol. Physical examination: VITAL SIGNS: 98, 86, 18, 95/55, 94% room air GENERAL: Sitting, breathing better EYES: Pupils equal. Conjunctiva normal. HEENT: External appearance of nose and ears normal, oral cavity grossly normal. NECK: JVD unable to assess; masses not palpable. HEART: First and second heart sounds are normal; edema present LUNGS: Respiratory rate increased, diminished breath sounds ABDOMEN: Soft, nontender, liver spleen not palpable, no masses palpable. PSYCH: [Alert and oriented x3; mood and affect normal. INVESTIGATIONS, reviewed in the clinical context: September 08: Potassium 4 BUN 92 creatinine 3.05 September 06 was: Potassium 3.4 BUN 76 creatinine 2.55 September 06: Potassium 5 BUN 71 and creatinine 2.21 WBC 7.7 hemoglobin 9.2 September 05: Potassium 5 bicarb 17 BUN 65 creatinine 2.17 troponin I 8.8 Renal ultrasound: Right renal cortical cyst. No hydronephrosis. Right kidney is enlarged. Nonobstructing small renal calculus. Left kidney not seen. WBC 11.2 hemoglobin 10.9 platelets 347 sodium 140 potassium 7.5/6.1 BUN 60 creatinine 2.06 Troponin I 0.414, 3.4, 90.9 ProBNP 61424 EKG tracing personally reviewed by me-atrial sensed ventricular paced rhythm. Chest x-ray film personally reviewed by me-pulmonary edema Previous labs: [May 2021]: BUN 53 creatinine 2.5 Assessment and plan: -Acute non-Q wave myocardial infarction Lipitor, Coreg, aspirin. Plavix -Acute on chronic congestive heart failure exacerbation: Better Back Lasix to IV 40 mg daily -Biventricular AICD -Chronic kidney disease stage IV from diabetic nephropathy and hypertensive nephrosclerosis Follow renal function -Acute kidney injury possibly ATN from cardiorenal syndrome For labs closely with nephrology. -Severe hyperkalemia in the setting of CK D.: Better Hold Cozaar. Sodium bicarb. Dextrose. Insulin. Kayexalate. -Unilateral right kidney -Chronic gout Continue allopurinol -Acute hypoxic respiratory failure from pulmonary edema: Better BiPAP. Now on 3 L nasal cannula -Acute metabolic acidosis from renal failure.: Slow to respond Bicarbonate drip -CAD with a prior history of coronary bypass Coreg. Plavix. Aspirin. -Peptic ulcer disease PPI. -Diabetes mellitus type 2 on oral hypoglycemic. Uncontrolled with hyperglycemia. Follow Accu-Cheks and sliding scale insulin. Levemir 14 units subcu daily at bedtime. Januvia 50 mg daily. That back Lasix to 40 mg IV daily. Add Januvia 50 mg daily. Care was discussed with the patient. Repeat labs in the morning.
[2021-09-08 16:51] LABS: Glucose,Whole Blood 269 mg/dL (75-99)
[2021-09-08] MEDS: LINAGLIPTIN 5 MG TABLET PO SCH (17:34)
--- NOTE | 2021-09-08 19:29 | PN ---
PROGRESS NOTE Patient is seen for followup for acute kidney injury. He was admitted to the hospital with weakness and found to have hyperkalemia and metabolic acidosis. Patient was initially maintained on IV fluids and he is currently hypervolemic and being diuresed. Serum creatinine has increased to 3.0 today. Patient's blood pressure has been borderline. He was started on Cozaar yesterday, and this was discontinued today. Patient states that he has been voiding fairly well. Ultrasound of the kidneys done on initial admission did not reveal any evidence of hydronephrosis. Patient has a solitary kidney, which is his right kidney. The left kidney was not visualized. On examination today, blood pressure 102/63; later on earlier this morning, 95/55, heart rate 86 per minute. He is afebrile. EXAMINATION OF THE HEART: S1 and S2. EXAMINATION OF LUNGS: Bilateral breath sounds are heard. Abdomen is soft, non-tender. Examination of lower extremities shows edema 2+ bilaterally. [employer] EXAM: Grossly intact. Labs show sodium 136, potassium 4.0, chloride 96, BUN 92, serum creatinine 3.05. ASSESSMENT: 1. Acute kidney injury, cardiorenal, and worsened secondary to hypotension in the setting of use of angiotensin receptor blockers. Serum creatinine jumped significantly with a single dose of Cozaar. I will discontinue the Cozaar for now. Patient is hypervolemic. He will be maintained on diuretics and we will repeat his labs again in a.m. Continue to avoid any other nephrotoxic medications and consider decreasing dose of Coreg. 2. Metabolic acidosis, status post bicarb drip, and improved. Patient had been on metformin prior to admission. This may have contributed to his lactic acidosis. 3. Hyperkalemia associated with acute kidney injury, increased potassium intake in diet and use of angiotensin receptor blockers, now improved. 4. Chronic kidney disease, stage 4. Baseline creatinine 1.9 to 2 secondary to nephrosclerosis, cardiorenal syndrome and solitary kidney. No evidence of proteinuria on UA. 5. Acute [id number] myocardial infarction, being followed by Cardiology, maintained on aspirin, Plavix and beta blockers. 6. Solitary kidney. Left kidney was not visualized. Right kidney is slightly larger at 14.9 cm. No hydronephrosis. 7. Hypomagnesemia, status post replacement. PLAN: Decrease Lasix. Discontinue Cozaar. Repeat labs in a.m. Possible discharge tomorrow as long as renal function is not further worsened. MMODL / IJN: [id number] /
[2021-09-08 20:46] LABS: Glucose,Whole Blood 251 mg/dL (75-99)
[2021-09-08] MEDS: ATORVASTATIN 80 MG TAB PO SCH (21:33)
[2021-09-08] MEDS: INSULIN DETEMIR (LEVEMIR) 100 UNIT/ML SYR SQ SCH (21:34)
[2021-09-09] MEDS: carvediloL 12.5 MG TAB PO SCH (05:54)
[2021-09-09 06:20] LABS: Glucose,Whole Blood 140 mg/dL (75-99)
[2021-09-09] MEDS: INSULIN ASPART (NovoLOG) 100 UNIT/ML VIAL SQ SCH ×4 (06:23→21:28)
--- NOTE | 2021-09-09 07:50 | P.PN ---
Subjective Progress Note Date: 09/09/21 Principal diagnosis: Acute coronary syndrome The patient is a pleasant 70-year-old gentleman with a past medical history significant for coronary artery disease and prior revascularization as well as ischemic cardiomyopathy and status post AICD as well as chronic kidney disease and multiple comorbid conditions was admitted to the hospital with heart failure exacerbation secondary to systolic dysfunction with acute coronary syndrome. The patient was seen this morning. He is feeling slightly better indeterminable shortness of breath. He has no chest pain or chest discomfort. He was started on Lasix by mouth yesterday but that was stopped and he was placed on Lasix IV b y the nephrology service. The patient would like to go home. Blood work is not back to check his creatinine this morning. Objective - Vital Signs Vital signs: Vital Signs Temp 98.5 F 09/09/21 04:00 Pulse 82 09/09/21 04:00 Resp 20 09/09/21 04:00 BP 108/64 09/09/21 04:00 Pulse Ox 100 09/09/21 04:00 Intake & Output 09/08/21 09/09/21 09/09/21 18:59 06:59 18:59 Intake Total 1440 Balance 1440 Weight 68 kg Intake: Oral 1440 Other: Voiding Method Urinal # Voids 1 - Constitutional General appearance: Present: no acute distress - Respiratory Respiratory: bilateral: diminished - Cardiovascular Rhythm: regular Heart sounds: normal: S1, S2 - Labs CBC & Chem 7: 09/06/21 13:00 09/08/21 06:04 Labs: Abnormal Lab Results - Last 24 Hours (Table) 09/08/21 09/08/21 09/08/21 Range/Units 11:48 16:48 20:40 POC Glucose (mg/dL) 308 H 269 H 251 H (75-99) mg/dL 09/09/21 Range/Units 06:09 POC Glucose (mg/dL) 140 H (75-99) mg/dL Assessment and Plan Assessment: Assessment #1 acute exacerbation of heart failure with reduced ejection fraction #2 acute coronary syndrome #3 severe CAD and status post CABG #4 severe cardiomyopathy and status post AICD #5 acute on chronic renal failure Plan #1 continue the current medical regimen #2 continue dual antiplatelet therapy and high intensity statin #3 discharged home in the next 12 hours to 24 hours
[2021-09-09 08:24] LABS: Calcium 7.7 mg/dL (8.4-10.2); Potassium 4.1 mmol/L (3.5-5.1)
[2021-09-09] MEDS: allopurinoL 100 MG TAB PO SCH (08:25)
[2021-09-09] MEDS: FUROSEMIDE 10 MG/ML 4 ML VIAL IV SCH (08:25)
[2021-09-09] MEDS: PANTOPRAZOLE 40 MG TABLET PO SCH ×2 (08:25→20:03)
[2021-09-09] MEDS: ASPIRIN 81 MG PO SCH (08:25)
[2021-09-09] MEDS: LINAGLIPTIN 5 MG TABLET PO SCH (08:25)
[2021-09-09] MEDS: CLOPIDOGREL 75 MG TAB PO SCH (08:25)
[2021-09-09] MEDS ORDERED: LOSARTAN 25 MG TAB PO SCH (09:00)
[2021-09-09] MEDS ORDERED: FUROSEMIDE 40 MG TAB PO SCH (09:00)
[2021-09-09 11:34] LABS: Glucose,Whole Blood 288 mg/dL (75-99)
[2021-09-09] MEDS ORDERED: SODIUM CHLORIDE 0.9% 1,000 ML IV SCH (14:30)
[2021-09-09] MEDS ORDERED: SODIUM CHLORIDE 0.9% 500 ML 500 ML IV ONE (14:31)
--- NOTE | 2021-09-09 14:37 | P.PN ---
Subjective Progress Note Date: 09/09/21 Follow-up for acute kidney injury. No nausea vomiting diarrhea. Denies any chest pain shortness of breath. Objective - Vital Signs Vital signs: Vital Signs Temp 97.7 F 09/09/21 11:35 Pulse 73 09/09/21 11:35 Resp 16 09/09/21 11:35 BP 94/60 09/09/21 11:35 Pulse Ox 96 09/09/21 11:35 Intake & Output 09/08/21 09/09/21 09/09/21 18:59 06:59 18:59 Intake Total 1440 300 Output Total 100 Balance 1440 200 Weight 68 kg Intake: Oral 1440 300 Output: Urine 100 Other: Voiding Method Urinal Urinal # Voids 1 - Exam No acute distress S1-S2 heard Decreased breath sounds Edema - Labs CBC & Chem 7: 09/06/21 13:00 09/09/21 07:04 Labs: Abnormal Lab Results - Last 24 Hours (Table) 09/08/21 09/08/21 09/09/21 Range/Units 16:48 20:40 06:09 Sodium (137-145) mmol/L Chloride (98-107) mmol/L BUN (9-20) mg/dL Creatinine (0.66-1.25) mg/dL Glucose (74-99) mg/dL POC Glucose (mg/dL) 269 H 251 H 140 H (75-99) mg/dL Calcium (8.4-10.2) mg/dL 09/09/21 09/09/21 Range/Units 07:04 11:32 Sodium 133 L (137-145) mmol/L Chloride 93 L (98-107) mmol/L BUN 105 H* (9-20) mg/dL Creatinine 3.95 H (0.66-1.25) mg/dL Glucose 129 H (74-99) mg/dL POC Glucose (mg/dL) 288 H (75-99) mg/dL Calcium 7.7 L (8.4-10.2) mg/dL Assessment and Plan Assessment: #1 acute kidney injury suspect hemodynamic ATN with low blood pressures. -CRS is a possibility with low blood pressures. #2 CK D stage IV secondary to nephrosclerosis/solitary kidney with a baseline creatinine of 1.9-2.0 MG per DL. #3 CHF with systolic dysfunction #4 solitary kidney with no hydronephrosis on recent scan #5 hypotensive episodes Plan: #1 decrease carvedilol to 3.125 mg twice a day. #2 add midodrine 5 mg 3 times a day for hemodynamic support #3 500 ML's normal saline bolus. Check bladder scan to rule out urinary retention #4 check urine analysis and urine electrolytes. #5 avoid nephrotoxic agents and hypotensive episodes. #6 repeat labs in the morning
--- NOTE | 2021-09-09 15:15 | P.PN ---
Progress Note - Text Progress Note Date: 09/09/21 Chief Complaint: Short of breath This is a pleasant 70-year-old patient was chronic stable medical conditions include diabetes, peptic ulcer disease, unilateral right kidney, gout, CAD with a bypass, AICD. Has known underlying ischemic cardiomyopathy. Patient presente d increasing shortness of breath through the previous night. Some chest pressure. Slight perspiration. Minimal cough. No fever no chills. No lower extremity swelling. Presents to the ER. Admitted with acute non-Q-wave AR, acute on chronic congestive heart exacerbation, acute hypoxic respiratory failure. Metabolic acidosis. Hyperkalemia. Treated with BiPAP, IV Lasix, bicarb Kayexalate. 09/05/2021: Sitting up in bed. Short of breath. On nasal cannula. Tired. No chest pain. 09/06/2021: Sitting at the age of the bed. Breathing better. Decreased appetite. Nasal cannula. On IV Lasix. 09/07/2021: Sitting up. Diet. Decrease appetite. Concerned about his overall condition. Some shortness of breath. On IV Lasix. 09/08/2021. Patient is long discussion with Dr. Arroyo from nephrology. Appetite a bit better today. I discussed with Dr. Arroyo. Lasix 40 mg IV daily. Creatinine has bumped up. To be discharged on 40 mg twice a day. Hopefully tomorrow. Increase activity. 09/09/2021: Patient was hypotensive this morning. Systolic blood pressures in the 90s. Creatinine has gone up. Did receive his Lasix this morning. Given 500 mL bolus by nephrology. I have held IV Lasix. Does of Coreg cutback. Discussed with the patient. Also with nephrology. Review of systems: Was done for constitutional, cardiovascular, GI, pulmonary. relevant finding as above Active Medications Allopurinol (Allopurinol 100 Mg Tab) 100 mg PO DAILY [facility] Last Admin: 09/09/21 08:25 Dose: 100 mg Documented by: Aspirin (Aspirin 81 Mg) 81 mg PO DAILY [facility] Last Admin: 09/09/21 08:25 Dose: 81 mg Documented by: Atorvastatin Calcium (Atorvastatin 80 Mg Tab) 80 mg PO HS [facility] Last Admin: 09/08/21 21:33 Dose: 80 mg Documented by: Carvedilol (Carvedilol 3.125 Mg Tab) 3.125 mg PO BID-W/MEALS [facility] Clopidogrel Bisulfate (Clopidogrel 75 Mg Tab) 75 mg PO DAILY [facility] Last Admin: 09/09/21 08:25 Dose: 75 mg Documented by: Insulin Aspart (Insulin Aspart (Novolog) 100 Unit/Ml Vial) 0 unit SQ ACHS [facility]; Protocol Last Admin: 09/09/21 12:00 Dose: 5 unit Documented by: Insulin Detemir (Insulin Detemir (Levemir) 100 Unit/Ml Syr) 14 unit SQ HS [facility] Last Admin: 09/08/21 21:34 Dose: 14 unit Documented by: Linagliptin (Linagliptin 5 Mg Tablet) 5 mg PO DAILY [facility] Last Admin: 09/09/21 08:25 Dose: 5 mg Documented by: Miscellaneous Information (Potassium Replacement Protocol 1 Each Misc) 1 each MISCELLANE DAILY PRN; Protocol PRN Reason: Per Protocol Pantoprazole Sodium (Pantoprazole 40 Mg Tablet) 40 mg PO BID [facility] Last Admin: 09/09/21 08:25 Dose: 40 mg Documented by: Past medical history to include: Diabetes mellitus type 2, COPD, AICD, peptic ulcer disease, unilateral right kidney, gout, CAD with a bypass Family history: Breast cancer, hypertension Social history: No history of smoking or alcohol. Physical examination: VITAL SIGNS: 97.7, 73, 16, 94/60, 96% room air GENERAL: Declining, breathing okay EYES: Pupils equal. Conjunctiva normal. HEENT: External appearance of nose and ears normal, oral cavity grossly normal. NECK: JVD unable to assess; masses not palpable. HEART: First and second heart sounds are normal; edema present LUNGS: Respiratory rate increased, diminished breath sounds ABDOMEN: Soft, nontender, liver spleen not palpable, no masses palpable. PSYCH: [Alert and oriented x3; mood and affect normal. INVESTIGATIONS, reviewed in the clinical context: September 09: Sodium 133 potassium 4.1 BUN 105 creatinine 3.95 September 08: Potassium 4 BUN 92 creatinine 3.05 September 06 was: Potassium 3.4 BUN 76 creatinine 2.55 September 06: Potassium 5 BUN 71 and creatinine 2.21 WBC 7.7 hemoglobin 9.2 September 05: Potassium 5 bicarb 17 BUN 65 creatinine 2.17 troponin I 8.8 Renal ultrasound: Right renal cortical cyst. No hydronephrosis. Right kidney is enlarged. Nonobstructing small renal calculus. Left kidney not seen. WBC 11.2 hemoglobin 10.9 platelets 347 sodium 140 potassium 7.5/6.1 BUN 60 creatinine 2.06 Troponin I 0.414, 3.4, 90.9 ProBNP 75331 EKG tracing personally reviewed by me-atrial sensed ventricular paced rhythm. Chest x-ray film personally reviewed by me-pulmonary edema Previous labs: [May 2021]: BUN 53 creatinine 2.5 Assessment and plan: -Acute non-Q wave myocardial infarction Lipitor, Coreg, aspirin. Plavix -Acute on chronic congestive heart failure exacerbation: Better Hold Lasix -Biventricular AICD -Chronic kidney disease stage IV from diabetic nephropathy and hypertensive nephrosclerosis Follow renal function -Acute kidney injury possibly ATN from cardiorenal syndrome: Worsening. For labs closely with nephrology. -Severe hyperkalemia in the setting of CK D.: Better Hold Cozaar. Sodium bicarb. Dextrose. Insulin. Kayexalate. -Unilateral right kidney -Chronic gout Continue allopurinol -Hypotension, possibly overdiuresis: New diagnosis Fluid bolus -Acute hypoxic respiratory failure from pulmonary edema: Better BiPAP. Now on 3 L nasal cannula -Acute metabolic acidosis from renal failure.: Slow to respond Bicarbonate drip -CAD with a prior history of coronary bypass Coreg. Plavix. Aspirin. -Peptic ulcer disease PPI. -Diabetes mellitus type 2 on oral hypoglycemic. Uncontrolled with hyperglycemia. Follow Accu-Cheks and sliding scale insulin. Levemir 14 units subcu daily at bedtime. Januvia 50 mg daily. Hold Lasix. Fluid bolus given. Follow labs. Discussed with the patient and nephrology. Prognosis guarded.
[2021-09-09 16:25] LABS: Glucose,Whole Blood 274 mg/dL (75-99)
[2021-09-09] MEDS: ATORVASTATIN 80 MG TAB PO SCH (20:03)
[2021-09-09 20:07] LABS: Glucose,Whole Blood 207 mg/dL (75-99)
[2021-09-09] MEDS: INSULIN DETEMIR (LEVEMIR) 100 UNIT/ML SYR SQ SCH (21:29)
[2021-09-09 21:50] LABS: Amorphous Sediment,Urine Rare /hpf; Appearance,Urine Clear (Clear); Bilirubin,Urine Negative (Negative); Blood,Urine Negative (Negative); Color,Urine Yellow; Glucose,Urine (UA) Negative (Negative); Hyaline Casts,Urine 22 /lpf (0-2); Ketones,Urine Negative (Negative); Leukocyte Esterase,Urine Negative (Negative); Mucus,Urine Rare /hpf; Nitrite,Urine Negative (Negative); Protein,Urine 1+ (Negative); Specific Gravity,Urine 1.014 (1.001-1.035); Squamous Epithelial Cell,Urine <1 /hpf (0-4); Urobilinogen,Urine <2.0 mg/dL (<2.0); WBC,Urine 3 /hpf (0-5)
[2021-09-10] MEDS: INSULIN ASPART (NovoLOG) 100 UNIT/ML VIAL SQ SCH ×4 (06:02→20:08)
[2021-09-10] MEDS: carvediloL 3.125 MG TAB PO SCH ×2 (06:03→17:02)
[2021-09-10 06:04] LABS: Glucose,Whole Blood 131 mg/dL (75-99)
--- NOTE | 2021-09-10 09:27 | P.PN ---
Subjective Progress Note Date: 09/10/21 Follow-up for acute kidney injury. No nausea vomiting diarrhea. Denies any chest pain shortness of breath. Edema in the upper extremities. Objective - Vital Signs Vital signs: Vital Signs Temp 98.1 F 09/10/21 04:00 Pulse 98 09/10/21 04:00 Resp 20 09/10/21 04:00 BP 108/68 09/10/21 04:00 Pulse Ox 91 L 09/10/21 04:00 Intake & Output 09/09/21 09/10/21 09/10/21 18:59 06:59 18:59 Intake Total 420 Output Total 100 700 Balance 320 -700 Weight 68.6 kg Intake: Oral 420 Output: Urine 100 700 Other: Voiding Method Urinal Urinal # Voids 1 - Exam No acute distress S1-S2 heard Decreased breath sounds Edema - Labs CBC & Chem 7: 09/06/21 13:00 09/09/21 07:04 Labs: Abnormal Lab Results - Last 24 Hours (Table) 09/09/21 09/09/21 09/09/21 Range/Units 11:32 16:24 17:15 POC Glucose (mg/dL) 288 H 274 H (75-99) mg/dL Urine Protein 1+ H (Negative) Amorphous Sediment Rare H (None) /hpf Hyaline Casts 22 H (0-2) /lpf Urine Mucus Rare H (None) /hpf 09/09/21 09/10/21 Range/Units 20:06 06:01 POC Glucose (mg/dL) 207 H 131 H (75-99) mg/dL Urine Protein (Negative) Amorphous Sediment (None) /hpf Hyaline Casts (0-2) /lpf Urine Mucus (None) /hpf Assessment and Plan Assessment: #1 acute kidney injury suspect hemodynamic ATN with low blood pressures. -CRS is a possibility with low blood pressures. #2 CK D stage IV secondary to nephrosclerosis/solitary kidney with a baseline creatinine of 1.9-2.0 MG per DL. #3 CHF with systolic dysfunction #4 solitary kidney with no hydronephrosis on recent scan #5 hypotensive episodes Plan: #1 decreased carvedilol to 3.125 mg twice a day yesterday. #2 add torsemide 40 mg by mouth daily #3 follow-up on the labs. #4 avoid nephrotoxic agents and hypotensive episodes.
--- NOTE | 2021-09-10 09:45 | P.PN ---
Subjective Progress Note Date: 09/10/21 Principal diagnosis: Acute coronary syndrome The patient is a pleasant 70-year-old gentleman with a past medical history significant for coronary artery disease and prior revascularization as well as ischemic cardiomyopathy and status post AICD as well as chronic kidney disease and multiple comorbid conditions was admitted to the hospital with acute coronary syndrome and heart failure exacerbation secondary to systolic dysfunction. Because of his renal disease/chronic kidney disease as well as because of the absence of chest pain or chest discomfort we treated the acute c oronary syndrome medically. The patient was seen this morning. He stated that the shortness of breath is a slightly better. He continues to have orthopnea. He still have bilateral lower extremities edema. He was on Lasix yesterday which was held because of acute renal failure and he was started on Toresimide. Also the dose of carvedilol was decreased because of marginally low blood pressure. Clinically the patient reports no chest pain or chest discomfort. He would like to go home. On e xamination he does have diminished breathing sounds bilaterally with bilateral lower extremities edema noted as well. The echocardiogram showed severe cardiomyopathy with EF around 20% with moderate mitral regurgitation Objective - Vital Signs Vital signs: Vital Signs Temp 98.1 F 09/10/21 04:00 Pulse 98 09/10/21 04:00 Resp 20 09/10/21 04:00 BP 108/68 09/10/21 04:00 Pulse Ox 91 L 09/10/21 04:00 Intake & Output 09/09/21 09/10/21 09/10/21 18:59 06:59 18:59 Intake Total 420 180 Output Total 100 700 Balance 320 -700 180 Weight 68.6 kg Intake: Oral 420 180 Output: Urine 100 700 Other: Voiding Method Urinal Urinal # Voids 1 - Constitutional General appearance: Present: no acute distress - Respiratory Respiratory: bilateral: diminished - Cardiovascular Rhythm: regular Heart sounds: normal: S1, S2 Abnormal Heart Sounds: Present: systolic murmur - Labs CBC & Chem 7: 09/06/21 13:00 09/09/21 07:04 Labs: Abnormal Lab Results - Last 24 Hours (Table) 09/09/21 09/09/21 09/09/21 Range/Units 11:32 16:24 17:15 POC Glucose (mg/dL) 288 H 274 H (75-99) mg/dL Urine Protein 1+ H (Negative) Amorphous Sediment Rare H (None) /hpf Hyaline Casts 22 H (0-2) /lpf Urine Mucus Rare H (None) /hpf 09/09/21 09/10/21 Range/Units 20:06 06:01 POC Glucose (mg/dL) 207 H 131 H (75-99) mg/dL Urine Protein (Negative) Amorphous Sediment (None) /hpf Hyaline Casts (0-2) /lpf Urine Mucus (None) /hpf Assessment and Plan Assessment: Assessment #1 acute exacerbation of heart failure with reduced ejection fraction #2 acute coronary syndrome #3 severe CAD and status post CABG #4 severe cardiomyopathy and status post AICD #5 acute on chronic renal failure #6 valvular heart disease was moderate mitral regurgitation probably secondary to cardiomyopathy Plan #1 the patient was started on torsemide yesterday by the nephrology team #2 the dose of carvedilol was decreased as well #3 continue the rest of the current medical regimen #4 continue monitoring the kidney function and electrolytes #5 follow-up with the patient
[2021-09-10 09:54] LABS: Calcium 7.9 mg/dL (8.4-10.2)
[2021-09-10] MEDS: allopurinoL 100 MG TAB PO SCH (09:57)
[2021-09-10] MEDS: LINAGLIPTIN 5 MG TABLET PO SCH (09:57)
[2021-09-10] MEDS: ASPIRIN 81 MG PO SCH (09:57)
[2021-09-10] MEDS: CLOPIDOGREL 75 MG TAB PO SCH (09:57)
[2021-09-10] MEDS: PANTOPRAZOLE 40 MG TABLET PO SCH ×2 (09:57→20:08)
[2021-09-10] MEDS: TORSEMIDE 20 MG TAB PO SCH (09:59)
[2021-09-10 11:41] LABS: Glucose,Whole Blood 218 mg/dL (75-99)
[2021-09-10 16:50] LABS: Glucose,Whole Blood 281 mg/dL (75-99)
--- NOTE | 2021-09-10 18:27 | P.PN ---
Progress Note - Text Progress Note Date: 09/10/21 Chief Complaint: Short of breath This is a pleasant 70-year-old patient was chronic stable medical conditions include diabetes, peptic ulcer disease, unilateral right kidney, gout, CAD with a bypass, AICD. Has known underlying ischemic cardiomyopathy. Patient presente d increasing shortness of breath through the previous night. Some chest pressure. Slight perspiration. Minimal cough. No fever no chills. No lower extremity swelling. Presents to the ER. Admitted with acute non-Q-wave OH, acute on chronic congestive heart exacerbation, acute hypoxic respiratory failure. Metabolic acidosis. Hyperkalemia. Treated with BiPAP, IV Lasix, bicarb Kayexalate. 09/05/2021: Sitting up in bed. Short of breath. On nasal cannula. Tired. No chest pain. 09/06/2021: Sitting at the age of the bed. Breathing better. Decreased appetite. Nasal cannula. On IV Lasix. 09/07/2021: Sitting up. Diet. Decrease appetite. Concerned about his overall condition. Some shortness of breath. On IV Lasix. 09/08/2021. Patient is long discussion with Dr. Arroyo from nephrology. Appetite a bit better today. I discussed with Dr. Arroyo. Lasix 40 mg IV daily. Creatinine has bumped up. To be discharged on 40 mg twice a day. Hopefully tomorrow. Increase activity. 09/09/2021: Patient was hypotensive this morning. Systolic blood pressures in the 90s. Creatinine has gone up. Did receive his Lasix this morning. Given 500 mL bolus by nephrology. I have held IV Lasix. Does of Coreg cutback. Discussed with the patient. Also with nephrology. 09/10/2021: Blood pressure bit better this morning. A bit tired. Creatinine up a bit more. Torsemide 40 mg by mouth added daily by nephrology. Discussed with the patient. Follow Review of systems: Was done for constitutional, cardiovascular, GI, pulmonary. relevant finding as above Active Medications Allopurinol (Allopurinol 100 Mg Tab) 100 mg PO DAILY [facility] Last Admin: 09/10/21 09:57 Dose: 100 mg Documented by: Aspirin (Aspirin 81 Mg) 81 mg PO DAILY [facility] Last Admin: 09/10/21 09:57 Dose: 81 mg Documented by: Atorvastatin Calcium (Atorvastatin 80 Mg Tab) 80 mg PO HS [facility] Last Admin: 09/09/21 20:03 Dose: 80 mg Documented by: Carvedilol (Carvedilol 3.125 Mg Tab) 3.125 mg PO BID-W/MEALS [facility] Last Admin: 09/10/21 17:02 Dose: 3.125 mg Documented by: Clopidogrel Bisulfate (Clopidogrel 75 Mg Tab) 75 mg PO DAILY [facility] Last Admin: 09/10/21 09:57 Dose: 75 mg Documented by: Insulin Aspart (Insulin Aspart (Novolog) 100 Unit/Ml Vial) 0 unit SQ [facility]; Protocol Last Admin: 09/10/21 17:01 Dose: 4 unit Documented by: Insulin Detemir (Insulin Detemir (Levemir) 100 Unit/Ml Syr) 14 unit SQ [facility] Last Admin: 09/09/21 21:29 Dose: 14 unit Documented by: Linagliptin (Linagliptin 5 Mg Tablet) 5 mg PO DAILY [facility] Last Admin: 09/10/21 09:57 Dose: 5 mg Documented by: Miscellaneous Information (Potassium Replacement Protocol 1 Each Misc) 1 each MISCELLANE DAILY PRN; Protocol PRN Reason: Per Protocol Pantoprazole Sodium (Pantoprazole 40 Mg Tablet) 40 mg PO BID [facility] Last Admin: 09/10/21 09:57 Dose: 40 mg Documented by: Torsemide (Torsemide 20 Mg Tab) 40 mg PO DAILY [facility] Last Admin: 09/10/21 09:59 Dose: 40 mg Documented by: Past medical history to include: Diabetes mellitus type 2, COPD, AICD, peptic ulcer disease, unilateral right kidney, gout, CAD with a bypass Family history: Breast cancer, hypertension Social history: No history of smoking or alcohol. Physical examination: VITAL SIGNS: 97.9, 78, 16, 104/66, 93% room air GENERAL: Sitting up, breathing okay EYES: Pupils equal. Conjunctiva normal. HEENT: External appearance of nose and ears normal, oral cavity grossly normal. NECK: JVD unable to assess; masses not palpable. HEART: First and second heart sounds are normal; edema present LUNGS: Respiratory rate increased, diminished breath sounds ABDOMEN: Soft, nontender, liver spleen not palpable, no masses palpable. PSYCH: [Alert and oriented x3; mood and affect normal. INVESTIGATIONS, reviewed in the clinical context: September 10: Sodium 133 potassium 4 BUN 114 creatinine 4.15 September 05: Potassium 5 bicarb 17 BUN 65 creatinine 2.17 troponin I 8.8 Renal ultrasound: Right renal cortical cyst. No hydronephrosis. Right kidney is enlarged. Nonobstructing small renal calculus. Left kidney not seen. WBC 11.2 hemoglobin 10.9 platelets 347 sodium 140 potassium 7.5/6.1 BUN 60 creatinine 2.06 Troponin I 0.414, 3.4, 90.9 ProBNP 57263 EKG tracing personally reviewed by me-atrial sensed ventricular paced rhythm. Chest x-ray film personally reviewed by me-pulmonary edema Previous labs: [May 2021]: BUN 53 creatinine 2.5 Assessment and plan: -Acute non-Q wave myocardial infarction Lipitor, Coreg, aspirin. Plavix -Acute on chronic congestive heart failure exacerbation: Better DC Lasix. Started on Demadex 40 mg daily by nephrology today -Biventricular AICD -Chronic kidney disease stage IV from diabetic nephropathy and hypertensive nephrosclerosis Follow renal function -Acute kidney injury possibly ATN from cardiorenal syndrome: Worsening. Admission creatinine 2.16 Creatinine 4.15 -Severe hyperkalemia in the setting of CK D.: Better Hold Cozaar. Sodium bicarb. Dextrose. Insulin. Kayexalate. -Unilateral right kidney -Chronic gout Continue allopurinol -Hypotension, possibly overdiuresis: New diagnosis Fluid bolus -Acute hypoxic respiratory failure from pulmonary edema: Better BiPAP. Now on 3 L nasal cannula -Acute metabolic acidosis from renal failure.: Slow to respond Bicarbonate drip -CAD with a prior history of coronary bypass Coreg. Plavix. Aspirin. -Peptic ulcer disease PPI. -Diabetes mellitus type 2 on oral hypoglycemic. Uncontrolled with hyperglycemia. Follow Accu-Cheks and sliding scale insulin. Levemir 14 units subcu daily at bedtime. Januvia 50 mg daily. Torsemide abdomen nephrology. Follow I's and O's. Renal function closely. Discussed with the patient. Continue other medications.
[2021-09-10 19:53] LABS: Glucose,Whole Blood 292 mg/dL (75-99)
[2021-09-10] MEDS: INSULIN DETEMIR (LEVEMIR) 100 UNIT/ML SYR SQ SCH (20:08)
[2021-09-10] MEDS: ATORVASTATIN 80 MG TAB PO SCH (20:08)
[2021-09-11] MEDS: carvediloL 3.125 MG TAB PO SCH ×2 (06:27→17:27)
[2021-09-11] MEDS: INSULIN ASPART (NovoLOG) 100 UNIT/ML VIAL SQ SCH ×4 (06:27→20:27)
[2021-09-11 06:35] LABS: Glucose,Whole Blood 178 mg/dL (75-99)
[2021-09-11] MEDS: CLOPIDOGREL 75 MG TAB PO SCH (08:54)
[2021-09-11] MEDS: LINAGLIPTIN 5 MG TABLET PO SCH (08:54)
[2021-09-11] MEDS: PANTOPRAZOLE 40 MG TABLET PO SCH ×2 (08:54→20:26)
[2021-09-11] MEDS: TORSEMIDE 20 MG TAB PO SCH (08:54)
[2021-09-11] MEDS: allopurinoL 100 MG TAB PO SCH (08:54)
[2021-09-11] MEDS: ASPIRIN 81 MG PO SCH (08:54)
[2021-09-11 09:06] LABS: Calcium 8.5 mg/dL (8.4-10.2); Magnesium 1.6 mg/dL (1.6-2.3); Potassium 4.4 mmol/L (3.5-5.1)
[2021-09-11 11:33] LABS: Glucose,Whole Blood 181 mg/dL (75-99)
--- NOTE | 2021-09-11 12:22 | P.PN ---
Subjective This is a pleasant 70-year-old male past medical history significant for type 2 diabetes, hypertension, dyslipidemia, coronary artery disease status post four- vessel CABG 2002 (LEWIS-LAD, VG-OM1, VG-OM2, VG-PDA), ischemic cardiomyopathy s/p ICD implantation 2018 at [facility], chronic kidney disease. He follows in the office with Dr. Michael. We have been asked to see in consultation for acute pulmonary edema and elevated troponin. Patient presents to the emergency department with worsening shortness of breath. He states he has been having s ymptoms of shortness of breath for a few months now. However, over the past couple days he been having worsening shortness of breath and dyspnea on exertion. Yesterday he states he had an episode of chest discomfort, describes it as a pressure. It was non-radiating, non-exertional. He called his sister, she noted him being diaphoretic. He also was very short of breath. He decided to present to the emergency department for further evaluation. He also endorses about 2lb weight gain. He has symptoms of orthopnea. He states he has been having difficulty sleeping due to shortness of breath. He denies nausea, vomiting, abdominal pain, fever or chills. He is a non-smoker. DIAGNOSTICS Echocardiogram revealed an EF of 2025 percent, moderate mitral regurgitation, mild tricuspid regurgitation. 09/11/21 Patient seen and examined at bedside, he states he "feels awful", he has symptoms of shortness of breath and orthopnea. He has edema in his bilateral upper and lower extremities. Patient with 800mL urine output documented over 24 hours. He is maintained on aspirin 81 daily, atorvastatin 80 mg nightly, Coreg 12.5 mg twice a day, PO Torsemide 40mg daily (changed per nephrology). Patient allergic to heparin. His renal function is worsening. Sodium 134, potassium 4.4, BUN 126, serum creatinine 4.14, magnesium 1.6 PHYSICAL EXAMINATION Blood pressure CONSTITUTIONAL: Short of breath HEENT: Neck Supple. Mild JVD. CHEST EXAMINATION: Lungs diminished bilaterally to auscultation HEART EXAMINATION: Regular rate and rhythm. S1, S2 heard. Systolic murmur at apex ABDOMEN: Soft, nontender. Positive bowel sounds. EXTREMITIES: 2+ peripheral pulses, bilateral lower extremity edema, 2+ bilateral upper extremity edema L >R and no calf tenderness. NEUROLOGIC EXAMINATION: Patient is awake, alert and oriented x3. ASSESSMENT Acute systolic heart failure NSTEMI Hyperkalemia Severe metabolic acidosis Acute on Chronic kidney disease Type 2 diabetes Hypertension Dyslipidemia Coronary artery disease status post four-vessel CABG 2002 (LEWIS-LAD, VG-OM1, VG- OM2, VG-PDA) Ischemic cardiomyopathy s/p ICD implantation 2019 PLAN Start Dobutamine 2.5mcg/kg/min Continue aspirin, plavix, statin, carvedilol Nephrology following, appreciate recommendations, managing diuretics Monitor I/Os, daily weights Monitor renal function and electrolytes Further recommendations based on clinical course Nurse Practitioner note has been reviewed, I agree with a documented findings and plan of care. Patient was seen and examined. Objective - Vital Signs Vital signs: Vital Signs Temp 97.4 F L 09/11/21 08:00 Pulse 92 09/11/21 08:00 Resp 16 09/11/21 04:00 BP 103/61 09/11/21 08:00 Pulse Ox 99 09/11/21 08:00 Intake & Output 09/10/21 09/11/21 09/11/21 18:59 06:59 18:59 Intake Total 660 240 180 Output Total 250 350 50 Balance 410 -110 130 Weight 69.1 kg Intake: Oral 660 240 180 Output: Urine 250 350 50 Other: Voiding Method Urinal Urinal # Voids 1 - Labs CBC & Chem 7: 09/06/21 13:00 09/11/21 08:17 Labs: Abnormal Lab Results - Last 24 Hours (Table) 09/09/21 09/10/21 09/10/21 Range/Units 17:15 16:48 19:52 Sodium (137-145) mmol/L Chloride (98-107) mmol/L Carbon Dioxide (22-30) mmol/L BUN (9-20) mg/dL Creatinine (0.66-1.25) mg/dL Glucose (74-99) mg/dL POC Glucose (mg/dL) 281 H 292 H (75-99) mg/dL Ur Random Sodium 27 L (40-220) mmol/L 09/11/21 09/11/21 09/11/21 Range/Units 05:56 08:17 11:31 Sodium 134 L (137-145) mmol/L Chloride 95 L (98-107) mmol/L Carbon Dioxide 21 L (22-30) mmol/L BUN 126 H* (9-20) mg/dL Creatinine 4.14 H (0.66-1.25) mg/dL Glucose 197 H (74-99) mg/dL POC Glucose (mg/dL) 178 H 181 H (75-99) mg/dL Ur Random Sodium (40-220) mmol/L
--- NOTE | 2021-09-11 12:26 | P.PN ---
Subjective Patient is seen in follow-up for acute kidney injury on chronic kidney disease. Renal function stable. Does feel dyspneic. On 2 L nasal cannula. No chest pain. Oral intake poor. Vital signs are stable. General: On nasal cannula. HEENT: Head exam is unremarkable. LUNGS: Breath sounds decreased. HEART: Rate and Rhythm are regular. ABDOMEN: Soft, no distention. EXTREMITITES: 1+ edema. Objective - Vital Signs Vital signs: Vital Signs Temp 97.4 F L 09/11/21 08:00 Pulse 92 09/11/21 08:00 Resp 16 09/11/21 04:00 BP 103/61 09/11/21 08:00 Pulse Ox 99 09/11/21 08:00 Intake & Output 09/10/21 09/11/21 09/11/21 18:59 06:59 18:59 Intake Total 660 240 180 Output Total 250 350 50 Balance 410 -110 130 Weight 69.1 kg Intake: Oral 660 240 180 Output: Urine 250 350 50 Other: Voiding Method Urinal Urinal # Voids 1 - Labs CBC & Chem 7: 09/06/21 13:00 09/11/21 08:17 Labs: Abnormal Lab Results - Last 24 Hours (Table) 09/09/21 09/10/21 09/10/21 Range/Units 17:15 16:48 19:52 Sodium (137-145) mmol/L Chloride (98-107) mmol/L Carbon Dioxide (22-30) mmol/L BUN (9-20) mg/dL Creatinine (0.66-1.25) mg/dL Glucose (74-99) mg/dL POC Glucose (mg/dL) 281 H 292 H (75-99) mg/dL Ur Random Sodium 27 L (40-220) mmol/L 09/11/21 09/11/21 09/11/21 Range/Units 05:56 08:17 11:31 Sodium 134 L (137-145) mmol/L Chloride 95 L (98-107) mmol/L Carbon Dioxide 21 L (22-30) mmol/L BUN 126 H* (9-20) mg/dL Creatinine 4.14 H (0.66-1.25) mg/dL Glucose 197 H (74-99) mg/dL POC Glucose (mg/dL) 178 H 181 H (75-99) mg/dL Ur Random Sodium (40-220) mmol/L Assessment and Plan Plan: Assessment: 1. Acute kidney injury secondary to ATN secondary to cardiorenal syndrome. Creatinine stable at 4.14 today. 2. Chronic kidney disease stage IV with baseline creatinine near 2 secondary to solitary right kidney and diabetic kidney disease. 3. Acute on chronic systolic CHF. 4. Volume overload. 5. Hypervolemic hyponatremia. 6. Diabetes mellitus. Plan: Dobutamine added by cardiology this morning. Stop oral torsemide and start Bumex drip. Check chest x-ray. Avoid nephrotoxins. Continue to monitor renal function and urine output. Discussed with the patient that if no improvement in his renal function and urine output in the next 24 hours, will initiate renal replacement therapy. He is in agreement. Case also discussed with the primary attending.
[2021-09-11] MEDS: BUMETANIDE 10 MG in DEXTROSE 5% IN WATER 60 ML IV SCH ×2 (14:46)
[2021-09-11] MEDS: DOBUTamine DRIP 500 MG in DEXTROSE/WATER 1 250ML.BAG IV SCH (14:47)
--- NOTE | 2021-09-11 15:31 | XR ---
EXAMINATION TYPE: XR chest 1V DATE OF EXAM: 09/11/2021 COMPARISON: Chest x-ray 09/07/2021 HISTORY: Shortness of breath TECHNIQUE: Single frontal view of the chest is obtained. FINDINGS: Patient is rotated. Generators present in the left pectoral region, there is a lead in the right atrium, right ventricle and coronary sinus. The heart is enlarged. Patient is post median ster notomy. The aorta is dense. Exam is expiratory. Bibasilar attenuation obscures the hemidiaphragms, th is blunting of the costophrenic angles. No evident pneumothorax. Central vascularity is prominent. Th ere may be some improvement in aeration. IMPRESSION: There is likely some improvement in patient's volume status, aeration, persistent basila r atelectasis versus edema and associated effusions. Cardiomegaly and postop changes. Correlate for p ulmonary artery hypertension.
[2021-09-11] MEDS ORDERED: ZOLPIDEM 5 MG TAB PO PRN (16:16)
[2021-09-11 16:35] LABS: Glucose,Whole Blood 255 mg/dL (75-99)
--- NOTE | 2021-09-11 18:53 | P.PN ---
Progress Note - Text Progress Note Date: 09/11/21 Chief Complaint: Short of breath This is a pleasant 70-year-old patient was chronic stable medical conditions include diabetes, peptic ulcer disease, unilateral right kidney, gout, CAD with a bypass, AICD. Has known underlying ischemic cardiomyopathy. Patient presente d increasing shortness of breath through the previous night. Some chest pressure. Slight perspiration. Minimal cough. No fever no chills. No lower extremity swelling. Presents to the ER. Admitted with acute non-Q-wave ND, acute on chronic congestive heart exacerbation, acute hypoxic respiratory failure. Metabolic acidosis. Hyperkalemia. Treated with BiPAP, IV Lasix, bicarb Kayexalate. 09/05/2021: Sitting up in bed. Short of breath. On nasal cannula. Tired. No chest pain. 09/06/2021: Sitting at the age of the bed. Breathing better. Decreased appetite. Nasal cannula. On IV Lasix. 09/07/2021: Sitting up. Diet. Decrease appetite. Concerned about his overall condition. Some shortness of breath. On IV Lasix. 09/08/2021. Patient is long discussion with Dr. Arroyo from nephrology. Appetite a bit better today. I discussed with Dr. Arroyo. Lasix 40 mg IV daily. Creatinine has bumped up. To be discharged on 40 mg twice a day. Hopefully tomorrow. Increase activity. 09/09/2021: Patient was hypotensive this morning. Systolic blood pressures in the 90s. Creatinine has gone up. Did receive his Lasix this morning. Given 500 mL bolus by nephrology. I have held IV Lasix. Does of Coreg cutback. Discussed with the patient. Also with nephrology. 09/10/2021: Blood pressure bit better this morning. A bit tired. Creatinine up a bit more. Torsemide 40 mg by mouth added daily by nephrology. Discussed with the patient. Follow 09/11/2021: Was seen renal function. Tired. Poor IV access. Midline ordered. Discussed with Dr. Martinez from nephrology. Dobutamine has been ordered by cardiology. Bumex 0.5 mg an hour drip to be started. Care was discussed with the patient and sister the bedside. If things don't improve may need renal replacement therapy. Review of systems: Was done for constitutional, cardiovascular, GI, pulmonary. relevant finding as above Active Medications Allopurinol (Allopurinol 100 Mg Tab) 100 mg PO DAILY [facility] Last Admin: 09/11/21 08:54 Dose: 100 mg Documented by: Aspirin (Aspirin 81 Mg) 81 mg PO DAILY [facility] Last Admin: 09/11/21 08:54 Dose: 81 mg Documented by: Atorvastatin Calcium (Atorvastatin 80 Mg Tab) 80 mg PO HS [facility] Last Admin: 09/10/21 20:08 Dose: 80 mg Documented by: Carvedilol (Carvedilol 3.125 Mg Tab) 3.125 mg PO BID-W/MEALS [facility] Last Admin: 09/11/21 17:27 Dose: 3.125 mg Documented by: Clopidogrel Bisulfate (Clopidogrel 75 Mg Tab) 75 mg PO DAILY [facility] Last Admin: 09/11/21 08:54 Dose: 75 mg Documented by: Dobutamine HCl/Dextrose 500 mg (/ IV Solution) 250 mls @ 5.183 mls/hr IV .Q24H [facility] Last Admin: 09/11/21 14:47 Dose: 2.5 mcg/kg/min, 5.183 mls/hr Documented by: Bumetanide 10 mg/ Dextrose/ (Water) 100 mls @ 5 mls/hr IV .Q20H [facility] Last Admin: 09/11/21 14:46 Dose: 0.5 mg/hr, 5 mls/hr Documented by: Insulin Aspart (Insulin Aspart (Novolog) 100 Unit/Ml Vial) 0 unit SQ [facility]; Protocol Last Admin: 09/11/21 17:27 Dose: 4 unit Documented by: Insulin Detemir (Insulin Detemir (Levemir) 100 Unit/Ml Syr) 14 unit SQ HS [facility] Last Admin: 09/10/21 20:08 Dose: 14 unit Documented by: Linagliptin (Linagliptin 5 Mg Tablet) 5 mg PO DAILY [facility] Last Admin: 09/11/21 08:54 Dose: 5 mg Documented by: Miscellaneous Information (Potassium Replacement Protocol 1 Each Misc) 1 each MISCELLANE DAILY PRN; Protocol PRN Reason: Per Protocol Pantoprazole Sodium (Pantoprazole 40 Mg Tablet) 40 mg PO BID [facility] Last Admin: 09/11/21 08:54 Dose: 40 mg Documented by: Zolpidem Tartrate (Zolpidem 5 Mg Tab) 2.5 mg PO HS PRN PRN Reason: sleep Past medical history to include: Diabetes mellitus type 2, COPD, AICD, peptic ulcer disease, unilateral right kidney, gout, CAD with a bypass Family history: Breast cancer, hypertension Social history: No history of smoking or alcohol. Physical examination: VITAL SIGNS: 97.4, 89, 16, 112/80, 98% on 2 L GENERAL: Sitting up, awake EYES: Pupils equal. Conjunctiva normal. HEENT: External appearance of nose and ears normal, oral cavity grossly normal. NECK: JVD unable to assess; masses not palpable. HEART: First and second heart sounds are normal; significant edema LUNGS: Respiratory rate increased, diminished breath sounds ABDOMEN: Soft, nontender, liver spleen not palpable, no masses palpable. PSYCH: [Alert and oriented x3; mood and affect anxious INVESTIGATIONS, reviewed in the clinical context: September 11: Sodium 134 potassium 4.4 bicarb 21 BUN 126 creatinine 4.14 September 10: Sodium 133 potassium 4 BUN 114 creatinine 4.15 September 05: Potassium 5 bicarb 17 BUN 65 creatinine 2.17 troponin I 8.8 Renal ultrasound: Right renal cortical cyst. No hydronephrosis. Right kidney is enlarged. Nonobstructing small renal calculus. Left kidney not seen. WBC 11.2 hemoglobin 10.9 platelets 347 sodium 140 potassium 7.5/6.1 BUN 60 creatinine 2.06 Troponin I 0.414, 3.4, 90.9 ProBNP 19894 EKG tracing personally reviewed by me-atrial sensed ventricular paced rhythm. Chest x-ray film personally reviewed by me-pulmonary edema Previous labs: [May 2021]: BUN 53 creatinine 2.5 Assessment and plan: -Acute non-Q wave myocardial infarction Lipitor, Coreg, aspirin. Plavix -Acute on chronic congestive heart failure exacerbation: Not improving We'll start on Demadex 0.5 mg an hour drip. Dobutamine drip. -Biventricular AICD -Chronic kidney disease stage IV from diabetic nephropathy and hypertensive nephrosclerosis Follow renal function -Acute kidney injury possibly ATN from cardiorenal syndrome: Not improving Admission creatinine 2.16 Creatinine 4.14 -Severe hyperkalemia in the setting of CK D.: Better Hold Cozaar. Sodium bicarb. Dextrose. Insulin. Kayexalate. -Unilateral right kidney -Chronic gout Continue allopurinol -Hypotension, possibly overdiuresis: New diagnosis Fluid bolus -Acute hypoxic respiratory failure from pulmonary edema: Better BiPAP. Now on 3 L nasal cannula -Acute metabolic acidosis from renal failure.: Improving Bicarbonate drip -CAD with a prior history of coronary bypass Coreg. Plavix. Aspirin. -Peptic ulcer disease PPI. -Diabetes mellitus type 2 on oral hypoglycemic. Uncontrolled with hyperglycemia. Follow Accu-Cheks and sliding scale insulin. Levemir 14 units subcu daily at bedtime. Januvia 50 mg daily. Dobutamine drip ordered by antonio Javier. Discussed with nephrology Dr. Martinez. Start Bumex 0.5 mg an hour drip. Discussed with the patient and sister at the bedside. Prognosis guarded. Follow-up is and os closely.
[2021-09-11 19:49] LABS: Glucose,Whole Blood 237 mg/dL (75-99)
[2021-09-11] MEDS: ATORVASTATIN 80 MG TAB PO SCH (20:27)
[2021-09-11] MEDS: INSULIN DETEMIR (LEVEMIR) 100 UNIT/ML SYR SQ SCH (20:28)
[2021-09-12 05:51] LABS: Glucose,Whole Blood 87 mg/dL (75-99)
[2021-09-12] MEDS: INSULIN ASPART (NovoLOG) 100 UNIT/ML VIAL SQ SCH ×4 (06:16→22:12)
[2021-09-12] MEDS: carvediloL 3.125 MG TAB PO SCH ×2 (06:21→16:17)
[2021-09-12] MEDS: BUMETANIDE 10 MG in DEXTROSE 5% IN WATER 60 ML IV SCH ×4 (06:22→16:17)
[2021-09-12] MEDS: PANTOPRAZOLE 40 MG TABLET PO SCH ×2 (08:47→22:47)
[2021-09-12] MEDS: allopurinoL 100 MG TAB PO SCH (08:47)
[2021-09-12] MEDS: LINAGLIPTIN 5 MG TABLET PO SCH (08:48)
[2021-09-12 10:23] LABS: Calcium 8.7 mg/dL (8.4-10.2); Potassium 4.5 mmol/L (3.5-5.1)
--- NOTE | 2021-09-12 11:14 | P.PN ---
Subjective Patient is seen in follow-up for acute kidney injury on chronic kidney disease. Renal function continues to worsen. Oliguric despite Bumex drip and dobutamine. Edematous. Vital signs are stable. General: On nasal cannula. HEENT: Head exam is unremarkable. LUNGS: Breath sounds decreased. HEART: Rate and Rhythm are regular. ABDOMEN: Soft, no distention. EXTREMITITES: 2+ edema. Objective - Vital Signs Vital signs: Vital Signs Temp 97.0 F L 09/12/21 08:53 Pulse 79 09/12/21 08:53 Resp 22 09/12/21 08:53 BP 83/54 09/12/21 08:53 Pulse Ox 93 L 09/12/21 08:53 Intake & Output 09/11/21 09/12/21 09/12/21 18:59 06:59 18:59 Intake Total 600 78 180 Output Total 50 200 Balance 550 -122 180 Weight 67.9 kg Intake: Intake, IV Titration 78 Amount Bumetanide 10 mg In 78 Dextrose 5% in Water 60 ml @ 0.5 MG/HR 5 mls/hr IV .Q20H [facility] Rx#: [id number] Oral 600 180 Output: Urine 50 100 Post Void Residual 100 Other: Voiding Method Urinal Urinal - Labs CBC & Chem 7: 09/06/21 13:00 09/12/21 09:45 Labs: Abnormal Lab Results - Last 24 Hours (Table) 09/11/21 09/11/21 09/11/21 Range/Units 11:31 16:33 19:47 Sodium (137-145) mmol/L Chloride (98-107) mmol/L Carbon Dioxide (22-30) mmol/L BUN (9-20) mg/dL Creatinine (0.66-1.25) mg/dL Glucose (74-99) mg/dL POC Glucose (mg/dL) 181 H 255 H 237 H (75-99) mg/dL 09/12/21 Range/Units 09:45 Sodium 132 L (137-145) mmol/L Chloride 94 L (98-107) mmol/L Carbon Dioxide 20 L (22-30) mmol/L BUN 132 H* (9-20) mg/dL Creatinine 4.52 H (0.66-1.25) mg/dL Glucose 140 H (74-99) mg/dL POC Glucose (mg/dL) (75-99) mg/dL Assessment and Plan Plan: Assessment: 1. Acute kidney injury secondary to ATN secondary to cardiorenal syndrome. Renal function worsening. Oliguric. Creatinine stable at 4.52 today. 2. Chronic kidney disease stage IV with baseline creatinine near 2 secondary to solitary right kidney and diabetic kidney disease. 3. Acute on chronic systolic CHF. 4. Volume overload. 5. Hypervolemic hyponatremia. 6. Diabetes mellitus. Plan: Due to worsening renal function, oliguria and volume overload, initiate renal replacement therapy. Scheduled for permacath placement this afternoon. First treatment of hemodialysis today and second treatment tomorrow. Stop Bumex drip. Avoid nephrotoxins. Continue to monitor renal function and urine output. Check phosphorus level. Add magnesium oxide
--- NOTE | 2021-09-12 11:27 | P.PN ---
Subjective This is a pleasant 70-year-old male past medical history significant for type 2 diabetes, hypertension, dyslipidemia, coronary artery disease status post four- vessel CABG 2002 (LEWIS-LAD, VG-OM1, VG-OM2, VG-PDA), ischemic cardiomyopathy s/p ICD implantation 2018 at [facility], chronic kidney disease. He follows in the office with Dr. Michael. We have been asked to see in consultation for acute pulmonary edema and elevated troponin. Patient presents to the emergency department with worsening shortness of breath. He states he has been having s ymptoms of shortness of breath for a few months now. However, over the past couple days he been having worsening shortness of breath and dyspnea on exertion. Yesterday he states he had an episode of chest discomfort, describes it as a pressure. It was non-radiating, non-exertional. He called his sister, she noted him being diaphoretic. He also was very short of breath. He decided to present to the emergency department for further evaluation. He also endorses about 2lb weight gain. He has symptoms of orthopnea. He states he has been having difficulty sleeping due to shortness of breath. He denies nausea, vomiting, abdominal pain, fever or chills. He is a non-smoker. DIAGNOSTICS Echocardiogram revealed an EF of 2025%, moderate mitral regurgitation, mild tricuspid regurgitation. 09/12/21 Patient seen and examined at bedside, he continues to not feel well. He has symptoms of shortness of breath and orthopnea. He has edema in his bilateral upper and lower extremities. Patient with 400mL urine output documented over 24 hours. He is maintained on aspirin 81 daily, atorvastatin 80 mg nightly, Coreg 12.5 mg twice a day, IV Bumex drip 0.5mg/hr (changed per nephrology), and Dobutamine 2.5mcg/kg/min. Patient allergic to heparin. Labs reviewed sodium 132, potassium 4.5, BUN 132, serum creatinine 4.52 PHYSICAL EXAMINATION Blood pressure 104/68, heart rate 79, afebrile oxygen saturation is 94% on 2 L nasal cannula CONSTITUTIONAL: Short of breath HEENT: Neck Supple. Mild JVD. CHEST EXAMINATION: Lungs diminished bilaterally to auscultation HEART EXAMINATION: Regular rate and rhythm. S1, S2 heard. Systolic murmur at apex ABDOMEN: Soft, nontender. Positive bowel sounds. EXTREMITIES: 2+ peripheral pulses, bilateral lower extremity edema, 2+ bilateral upper extremity edema L >R and no calf tenderness. NEUROLOGIC EXAMINATION: Patient is awake, alert and oriented x3. ASSESSMENT Acute systolic heart failure NSTEMI Hyperkalemia Severe metabolic acidosis Acute on Chronic kidney disease Type 2 diabetes Hypertension Dyslipidemia Coronary artery disease status post four-vessel CABG 2002 (LEWIS-LAD, VG-OM1, VG- OM2, VG-PDA) Ischemic cardiomyopathy s/p ICD implantation 2018 PLAN Continue Dobutamine 2.5mcg/kg/min Continue aspirin, plavix, statin, carvedilol Nephrology following, appreciate recommendations, due to worsening renal function, oliguria and volume overload plan for renal replacement therapy Plan for permacath placement today. Monitor I/Os, daily weights Monitor renal function and electrolytes Further recommendations based on clinical course Nurse Practitioner note has been reviewed, I agree with a documented findings and plan of care. Patient was seen and examined. Objective - Vital Signs Vital signs: Vital Signs Temp 97.0 F L 09/12/21 08:53 Pulse 79 09/12/21 08:53 Resp 22 09/12/21 08:53 BP 83/54 09/12/21 08:53 Pulse Ox 93 L 09/12/21 08:53 Intake & Output 09/11/21 09/12/21 09/12/21 18:59 06:59 18:59 Intake Total 600 78 Output Total 50 200 Balance 550 -122 Weight 67.9 kg Intake: Intake, IV Titration 78 Amount Bumetanide 10 mg In 78 Dextrose 5% in Water 60 ml @ 0.5 MG/HR 5 mls/hr IV .Q20H [facility] Rx#: [id number] Oral 600 Output: Urine 50 100 Post Void Residual 100 Other: Voiding Method Urinal Urinal - Labs CBC & Chem 7: 09/06/21 13:00 09/12/21 09:45 Labs: Abnormal Lab Results - Last 24 Hours (Table) 09/11/21 09/11/21 09/11/21 Range/Units 08:17 11:31 16:33 Sodium 134 L (137-145) mmol/L Chloride 95 L (98-107) mmol/L Carbon Dioxide 21 L (22-30) mmol/L BUN 126 H* (9-20) mg/dL Creatinine 4.14 H (0.66-1.25) mg/dL Glucose 197 H (74-99) mg/dL POC Glucose (mg/dL) 181 H 255 H (75-99) mg/dL 09/11/21 Range/Units 19:47 Sodium (137-145) mmol/L Chloride (98-107) mmol/L Carbon Dioxide (22-30) mmol/L BUN (9-20) mg/dL Creatinine (0.66-1.25) mg/dL Glucose (74-99) mg/dL POC Glucose (mg/dL) 237 H (75-99) mg/dL
[2021-09-12 11:28] LABS: Glucose,Whole Blood 147 mg/dL (75-99)
[2021-09-12] MEDS: DOBUTamine DRIP 500 MG in DEXTROSE/WATER 1 250ML.BAG IV SCH (11:29)
[2021-09-12] MEDS ORDERED: IV FLUID CONTINUATION 500 ML IV ONE (14:20)
[2021-09-12] MEDS ORDERED: SODIUM CITRATE 250 ML IV PRN (14:20)
--- NOTE | 2021-09-12 14:21 | P.GSCN ---
History of Present Illness History of present illness: 70-year-old gentleman, consulted for placement of urgent dialysis catheter. 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, hx of gout History of Any Multi-Drug Resistant Organisms: None Reported Past Surgical History: AICD, Appendectomy, Coronary Bypass/CABG, Tonsillectomy Additional Past Surgical History / Comment(s): CABG X4, [facility] AICD, eriberto cataracts Past Anesthesia/Blood Transfusion Reactions: No Reported Reaction Type of Cardiac Device: AICD Device Placement Date:: 09/18/19 Smoking Status: Never smoker - Past Family History Mother Family Medical History: Cancer, Hypertension Additional Family Medical History / Comment(s): breast CA Father Family Medical History: Cancer Additional Family Medical History / Comment(s): TB. lung CA Medications and Allergies Home Medications Medication Instructions Recorded Confirmed Type Allopurinol [Zyloprim] 100 mg PO DAILY 06/15/21 09/04/21 History Aspirin [Adult Low Dose Aspirin EC] 81 mg PO DAILY 06/15/21 09/04/21 History Carvedilol [Coreg] 12.5 mg PO BID 06/15/21 09/04/21 History Clopidogrel [Plavix] 75 mg PO DAILY 06/15/21 09/04/21 History Ferrous Sulfate [Iron] 325 mg PO MOTUWETH 06/15/21 09/04/21 History Furosemide [Lasix] 20 mg PO DAILY 06/15/21 09/04/21 History Losartan Potassium 100 mg PO DAILY 06/15/21 09/04/21 History Multivit-Min/FA/Lycopen/Lutein 1 tab PO DAILY 06/15/21 09/04/21 History [Centrum Silver Men Tablet] Omeprazole [PriLOSEC] 20 mg PO BID 06/15/21 09/04/21 History Simvastatin 80 mg PO DAILY 06/15/21 09/04/21 History Sucralfate [Carafate] 1 gm PO BID 06/15/21 09/04/21 History sitaGLIPtin PHOS/metFORMIN HCL 1 tab PO BID 06/15/21 09/04/21 History [Janumet 50-1,000 mg Tablet] Allergies Allergy/AdvReac Type Severity Reaction Status Date / Time heparin Allergy Unknown Verified 09/04/21 11:55 Surgical - Exam Vital Signs Pulse Resp BP Pulse Ox 102 H 33 H 165/88 100 09/04/21 10:56 09/04/21 10:56 09/04/21 10:56 09/04/21 10:56 Results - Labs 09/06/21 13:00 09/12/21 09:45 Abnormal Lab Results - Last 24 Hours (Table) 09/11/21 09/11/21 09/12/21 Range/Units 16:33 19:47 09:45 Sodium 132 L (137-145) mmol/L Chloride 94 L (98-107) mmol/L Carbon Dioxide 20 L (22-30) mmol/L BUN 132 H* (9-20) mg/dL Creatinine 4.52 H (0.66-1.25) mg/dL Glucose 140 H (74-99) mg/dL POC Glucose (mg/dL) 255 H 237 H (75-99) mg/dL 09/12/21 Range/Units 11:26 Sodium (137-145) mmol/L Chloride (98-107) mmol/L Carbon Dioxide (22-30) mmol/L BUN (9-20) mg/dL Creatinine (0.66-1.25) mg/dL Glucose (74-99) mg/dL POC Glucose (mg/dL) 147 H (75-99) mg/dL Diabetes panel 09/12/21 Range/Units 09:45 Sodium 132 L (137-145) mmol/L Potassium 4.5 (3.5-5.1) mmol/L Chloride 94 L (98-107) mmol/L Carbon Dioxide 20 L (22-30) mmol/L BUN 132 H* (9-20) mg/dL Creatinine 4.52 H (0.66-1.25) mg/dL Glucose 140 H (74-99) mg/dL Calcium 8.7 (8.4-10.2) mg/dL Calcium panel 09/12/21 Range/Units 09:45 Calcium 8.7 (8.4-10.2) mg/dL Pituitary panel 09/12/21 Range/Units 09:45 Sodium 132 L (137-145) mmol/L Potassium 4.5 (3.5-5.1) mmol/L Chloride 94 L (98-107) mmol/L Carbon Dioxide 20 L (22-30) mmol/L BUN 132 H* (9-20) mg/dL Creatinine 4.52 H (0.66-1.25) mg/dL Glucose 140 H (74-99) mg/dL Calcium 8.7 (8.4-10.2) mg/dL Adrenal panel 09/12/21 Range/Units 09:45 Sodium 132 L (137-145) mmol/L Potassium 4.5 (3.5-5.1) mmol/L Chloride 94 L (98-107) mmol/L Carbon Dioxide 20 L (22-30) mmol/L BUN 132 H* (9-20) mg/dL Creatinine 4.52 H (0.66-1.25) mg/dL Glucose 140 H (74-99) mg/dL Calcium 8.7 (8.4-10.2) mg/dL
[2021-09-12] MEDS ORDERED: MIDAZOLAM 2 MG/2 ML VIAL IV ONE (14:25)
[2021-09-12] MEDS ORDERED: LIDOCAINE 1% INJ 10MG/ML (20 ML MDV) SQ ONE (14:30)
--- NOTE | 2021-09-12 14:59 | P.PCN ---
Description of Procedure: Preoperative diagnoses is acute chronic renal failure Postoperative same Procedure sedation time was 20 minutes this patient brought to the Dry Room Attendant right groin was prepped and draped applied sterile manner 1% lidocaine for placed in the right groin ultrasound-guided micropuncture point in the right femoral vein micropuncture guidewire was passed. After that 4-Russian dilator was on the top of guidewire. Then we passed a regular guidewire without any resistance dilator were advanced top the guidewire then we placed 30 mL M destin lysis catheter on the top of guidewire guidewire was removed flushed with sodium citrate was patient has an ALLERGY to heparin secured with 3-0 nylon dressing applied to tolerate the procedure well
[2021-09-12] MEDS: ASPIRIN 81 MG PO SCH (15:16)
[2021-09-12] MEDS: CLOPIDOGREL 75 MG TAB PO SCH (15:17)
--- NOTE | 2021-09-12 15:46 | IR ---
EXAMINATION TYPE: IR cvc insert non tunneled DATE OF EXAM: 09/12/2021 COMPARISON: NONE HISTORY: Dialysis catheter placement Fluoroscopy support supplied to the referring clinician. See dictated report from vascular surgery, 0.1 minutes fluoroscopy time, 17 intraoperative images document the procedure
[2021-09-12] MEDS: MAGNESIUM OXIDE 400 MG TAB PO SCH (16:17)
[2021-09-12 16:41] LABS: Glucose,Whole Blood 173 mg/dL (75-99)
--- NOTE | 2021-09-12 17:21 | P.PN ---
Progress Note - Text Progress Note Date: 09/12/21 Chief Complaint: Short of breath This is a pleasant 70-year-old patient was chronic stable medical conditions include diabetes, peptic ulcer disease, unilateral right kidney, gout, CAD with a bypass, AICD. Has known underlying ischemic cardiomyopathy. Patient presente d increasing shortness of breath through the previous night. Some chest pressure. Slight perspiration. Minimal cough. No fever no chills. No lower extremity swelling. Presents to the ER. Admitted with acute non-Q-wave [place], acute on chronic congestive heart exacerbation, acute hypoxic respiratory failure. Metabolic acidosis. Hyperkalemia. Treated with BiPAP, IV Lasix, bicarb Kayexalate. 09/05/2021: Sitting up in bed. Short of breath. On nasal cannula. Tired. No chest pain. 09/06/2021: Sitting at the age of the bed. Breathing better. Decreased appetite. Nasal cannula. On IV Lasix. 09/07/2021: Sitting up. Diet. Decrease appetite. Concerned about his overall condition. Some shortness of breath. On IV Lasix. 09/08/2021. Patient is long discussion with Dr. Arroyo from nephrology. Appetite a bit better today. I discussed with Dr. Arroyo. Lasix 40 mg IV daily. Creatinine has bumped up. To be discharged on 40 mg twice a day. Hopefully tomorrow. Increase activity. 09/09/2021: Patient was hypotensive this morning. Systolic blood pressures in the 90s. Creatinine has gone up. Did receive his Lasix this morning. Given 500 mL bolus by nephrology. I have held IV Lasix. Does of Coreg cutback. Discussed with the patient. Also with nephrology. 09/10/2021: Blood pressure bit better this morning. A bit tired. Creatinine up a bit more. Torsemide 40 mg by mouth added daily by nephrology. Discussed with the patient. Follow 09/11/2021: Was seen renal function. Tired. Poor IV access. Midline ordered. Discussed with Dr. Martinez from nephrology. Dobutamine has been ordered by cardiology. Bumex 0.5 mg an hour drip to be started. Care was discussed with the patient and sister the bedside. If things don't improve may need renal replacement therapy. 09/12/2021: Patient did not respond to well to the dobutamine and Bumex drip. Dobutamine discontinued. Hemodialysis catheter placement Dr. Escamilla. For first hemodialysis today. Discussed with Dr. Martinez and with the patient. Tired. Sitting up. Review of systems: Was done for constitutional, cardiovascular, GI, pulmonary. relevant finding as above Active Medications Allopurinol (Allopurinol 100 Mg Tab) 100 mg PO DAILY [facility] Last Admin: 09/12/21 08:47 Dose: 100 mg Documented by: Aspirin (Aspirin 81 Mg) 81 mg PO DAILY [facility] Last Admin: 09/12/21 15:16 Dose: Not Given Documented by: Atorvastatin Calcium (Atorvastatin 80 Mg Tab) 80 mg PO HS [facility] Last Admin: 09/11/21 20:27 Dose: 80 mg Documented by: Carvedilol (Carvedilol 3.125 Mg Tab) 3.125 mg PO BID-W/MEALS [facility] Last Admin: 09/12/21 16:17 Dose: 3.125 mg Documented by: Clopidogrel Bisulfate (Clopidogrel 75 Mg Tab) 75 mg PO DAILY [facility] Last Admin: 09/12/21 15:17 Dose: Not Given Documented by: Bumetanide 10 mg/ Dextrose/ (Water) 100 mls @ 5 mls/hr IV .Q20H [facility] Last Admin: 09/12/21 16:17 Dose: 0.5 mg/hr, 5 mls/hr Documented by: Sodium Citrate (Sodium Citrate) 250 mls @ 0 mls/hr IV .Q0M PRN PRN Reason: BUNG REMOVER Stop: 09/12/21 20:00 Insulin Aspart (Insulin Aspart (Novolog) 100 Unit/Ml Vial) 0 unit SQ [facility]; Protocol Last Admin: 09/12/21 11:28 Dose: Not Given Documented by: Insulin Detemir (Insulin Detemir (Levemir) 100 Unit/Ml Syr) 14 unit SQ [facility] Last Admin: 09/11/21 20:28 Dose: 14 unit Documented by: Linagliptin (Linagliptin 5 Mg Tablet) 5 mg PO DAILY [facility] Last Admin: 09/12/21 08:48 Dose: 5 mg Documented by: Magnesium Oxide (Magnesium Oxide 400 Mg Tab) 400 mg PO DAILY [facility] Last Admin: 09/12/21 16:17 Dose: 400 mg Documented by: Miscellaneous Information (Potassium Replacement Protocol 1 Each Misc) 1 each MISCELLANE DAILY PRN; Protocol PRN Reason: Per Protocol Pantoprazole Sodium (Pantoprazole 40 Mg Tablet) 40 mg PO BID [facility] Last Admin: 09/12/21 08:47 Dose: 40 mg Documented by: Zolpidem Tartrate (Zolpidem 5 Mg Tab) 2.5 mg PO HS PRN PRN Reason: sleep Last Admin: 09/11/21 20:27 Dose: 2.5 mg Documented by: Past medical history to include: Diabetes mellitus type 2, COPD, AICD, peptic ulcer disease, unilateral right kidney, gout, CAD with a bypass Family history: Breast cancer, hypertension Social history: No history of smoking or alcohol. Physical examination: VITAL SIGNS: 96.8, 90, 24, 1 or 2 x 56, 100% on 2 L GENERAL: Sitting up, awake, tired EYES: Pupils equal. Conjunctiva normal. HEENT: External appearance of nose and ears normal, oral cavity grossly normal. NECK: JVD unable to assess; masses not palpable. HEART: First and second heart sounds are normal; significant edema LUNGS: Respiratory rate increased, diminished breath sounds ABDOMEN: Soft, nontender, liver spleen not palpable, no masses palpable. PSYCH: [Alert and oriented x3; mood and affect anxious INVESTIGATIONS, reviewed in the clinical context: September 12: Sodium 132 potassium 4.5 BUN 132 creatinine 4.52 September 11: Sodium 134 potassium 4.4 bicarb 21 BUN 126 creatinine 4.14 September 10: Sodium 133 potassium 4 BUN 114 creatinine 4.15 September 05: Potassium 5 bicarb 17 BUN 65 creatinine 2.17 troponin I 8.8 Renal ultrasound: Right renal cortical cyst. No hydronephrosis. Right kidney is enlarged. Nonobstructing small renal calculus. Left kidney not seen. WBC 11.2 hemoglobin 10.9 platelets 347 sodium 140 potassium 7.5/6.1 BUN 60 creatinine 2.06 Troponin I 0.414, 3.4, 90.9 ProBNP 08279 EKG tracing personally reviewed by me-atrial sensed ventricular paced rhythm. Chest x-ray film personally reviewed by me-pulmonary edema Previous labs: [May 2021]: BUN 53 creatinine 2.5 Assessment and plan: -Acute non-Q wave myocardial infarction Lipitor, Coreg, aspirin. Plavix -Acute on chronic congestive heart failure exacerbation: Not improving Received Demadex 0.5 mg an hour drip-. Dobutamine drip-discontinued. 4 hemodialysis -Biventricular AICD -Chronic kidney disease stage IV from diabetic nephropathy and hypertensive nephrosclerosis Follow renal function -Acute kidney injury possibly ATN from cardiorenal syndrome: Worsening Admission creatinine 2.16 Creatinine 4.52. Hemodialysis to be started today -Severe hyperkalemia in the setting of CK D.: Better Hold Cozaar. Sodium bicarb. Dextrose. Insulin. Kayexalate. -Unilateral right kidney -Chronic gout Continue allopurinol -Hypotension, cardiac -Acute hypoxic respiratory failure from pulmonary edema: Better Initially BiPAP. Now on 3 L nasal cannula -Acute metabolic acidosis from renal failure.: Improving Bicarbonate drip -CAD with a prior history of coronary bypass Coreg. Plavix. Aspirin. -Peptic ulcer disease PPI. -Diabetes mellitus type 2 on oral hypoglycemic. Uncontrolled with hyperglycemia. Follow Accu-Cheks and sliding scale insulin. Levemir 14 units subcu daily at bedtime. Januvia 50 mg daily. Dobutamine discontinued. 4 hemodialysis today. Discussed with the patient and with nephrology. Other medications to continue.
[2021-09-12 19:54] LABS: Glucose,Whole Blood 123 mg/dL (75-99)
[2021-09-12] MEDS: ATORVASTATIN 80 MG TAB PO SCH (22:47)
[2021-09-12] MEDS: INSULIN DETEMIR (LEVEMIR) 100 UNIT/ML SYR SQ SCH (22:47)
[2021-09-13 03:54] LABS: Glucose,Whole Blood 110 mg/dL (75-99)
[2021-09-13] MEDS: BUMETANIDE 10 MG in DEXTROSE 5% IN WATER 60 ML IV SCH ×2 (05:59)
[2021-09-13 06:11] LABS: Glucose,Whole Blood 114 mg/dL (75-99)
[2021-09-13] MEDS: INSULIN ASPART (NovoLOG) 100 UNIT/ML VIAL SQ SCH ×4 (06:19→16:59)
[2021-09-13] MEDS: carvediloL 3.125 MG TAB PO SCH ×2 (06:32→17:31)
[2021-09-13 06:45] LABS: Hepatitis B Surface AB- Quant 3.5 mIU/mL; Hepatitis B Surface Antibody Nonreactive (Nonreactive)
[2021-09-13 07:15] LABS: Albumin 3.1 g/dL (3.5-5.0); Calcium 8.6 mg/dL (8.4-10.2); Magnesium 1.8 mg/dL (1.6-2.3); Phosphorus 7.6 mg/dL (2.5-4.5); Potassium 4.2 mmol/L (3.5-5.1); Total Bilirubin 0.6 mg/dL (0.2-1.3); Total Protein 5.3 g/dL (6.3-8.2)
[2021-09-13] MEDS ORDERED: ACETAMINOPHEN TAB 325 MG TAB PO STA (07:48)
[2021-09-13] MEDS: PANTOPRAZOLE 40 MG TABLET PO SCH ×2 (07:52→20:57)
[2021-09-13] MEDS: CLOPIDOGREL 75 MG TAB PO SCH ×2 (07:52→07:53)
[2021-09-13] MEDS: ASPIRIN 81 MG PO SCH (07:52)
[2021-09-13] MEDS: MAGNESIUM OXIDE 400 MG TAB PO SCH (07:52)
[2021-09-13] MEDS: LINAGLIPTIN 5 MG TABLET PO SCH (07:53)
[2021-09-13] MEDS: allopurinoL 100 MG TAB PO SCH (07:59)
--- NOTE | 2021-09-13 09:09 | CT ---
EXAMINATION TYPE: CT cervical spine wo con DATE OF EXAM: 09/13/2021 COMPARISON: None HISTORY: Fall, c/o neck pain CT DLP: 1043.[address] of the cervical spine was performed with bone and soft tissue window settings submitted . Coronal and sagittal reconstruction is obtained. There is normal alignment and prevertebral soft tissues. I do not see evidence for fracture or subluxation. Moderate to severe multilevel degenerati ve disc disease with the degenerative disc space narrowing and spondylosis. The lung apices are clear IMPRESSION: No evidence for fracture or subluxation of the cervical spine.
[2021-09-13] MEDS ORDERED: ACETAMINOPHEN TAB 325 MG TAB PO PRN (10:05)
[2021-09-13] MEDS ORDERED: BACLOFEN 10 MG TAB PO PRN (10:05)
[2021-09-13 10:56] LABS: Hepatitis B Surface Antigen Nonreactive (Nonreactive)
--- NOTE | 2021-09-13 11:21 | P.PN ---
Subjective Patient is seen in follow-up for acute kidney injury on chronic kidney disease. Started on hemodialysis September 12. Has a femoral catheter. Urine output 200 mL overnight. Slipped from his bed last night. No active complaints. Vital signs are stable. General: On nasal cannula. HEENT: Head exam is unremarkable. LUNGS: Breath sounds decreased. HEART: Rate and Rhythm are regular. ABDOMEN: Soft, no distention. EXTREMITITES: 2+ edema. Objective - Vital Signs Vital signs: Vital Signs Temp 98.1 F 09/13/21 07:35 Pulse 96 09/13/21 07:35 Resp 20 09/13/21 07:35 BP 94/57 09/13/21 07:35 Pulse Ox 100 09/13/21 07:35 Intake & Output 09/12/21 09/13/21 09/13/21 18:59 06:59 18:59 Intake Total 279.583 908.5 290 Output Total 2500 80 Balance 279.583 -1591.5 210 Weight 71 kg Intake: IV 50 10 Invasive Line 5 10 Intake, IV Titration 49.583 68.5 Amount Bumetanide 10 mg In 49.583 68.5 Dextrose 5% in Water 60 ml @ 0.5 MG/HR 5 mls/hr IV .Q20H [facility] Rx#: [id number] Oral 180 540 280 Hemodialysis 300 Output: Urine 200 80 Hemodialysis 2300 Other: Voiding Method Urinal Urinal Urinal # Voids 1 1 - Labs CBC & Chem 7: 09/06/21 13:00 09/13/21 06:13 Labs: Abnormal Lab Results - Last 24 Hours (Table) 09/12/21 09/12/21 09/12/21 Range/Units 11:26 16:39 19:52 Sodium (137-145) mmol/L Chloride (98-107) mmol/L BUN (9-20) mg/dL Creatinine (0.66-1.25) mg/dL Glucose (74-99) mg/dL POC Glucose (mg/dL) 147 H 173 H 123 H (75-99) mg/dL Phosphorus (2.5-4.5) mg/dL ALT (4-49) U/L Alkaline Phosphatase (38-126) U/L Total Protein (6.3-8.2) g/dL Albumin (3.5-5.0) g/dL 09/13/21 09/13/21 09/13/21 Range/Units 03:53 06:08 06:13 Sodium 133 L (137-145) mmol/L Chloride 93 L (98-107) mmol/L BUN 99 H (9-20) mg/dL Creatinine 3.59 H (0.66-1.25) mg/dL Glucose 100 H (74-99) mg/dL POC Glucose (mg/dL) 110 H 114 H (75-99) mg/dL Phosphorus 7.6 H (2.5-4.5) mg/dL ALT 58 H (4-49) U/L Alkaline Phosphatase 130 H (38-126) U/L Total Protein 5.3 L (6.3-8.2) g/dL Albumin 3.1 L (3.5-5.0) g/dL Assessment and Plan Plan: Assessment: 1. Acute kidney injury secondary to ATN secondary to cardiorenal syndrome. Started on hemodialysis September 12. Has a femoral dialysis catheter. 2. Chronic kidney disease stage IV with baseline creatinine near 2 secondary to solitary right kidney and diabetic kidney disease. 3. Acute on chronic systolic CHF. 4. Volume overload. 5. Hypervolemic hyponatremia. 6. Diabetes mellitus. 7. Hyperphosphatemia secondary to acute kidney injury. Plan: Hemodialysis today and again tomorrow. Add Lasix 80 mg orally twice daily. Continue to monitor renal function and urine output. Add PhosLo. Increase dose of midodrine.
[2021-09-13 11:29] VITALS: BMI 30.5
[2021-09-13 11:42] LABS: Glucose,Whole Blood 149 mg/dL (75-99)
--- NOTE | 2021-09-13 11:44 | PN ---
PROGRESS NOTE Mr. Chow is a 70-year-old male with a known history of severe cardiomyopathy, status post ICD implant, history of coronary bypass grafting, who presented with symptoms of progressive dyspnea and worsening renal failure with cardiorenal syndrome. He underwent dialysis yesterday. He is feeling better today. His energy is better. His breathing is better. He had removal of more than 2 L of fluid yesterday and is scheduled to undergo repeat dialysis today. He continues to be on aspirin once a day, Lipitor 80 mg daily, Coreg 3.125 mg twice a day, Plavix 75 mg daily, insulin, Tradjenta 5 mg daily, midodrine 5 mg three times a day. He is off his dobutamine drip. PHYSICAL EXAMINATION: Blood pressure is running in the high 90s to low 100s with a heart rate in the 90s. LUNGS: No wheezes or rales. HEART: Regular rate and rhythm. S1, S2. No S3, with systolic murmur at the base. No diastolic murmur. ABDOMEN: Soft, nontender. EXTREMITIES: Decreased edema. LAB DATA: BUN and creatinine 99 and 3.59. Potassium 4.2. IMPRESSION: 1. Congestive heart failure with severe ischemic cardiomyopathy with cardiorenal syndrome. 2. Status post dialysis for acute renal failure. 3. History of coronary artery bypass grafting. 4. History of hyperlipidemia. 5. Status post ICD implantation. 6. Diabetes mellitus. RECOMMENDATIONS: He will continue present therapy. Will continue dialysis. Follow his renal function. Depending on his progress, further recommendations will be made. The prognosis remains guarded. MMODL / IJN: [id number] / MTDD
[2021-09-13] MEDS: MIDODRINE 5 MG TAB PO SCH ×2 (12:16→17:32)
[2021-09-13] MEDS: CALCIUM ACETATE 667 MG TAB PO SCH ×2 (12:16→17:32)
[2021-09-13] MEDS ORDERED: MIDODRINE 5 MG TAB PO SCH (12:30)
[2021-09-13] MEDS ORDERED: MIDODRINE 5 MG TAB PO ONE (13:15)
[2021-09-13 14:52] LABS: Potassium 3.5 mmol/L (3.5-5.1)
[2021-09-13] MEDS: FUROSEMIDE 80 MG TAB PO SCH (15:51)
[2021-09-13 16:35] LABS: Glucose,Whole Blood 98 mg/dL (75-99)
--- NOTE | 2021-09-13 17:19 | P.PN ---
Progress Note - Text Progress Note Date: 09/13/21 Chief Complaint: Short of breath This is a pleasant 70-year-old patient was chronic stable medical conditions include diabetes, peptic ulcer disease, unilateral right kidney, gout, CAD with a bypass, AICD. Has known underlying ischemic cardiomyopathy. Patient presente d increasing shortness of breath through the previous night. Some chest pressure. Slight perspiration. Minimal cough. No fever no chills. No lower extremity swelling. Presents to the ER. Admitted with acute non-Q-wave MD, acute on chronic congestive heart exacerbation, acute hypoxic respiratory failure. Metabolic acidosis. Hyperkalemia. Treated with BiPAP, IV Lasix, bicarb Kayexalate. 09/05/2021: Sitting up in bed. Short of breath. On nasal cannula. Tired. No chest pain. 09/06/2021: Sitting at the age of the bed. Breathing better. Decreased appetite. Nasal cannula. On IV Lasix. 09/07/2021: Sitting up. Diet. Decrease appetite. Concerned about his overall condition. Some shortness of breath. On IV Lasix. 09/08/2021. Patient is long discussion with Dr. Arroyo from nephrology. Appetite a bit better today. I discussed with Dr. Arroyo. Lasix 40 mg IV daily. Creatinine has bumped up. To be discharged on 40 mg twice a day. Hopefully tomorrow. Increase activity. 09/09/2021: Patient was hypotensive this morning. Systolic blood pressures in the 90s. Creatinine has gone up. Did receive his Lasix this morning. Given 500 mL bolus by nephrology. I have held IV Lasix. Does of Coreg cutback. Discussed with the patient. Also with nephrology. 09/10/2021: Blood pressure bit better this morning. A bit tired. Creatinine up a bit more. Torsemide 40 mg by mouth added daily by nephrology. Discussed with the patient. Follow 09/11/2021: Was seen renal function. Tired. Poor IV access. Midline ordered. Discussed with Dr. Martinez from nephrology. Dobutamine has been ordered by cardiology. Bumex 0.5 mg an hour drip to be started. Care was discussed with the patient and sister the bedside. If things don't improve may need renal replacement therapy. 09/12/2021: Patient did not respond to well to the dobutamine and Bumex drip. Dobutamine discontinued. Hemodialysis catheter placement Dr. Escamilla. For first hemodialysis today. Discussed with Dr. Martinez and with the patient. Tired. Sitting up. 09/13/2021: I protocol from the nurse earlier today that patient has slipped from his bed. Did not hurt himself. Did not hit his head. Later he was com plaining of pain in the neck. Cervical collar was ordered. I ordered a stat computed tomography scan. Computed tomography scan was negative for any fracture. Ice pack was given. Getting the computed tomography scan patient had an episode of temporally passing out past the patient was laid down he came right back around. It was felt to be vasovagal. Patient's family at the bedside including his sister. For hemodialysis this afternoon. Patient has decreased appetite. Review of systems: Was done for constitutional, cardiovascular, GI, pulmonary. relevant finding as above Active Medications Acetaminophen (Acetaminophen Tab 325 Mg Tab) 650 mg PO Q6HR PRN PRN Reason: Fever and/ or Pain Allopurinol (Allopurinol 100 Mg Tab) 100 mg PO DAILY [facility] Last Admin: 09/13/21 07:59 Dose: 100 mg Documented by: Aspirin (Aspirin 81 Mg) 81 mg PO DAILY [facility] Last Admin: 09/13/21 07:52 Dose: 81 mg Documented by: Atorvastatin Calcium (Atorvastatin 80 Mg Tab) 80 mg PO HS [facility] Last Admin: 09/12/21 22:47 Dose: 80 mg Documented by: Baclofen (Baclofen 10 Mg Tab) 5 mg PO QID PRN PRN Reason: Muscle Spasm Last Admin: 09/13/21 11:02 Dose: 5 mg Documented by: Calcium Acetate (Calcium Acetate 667 Mg Tab) 667 mg PO TID-W/MEALS [facility] Last Admin: 09/13/21 12:16 Dose: Not Given Documented by: Carvedilol (Carvedilol 3.125 Mg Tab) 3.125 mg PO BID-W/[facility]ALS [facility] Last Admin: 09/13/21 06:32 Dose: 3.125 mg Documented by: Clopidogrel Bisulfate (Clopidogrel 75 Mg Tab) 75 mg PO DAILY [facility] Last Admin: 09/13/21 07:53 Dose: 75 mg Documented by: Furosemide (Furosemide 80 Mg Tab) 80 mg PO BID@0900,1600 [facility] Last Admin: 09/13/21 15:51 Dose: 80 mg Documented by: Insulin Aspart (Insulin Aspart (Novolog) 100 Unit/Ml Vial) 0 unit SQ ACHS [facility]; Protocol Last Admin: 09/13/21 16:59 Dose: Not Given Documented by: Insulin Detemir (Insulin Detemir (Levemir) 100 Unit/Ml Syr) 14 unit SQ HS [facility] Last Admin: 09/12/21 22:47 Dose: 14 unit Documented by: Linagliptin (Linagliptin 5 Mg Tablet) 5 mg PO DAILY [facility] Last Admin: 09/13/21 07:53 Dose: 5 mg Documented by: Magnesium Oxide (Magnesium Oxide 400 Mg Tab) 400 mg PO DAILY [facility] Last Admin: 09/13/21 07:52 Dose: 400 mg Documented by: Midodrine (Midodrine 5 Mg Tab) 10 mg PO AC-TID [facility] Last Admin: 09/13/21 12:16 Dose: 10 mg Documented by: Miscellaneous Information (Potassium Replacement Protocol 1 Each Misc) 1 each MISCELLANE DAILY PRN; Protocol PRN Reason: Per Protocol Pantoprazole Sodium (Pantoprazole 40 Mg Tablet) 40 mg PO BID [facility] Last Admin: 09/13/21 07:52 Dose: 40 mg Documented by: Zolpidem Tartrate (Zolpidem 5 Mg Tab) 2.5 mg PO HS PRN PRN Reason: sleep Last Admin: 09/11/21 20:27 Dose: 2.5 mg Documented by: Past medical history to include: Diabetes mellitus type 2, COPD, AICD, peptic ulcer disease, unilateral right kidney, gout, CAD with a bypass Family history: Breast cancer, hypertension Social history: No history of smoking or alcohol. Physical examination: VITAL SIGNS: 98.1, 86, 22, 106/67, 99% on 2 L GENERAL: Sitting up, awake, tired EYES: Pupils equal. Conjunctiva normal. HEENT: External appearance of nose and ears normal, oral cavity grossly normal. NECK: JVD unable to assess; masses not palpable. HEART: First and second heart sounds are normal; decreasing edema LUNGS: Respiratory rate increased, diminished breath sounds ABDOMEN: Soft, nontender, liver spleen not palpable, no masses palpable. PSYCH: [Alert and oriented x3; mood and affect anxious INVESTIGATIONS, reviewed in the clinical context: September 13: Sodium 133 potassium 4.2 BUN 99 creatinine 3.59 September 12: Sodium 132 potassium 4.5 BUN 132 creatinine 4.52 September 11: Sodium 134 potassium 4.4 bicarb 21 BUN 126 creatinine 4.14 September 10: Sodium 133 potassium 4 BUN 114 creatinine 4.15 September 05: Potassium 5 bicarb 17 BUN 65 creatinine 2.17 troponin I 8.8 Renal ultrasound: Right renal cortical cyst. No hydronephrosis. Right kidney is enlarged. Nonobstructing small renal calculus. Left kidney not seen. WBC 11.2 hemoglobin 10.9 platelets 347 sodium 140 potassium 7.5/6.1 BUN 60 creatinine 2.06 Troponin I 0.414, 3.4, 90.9 ProBNP 16601 EKG tracing personally reviewed by me-atrial sensed ventricular paced rhythm. Chest x-ray film personally reviewed by me-pulmonary edema Previous labs: [May 2021]: BUN 53 creatinine 2.5 Assessment and plan: -Acute non-Q wave myocardial infarction Lipitor, Coreg, aspirin. Plavix -Acute on chronic congestive heart failure exacerbation: Not improving Received Demadex 0.5 mg an hour drip-. Dobutamine drip-discontinued. Getting daily hemodialysis started on September 12 -Biventricular AICD -Chronic kidney disease stage IV from diabetic nephropathy and hypertensive nephrosclerosis Follow renal function -Acute kidney injury possibly ATN from cardiorenal syndrome: Not improving Admission creatinine 2.16 Creatinine 4.52. Hemodialysis started in September 12 -Severe hyperkalemia in the setting of CK D.: Better Hold Cozaar. Sodium bicarb. Dextrose. Insulin. Kayexalate. -Unilateral right kidney -Chronic gout Continue allopurinol -Hypotension, cardiac -Acute hypoxic respiratory failure from pulmonary edema: Better Initially BiPAP. Now on 3 L nasal cannula -Acute metabolic acidosis from renal failure.: Improving Bicarbonate drip -CAD with a prior history of coronary bypass Coreg. Plavix. Aspirin. -Peptic ulcer disease PPI. -Diabetes mellitus type 2 on oral hypoglycemic. Uncontrolled with hyperglycemia. Follow Accu-Cheks and sliding scale insulin. Levemir 14 units subcu daily at bedtime. Januvia 50 mg daily. Secondary of hemodialysis today. Computed tomography scan of the neck done to rule out any fracture. Neck muscle sprain. Ice pack. Patient feeling much comfortable later in the day. Total time spent today about 45 minutes with over 25 minutes of discussion.
[2021-09-13 20:03] LABS: Glucose,Whole Blood 103 mg/dL (75-99)
[2021-09-13] MEDS: INSULIN DETEMIR (LEVEMIR) 100 UNIT/ML SYR SQ SCH (21:00)
[2021-09-13] MEDS: ATORVASTATIN 80 MG TAB PO SCH (21:00)
[2021-09-14 06:01] LABS: Glucose,Whole Blood 92 mg/dL (75-99)
[2021-09-14] MEDS: INSULIN ASPART (NovoLOG) 100 UNIT/ML VIAL SQ SCH ×3 (06:06→16:03)
[2021-09-14] MEDS: carvediloL 3.125 MG TAB PO SCH ×2 (06:41→16:03)
[2021-09-14] MEDS: CALCIUM ACETATE 667 MG TAB PO SCH ×3 (06:41→16:03)
[2021-09-14] MEDS: MIDODRINE 5 MG TAB PO SCH ×3 (06:42→16:03)
[2021-09-14 07:47] LABS: Calcium 8.8 mg/dL (8.4-10.2); Potassium 4.4 mmol/L (3.5-5.1)
[2021-09-14] MEDS ORDERED: MIDODRINE 5 MG TAB PO STA (08:54)
--- NOTE | 2021-09-14 09:42 | P.PN ---
Subjective Patient is seen in follow-up for acute kidney injury on chronic kidney disease. Started on hemodialysis September 12. Has a femoral catheter. Oliguric. Had brief SVT runs during dialysis yesterday. Vital signs are stable. Blood pressure on the lower side. General: On nasal cannula. HEENT: Head exam is unremarkable. LUNGS: Breath sounds decreased. HEART: Rate and Rhythm are regular. ABDOMEN: Soft, no distention. EXTREMITITES: 1+ edema. Objective - Vital Signs Vital signs: Vital Signs Temp 98.6 F 09/14/21 04:00 Pulse 87 09/14/21 08:49 Resp 16 09/14/21 08:49 BP 81/52 09/14/21 08:49 Pulse Ox 97 09/14/21 08:49 Intake & Output 09/13/21 09/14/21 09/14/21 18:59 06:59 18:59 Intake Total 420 10 180 Output Total 2105 0 Balance -1685 10 180 Weight 71 kg 66 kg Intake: IV 20 10 Invasive Line 5 20 10 Oral 400 180 Output: Urine 105 0 Hemodialysis 2000 Other: Voiding Method Urinal Urinal # Voids 1 - Labs CBC & Chem 7: 09/06/21 13:00 09/14/21 07:02 Labs: Abnormal Lab Results - Last 24 Hours (Table) 09/13/21 09/13/21 09/14/21 Range/Units 11:40 20:01 07:02 Sodium 134 L (137-145) mmol/L Chloride 96 L (98-107) mmol/L BUN 69 H (9-20) mg/dL Creatinine 3.41 H (0.66-1.25) mg/dL POC Glucose (mg/dL) 149 H 103 H (75-99) mg/dL Assessment and Plan Plan: Assessment: 1. Acute kidney injury secondary to ATN secondary to cardiorenal syndrome. Started on hemodialysis September 12. Has a femoral dialysis catheter. 2. Chronic kidney disease stage IV with baseline creatinine near 2 secondary to solitary right kidney and diabetic kidney disease. 3. Acute on chronic systolic CHF. Status post ICD. 4. Volume overload. Improving with ultrafiltration. 5. Hypervolemic hyponatremia. Better. 6. Diabetes mellitus. 7. Hyperphosphatemia secondary to acute kidney injury. On PhosLo. Plan: Hemodialysis today. Plan to hold tomorrow. Stop Lasix as no urine output. Continue to monitor renal function and urine output. Maintain midodrine. Prognosis guarded.
--- NOTE | 2021-09-14 11:06 | P.PN ---
Progress Note - Text Progress Note Date: 09/14/21 Chief Complaint: Short of breath This is a pleasant 70-year-old patient was chronic stable medical conditions include diabetes, peptic ulcer disease, unilateral right kidney, gout, CAD with a bypass, AICD. Has known underlying ischemic cardiomyopathy. Patient presente d increasing shortness of breath through the previous night. Some chest pressure. Slight perspiration. Minimal cough. No fever no chills. No lower extremity swelling. Presents to the ER. Admitted with acute non-Q-wave MN, acute on chronic congestive heart exacerbation, acute hypoxic respiratory failure. Metabolic acidosis. Hyperkalemia. Treated with BiPAP, IV Lasix, bicarb Kayexalate. 09/05/2021: Sitting up in bed. Short of breath. On nasal cannula. Tired. No chest pain. 09/06/2021: Sitting at the age of the bed. Breathing better. Decreased appetite. Nasal cannula. On IV Lasix. 09/07/2021: Sitting up. Diet. Decrease appetite. Concerned about his overall condition. Some shortness of breath. On IV Lasix. 09/08/2021. Patient is long discussion with Dr. Arroyo from nephrology. Appetite a bit better today. I discussed with Dr. Arroyo. Lasix 40 mg IV daily. Creatinine has bumped up. To be discharged on 40 mg twice a day. Hopefully tomorrow. Increase activity. 09/09/2021: Patient was hypotensive this morning. Systolic blood pressures in the 90s. Creatinine has gone up. Did receive his Lasix this morning. Given 500 mL bolus by nephrology. I have held IV Lasix. Does of Coreg cutback. Discussed with the patient. Also with nephrology. 09/10/2021: Blood pressure bit better this morning. A bit tired. Creatinine up a bit more. Torsemide 40 mg by mouth added daily by nephrology. Discussed with the patient. Follow 09/11/2021: Was seen renal function. Tired. Poor IV access. Midline ordered. Discussed with Dr. Martinez from nephrology. Dobutamine has been ordered by cardiology. Bumex 0.5 mg an hour drip to be started. Care was discussed with the patient and sister the bedside. If things don't improve may need renal replacement therapy. 09/12/2021: Patient did not respond to well to the dobutamine and Bumex drip. Dobutamine discontinued. Hemodialysis catheter placement Dr. Escamilla. For first hemodialysis today. Discussed with Dr. Martinez and with the patient. Tired. Sitting up. 09/13/2021: I protocol from the nurse earlier today that patient has slipped from his bed. Did not hurt himself. Did not hit his head. Later he was com plaining of pain in the neck. Cervical collar was ordered. I ordered a stat computed tomography scan. Computed tomography scan was negative for any fracture. Ice pack was given. Getting the computed tomography scan patient had an episode of temporally passing out past the patient was laid down he came right back around. It was felt to be vasovagal. Patient's family at the bedside including his sister. For hemodialysis this afternoon. Patient has decreased appetite. 09/14/2021: Hemodialysis. On the 1 L being removed. Blood pressures running low. Tired. Barely eating. Prognosis guarded. Follow with cardiology. Decreased urine output Review of systems: Was done for constitutional, cardiovascular, GI, pulmonary. relevant finding as above Active Medications Acetaminophen (Acetaminophen Tab 325 Mg Tab) 650 mg PO Q6HR PRN PRN Reason: Fever and/ or Pain Allopurinol (Allopurinol 100 Mg Tab) 100 mg PO DAILY [facility] Last Admin: 09/13/21 07:59 Dose: 100 mg Documented by: Aspirin (Aspirin 81 Mg) 81 mg PO DAILY [facility] Last Admin: 09/13/21 07:52 Dose: 81 mg Documented by: Atorvastatin Calcium (Atorvastatin 80 Mg Tab) 80 mg PO HS [facility] Last Admin: 09/13/21 21:00 Dose: 80 mg Documented by: Baclofen (Baclofen 10 Mg Tab) 5 mg PO QID PRN PRN Reason: Muscle Spasm Last Admin: 09/13/21 11:02 Dose: 5 mg Documented by: Calcium Acetate (Calcium Acetate 667 Mg Tab) 667 mg PO TID-W/MEALS [facility] Last Admin: 09/14/21 06:41 Dose: 667 mg Documented by: Carvedilol (Carvedilol 3.125 Mg Tab) 3.125 mg PO BID-W/MEALS [facility] Last Admin: 09/14/21 06:41 Dose: 3.125 mg Documented by: Clopidogrel Bisulfate (Clopidogrel 75 Mg Tab) 75 mg PO DAILY [facility] Last Admin: 09/13/21 07:53 Dose: 75 mg Documented by: Insulin Aspart (Insulin Aspart (Novolog) 100 Unit/Ml Vial) 0 unit SQ [facility]; Protocol Last Admin: 09/14/21 06:06 Dose: Not Given Documented by: Insulin Detemir (Insulin Detemir (Levemir) 100 Unit/Ml Syr) 14 unit SQ HS [facility] Last Admin: 09/13/21 21:00 Dose: 14 unit Documented by: Linagliptin (Linagliptin 5 Mg Tablet) 5 mg PO DAILY [facility] Last Admin: 09/13/21 07:53 Dose: 5 mg Documented by: Magnesium Oxide (Magnesium Oxide 400 Mg Tab) 400 mg PO DAILY [facility] Last Admin: 09/13/21 07:52 Dose: 400 mg Documented by: Midodrine (Midodrine 5 Mg Tab) 10 mg PO AC-TID [facility] Last Admin: 09/14/21 06:42 Dose: 10 mg Documented by: Miscellaneous Information (Potassium Replacement Protocol 1 Each Misc) 1 each MISCELLANE DAILY PRN; Protocol PRN Reason: Per Protocol Pantoprazole Sodium (Pantoprazole 40 Mg Tablet) 40 mg PO BID [facility] Last Admin: 09/13/21 20:57 Dose: 40 mg Documented by: Zolpidem Tartrate (Zolpidem 5 Mg Tab) 2.5 mg PO HS PRN PRN Reason: sleep Last Admin: 09/11/21 20:27 Dose: 2.5 mg Documented by: Past medical history to include: Diabetes mellitus type 2, COPD, AICD, peptic ulcer disease, unilateral right kidney, gout, CAD with a bypass Family history: Breast cancer, hypertension Social history: No history of smoking or alcohol. Physical examination: VITAL SIGNS: 98.6, 87, 16, 81/52, 97% on room air GENERAL:Reclining In bed, lethargic, tired. EYES: Pupils equal. Conjunctiva normal. HEENT: External appearance of nose and ears normal, oral cavity grossly normal. NECK: JVD unable to assess; masses not palpable. HEART: First and second heart sounds are normal; decreasing edema LUNGS: Respiratory rate increased, diminished breath sounds ABDOMEN: Soft, nontender, liver spleen not palpable, no masses palpable. PSYCH: [Alert and oriented x3; mood and affect tired INVESTIGATIONS, reviewed in the clinical context: September 14: Potassium 4.4 BUN 69 creatinine 3.41 September 13: Sodium 133 potassium 4.2 BUN 99 creatinine 3.59 September 12: Sodium 132 potassium 4.5 BUN 132 creatinine 4.52 September 11: Sodium 134 potassium 4.4 bicarb 21 BUN 126 creatinine 4.14 September 10: Sodium 133 potassium 4 BUN 114 creatinine 4.15 September 05: Potassium 5 bicarb 17 BUN 65 creatinine 2.17 troponin I 8.8 Renal ultrasound: Right renal cortical cyst. No hydronephrosis. Right kidney is enlarged. Nonobstructing small renal calculus. Left kidney not seen. WBC 11.2 hemoglobin 10.9 platelets 347 sodium 140 potassium 7.5/6.1 BUN 60 creatinine 2.06 Troponin I 0.414, 3.4, 90.9 ProBNP 75287 EKG tracing personally reviewed by me-atrial sensed ventricular paced rhythm. Chest x-ray film personally reviewed by me-pulmonary edema Previous labs: [May 2021]: BUN 53 creatinine 2.5 Assessment and plan: -Acute non-Q wave myocardial infarction Lipitor, Coreg, aspirin. Plavix -Acute on chronic congestive heart failure exacerbation: Not improving Received Demadex 0.5 mg an hour drip-. Dobutamine drip-discontinued. Getting daily hemodialysis started on September 12 -Biventricular AICD -Chronic kidney disease stage IV from diabetic nephropathy and hypertensive nephrosclerosis Follow renal function -Acute kidney injury possibly ATN from cardiorenal syndrome: Not improving Admission creatinine 2.16 Creatinine 4.52. Hemodialysis started in September 12 -Severe hyperkalemia in the setting of CK D.: Better Hold Cozaar. Sodium bicarb. Dextrose. Insulin. Kayexalate. -Unilateral right kidney -Chronic gout Continue allopurinol -Hypotension, cardiac -Acute hypoxic respiratory failure from pulmonary edema: Better Initially BiPAP. 2 L nasal cannula -Acute metabolic acidosis from renal failure.: Improving Bicarbonate drip -CAD with a prior history of coronary bypass Coreg. Plavix. Aspirin. -Peptic ulcer disease PPI. -Diabetes mellitus type 2 on oral hypoglycemic. Uncontrolled with hyperglycemia. Follow Accu-Cheks and sliding scale insulin. Levemir 14 units subcu daily at bedtime. Januvia 50 mg daily. Not eating much. Hemodialysis today. On 2 L of nasal cannula. Tired. Options limited. Prognosis guarded. Follow-up with cardiology and nephrology.
[2021-09-14 11:34] LABS: ABG Base Excess 6.9 mmol/L; ABG HCO3 30 mmol/L (21-25); ABG Oxygen Saturation 96.4 % (94-97); ABG PCO2 35 mmHg (35-45); ABG PH 7.54 (7.35-7.45); ABG PO2 77 mmHg (83-108); ABG TCO2 31 mmol/L (19-24); Allen Test Performed? Yes
[2021-09-14 11:39] LABS: Glucose,Whole Blood 53 mg/dL (75-99)
[2021-09-14] MEDS ORDERED: DEXTROSE 50% SYRINGE 50 ML IVP ONE (11:52)
[2021-09-14 11:54] LABS: Glucose,Whole Blood 75 mg/dL (75-99)
--- NOTE | 2021-09-14 11:55 | PN ---
PROGRESS NOTE Mr. Chow is a 70-year-old male with known history of severe ischemic cardiomyopathy, status post ICD implant, who presented with non-STEMI and had worsening renal failure and renal shutdown. He underwent dialysis. Overall his breathing is better. He denies any chest pain. He denies any dizziness. Hemodynamically he is stable. He is scheduled to undergo dialysis this morning. He denies any nausea or vomiting. He continues to be sleepy. He continues to be at this time on aspirin once a day, Lipitor 80 mg daily, Coreg 3.125 mg twice a day, Plavix 75 mg daily, Lasix 80 mg twice a day, insulin, Tradjenta, midodrine 10 mg three times a day. PHYSICAL EXAMINATION: Blood pressure is running in the 90s with a heart rate in the 90s. LUNGS: Decreased breath sounds. No wheezes. HEART: S1-S2 with a systolic murmur heard at the base, ejection type. No diastolic murmur. No rub. ABDOMEN: Soft, nontender. EXTREMITIES: Plus 1 edema, improved. LAB DATA: BUN and creatinine 69 and 3.41, improved compared to yesterday. His urine output remains poor to none. IMPRESSION: 1. Respiratory failure with congestive heart failure in a patient with known history of severe ischemic cardiomyopathy. 2. Cardiorenal syndrome; patient on dialysis. 3. History of coronary artery bypass grafting. 4. Hyperlipidemia. 5. ICD implantation. 6. Diabetes mellitus. RECOMMENDATIONS: Will continue on the present therapy, continue dialysis. Depending on his progress, further recommendations will be made. Unfortunately because of his low blood pressure there is no room to adjust his regimen. Unfortunately the prognosis remains quite guarded. MMODL / IJN: [id number] /
[2021-09-14 12:01] LABS: Glucose,Whole Blood 191 mg/dL (75-99)
[2021-09-14] MEDS ORDERED: ATROPINE OPHTH SOLN 1% 5ML BTL SUBLINGUAL PRN (12:22)
[2021-09-14] MEDS ORDERED: LORazepam 2 MG/ML INJ IV PRN (12:22)
[2021-09-14 12:35] LABS: Basophils % (A) 0 %; Eosinophils % (A) 0 %; Lymphocytes # (A) 0.3 k/uL (1.0-4.8); Lymphocytes % (A) 3 %; MCH 35.7 pg (25.0-35.0); MCHC 32.8 g/dL (31.0-37.0); MCV 109.1 fL (80.0-100.0); Macrocytosis Marked; Mean Platelet Volume 9.7; Monocytes # (A) 0.4 k/uL (0-1.0); Monocytes % (A) 3 %; Neutrophils # (A) 11.6 k/uL (1.3-7.7); Neutrophils % (A) 94 %; Platelet Count 234 k/uL (150-450); RBC 2.11 m/uL (4.30-5.90); RDW 14.6 % (11.5-15.5); WBC 12.4 k/uL (3.8-10.6)
[2021-09-14 12:38] LABS: HGB 7.5 gm/dL (13.0-17.5)
[2021-09-14] MEDS: LINAGLIPTIN 5 MG TABLET PO SCH (13:00)
[2021-09-14] MEDS: PANTOPRAZOLE 40 MG TABLET PO SCH (13:00)
[2021-09-14] MEDS: ASPIRIN 81 MG PO SCH (13:00)
[2021-09-14] MEDS ORDERED: SCOPOLAMINE 1.5MG/72HR PATCH TRANSDERM SCH (13:00)
[2021-09-14] MEDS: allopurinoL 100 MG TAB PO SCH (13:00)
[2021-09-14] MEDS: MAGNESIUM OXIDE 400 MG TAB PO SCH (13:00)
[2021-09-14] MEDS: FUROSEMIDE 80 MG TAB PO SCH (14:09)
[2021-09-14 16:33] LABS: Glucose,Whole Blood 159 mg/dL (75-99)
[2021-09-14] MEDS: MORPHINE SULFATE 2 MG/ML SYRINGE IV PRN ×2 (16:46→21:10)
[2021-09-14 19:21] VITALS: BP 90/40; PULSE 91; RESP 22; TEMP 99.1
[2021-09-15] MEDS: INSULIN DETEMIR (LEVEMIR) 100 UNIT/ML SYR SQ SCH (00:53)
[2021-09-15] MEDS: ATORVASTATIN 80 MG TAB PO SCH (00:53)
[2021-09-15] MEDS: INSULIN ASPART (NovoLOG) 100 UNIT/ML VIAL SQ SCH (00:53)
[2021-09-15] MEDS: PANTOPRAZOLE 40 MG TABLET PO SCH (00:54)
--- NOTE | 2021-09-15 19:18 | P.DS ---
Providers Date of admission: 09/04/21 12:51 Expected date of discharge: 09/15/21 (Patient ) Attending physician: Jose Bowen Consults: 09/04/21 12:36 Consult Physician Routine Consulting Provider: [facility] Consult Reason/Comments: Acute pulmonary edema Do you want consulting provider notified?: Yes 09/04/21 19:52 Consult Physician Routine Consulting Provider: Ana Arroyo Consult Reason/Comments: elevated potassium Do you want consulting provider notified?: Yes 09/12/21 06:18 Consult Physician Urgent Consulting Provider: Yoel Escamilla Consult Reason/Comments: dialysis catheter placement Do you want consulting provider notified?: Yes Primary care physician: Stated None Hospital Course: Chief Complaint: Short of breath This is a pleasant 70-year-old patient was chronic stable medical conditions include diabetes, peptic ulcer disease, unilateral right kidney, gout, CAD with a bypass, AICD. Has known underlying ischemic cardiomyopathy. Patient presented increasing shortness of breath through the previous night. Some chest pressure. Slight perspiration. Minimal cough. No fever no chills. No lower extremity swelling. Presents to the ER. Admitted with acute non-Q-wave OH, acute on chronic congestive heart exacerbation, acute hypoxic respiratory failure. Metabolic acidosis. Hyperkalemia. Treated with BiPAP, IV Lasix, bicarb Kayexalate. 09/05/2021: Sitting up in bed. Short of breath. On nasal cannula. Tired. No chest pain. 09/06/2021: Sitting at the age of the bed. Breathing better. Decreased appetite. Nasal cannula. On IV Lasix. 09/07/2021: Sitting up. Diet. Decrease appetite. Concerned about his overall condition. Some shortness of breath. On IV Lasix. 09/08/2021. Patient is long discussion with Dr. Arroyo from nephrology. Appetite a bit better today. I discussed with Dr. Arroyo. Lasix 40 mg IV daily. Creatinine has bumped up. To be discharged on 40 mg twice a day. Hopefully tomorrow. Increase activity. 09/09/2021: Patient was hypotensive this morning. Systolic blood pressures in the 90s. Creatinine has gone up. Did receive his Lasix this morning. Given 500 mL bolus by nephrology. I have held IV Lasix. Does of Coreg cutback. Discussed with the patient. Also with nephrology. 09/10/2021: Blood pressure bit better this morning. A bit tired. Creatinine up a bit more. Torsemide 40 mg by mouth added daily by nephrology. Discussed with the patient. Follow 09/11/2021: Was seen renal function. Tired. Poor IV access. Midline ordered. Discussed with Dr. Martinez from nephrology. Dobutamine has been ordered by cardiology. Bumex 0.5 mg an hour drip to be started. Care was discussed with the patient and sister the bedside. If things don't improve may need renal replacement therapy. 09/12/2021: Patient did not respond to well to the dobutamine and Bumex drip. Dobutamine discontinued. Hemodialysis catheter placement Dr. Escamilla. For first hemodialysis today. Discussed with Dr. Martinez and with the patient. Tired. Sitting up. 09/13/2021: I protocol from the nurse earlier today that patient has slipped from his bed. Did not hurt himself. Did not hit his head. Later he was complaining of pain in the neck. Cervical collar was ordered. I ordered a stat computed tomography scan. Computed tomography scan was negative for any fract ure. Ice pack was given. Getting the computed tomography scan patient had an episode of temporally passing out past the patient was laid down he came right back around. It was felt to be vasovagal. Patient's family at the bedside including his sister. For hemodialysis this afternoon. Patient has decreased appetite. 09/14/2021: Hemodialysis. On the 1 L being removed. Blood pressures running low. Tired. Barely eating. Prognosis guarded. Follow with cardiology. Decreased urine output 09/15/2021: Patient continued to deteriorate. I spoke to the patient's sister yesterday evening. Patient was made DO NOT RESUSCITATE. Subsequently made comfort care. Patient today Past medical history to include: Diabetes mellitus type 2, COPD, AICD, peptic ulcer disease, unilateral right kidney, gout, CAD with a bypass Family history: Breast cancer, hypertension Social history: No history of smoking or alcohol. INVESTIGATIONS, reviewed in the clinical context: September 14: Potassium 4.4 BUN 69 creatinine 3.41 September 13: Sodium 133 potassium 4.2 BUN 99 creatinine 3.59 September 12: Sodium 132 potassium 4.5 BUN 132 creatinine 4.52 September 11: Sodium 134 potassium 4.4 bicarb 21 BUN 126 creatinine 4.14 September 10: Sodium 133 potassium 4 BUN 114 creatinine 4.15 September 05: Potassium 5 bicarb 17 BUN 65 creatinine 2.17 troponin I 8.8 Renal ultrasound: Right renal cortical cyst. No hydronephrosis. Right kidney is enlarged. Nonobstructing small renal calculus. Left kidney not seen. WBC 11.2 hemoglobin 10.9 platelets 347 sodium 140 potassium 7.5/6.1 BUN 60 creatinine 2.06 Troponin I 0.414, 3.4, 90.9 ProBNP 71458 EKG tracing personally reviewed by me-atrial sensed ventricular paced rhythm. Chest x-ray film personally reviewed by me-pulmonary edema Previous labs: [May 2021]: BUN 53 creatinine 2.5 Cause of : Coronary artery disease Assessment and plan: -Acute non-Q wave myocardial infarction Lipitor, Coreg, aspirin. Plavix -Acute on chronic congestive heart failure exacerbation: Not improving Received Demadex 0.5 mg an hour drip-. Dobutamine drip-discontinued. Getting daily hemodialysis started on September 12 -Biventricular AICD -Chronic kidney disease stage IV from diabetic nephropathy and hypertensive nephrosclerosis -Acute kidney injury possibly ATN from cardiorenal syndrome: Not improving Admission creatinine 2.16 Creatinine 4.52. Hemodialysis started in September 12 -Severe hyperkalemia in the setting of CK D.: Better Hold Cozaar. Sodium bicarb. Dextrose. Insulin. Kayexalate. -Unilateral right kidney -Chronic gout Continue allopurinol -Hypotension, cardiac -Acute hypoxic respiratory failure from pulmonary edema: Better Initially BiPAP. -Acute metabolic acidosis from renal failure.: Improving Bicarbonate drip -CAD with a prior history of coronary bypass Coreg. Plavix. Aspirin. -Peptic ulcer disease PPI. -Diabetes mellitus type 2 on oral hypoglycemic. Uncontrolled with hyperglycemia. Accu-Cheks and sliding scale insulin. Levemir 14 units subcu daily at bedtime. Januvia 50 mg daily. Disposition: Patient Plan - Discharge Summary Discharge Rx Participant: No New Discharge Prescriptions: No Action Multivit-Min/FA/Lycopen/Lutein [Centrum Silver Men Tablet] 1 tab PO DAILY Omeprazole [PriLOSEC] 20 mg PO BID Carvedilol [Coreg] 12.5 mg PO BID Allopurinol [Zyloprim] 100 mg PO DAILY sitaGLIPtin PHOS/metFORMIN HCL [Janumet 50-1,000 mg Tablet] 1 tab PO BID Ferrous Sulfate [Iron] 325 mg PO MOTUWETH Aspirin [Adult Low Dose Aspirin EC] 81 mg PO DAILY Simvastatin 80 mg PO DAILY Losartan Potassium 100 mg PO DAILY Sucralfate [Carafate] 1 gm PO BID Furosemide [Lasix] 20 mg PO DAILY Clopidogrel [Plavix] 75 mg PO DAILY Discharge Medication List Allopurinol [Zyloprim] 100 mg PO DAILY 06/15/21 [History] Aspirin [Adult Low Dose Aspirin EC] 81 mg PO DAILY 06/15/21 [History] Carvedilol [Coreg] 12.5 mg PO BID 06/15/21 [History] Clopidogrel [Plavix] 75 mg PO DAILY 06/15/21 [History] Ferrous Sulfate [Iron] 325 mg PO MOTUWETH 06/15/21 [History] Furosemide [Lasix] 20 mg PO DAILY 06/15/21 [History] Losartan Potassium 100 mg PO DAILY 06/15/21 [History] Multivit-Min/FA/Lycopen/Lutein [Centrum Silver Men Tablet] 1 tab PO DAILY 06/15/21 [History] Omeprazole [PriLOSEC] 20 mg PO BID 06/15/21 [History] Simvastatin 80 mg PO DAILY 06/15/21 [History] Sucralfate [Carafate] 1 gm PO BID 06/15/21 [History] sitaGLIPtin PHOS/metFORMIN HCL [Janumet 50-1,000 mg Tablet] 1 tab PO BID 06/15/21 [History] Follow up Appointment(s)/Referral(s): Ina Michael MD [STAFF PHYSICIAN] - 1 Week None,Stated [Primary Care Provider] - 1-2 days Discharge Disposition: - Preliminary Cause of Preliminary Cause of : CAD
== END 2021-09-15 06:01 | disposition expired ==
LOC: EC 10:54 → 3SCARD 12:51
PROVIDERS: ADMIT Hospitalist; ATTEND Hospitalist
PROC: 5A09357 Assistance with Respiratory Ventilation, Less than 24 Consecutive Hours, Continuous Positive Airway Pressure (ICD-10-PCS; 2021-09-04)
PROC: 02HV33Z Insertion of Infusion Device into Superior Vena Cava, Percutaneous Approach (ICD-10-PCS; principal; 2021-09-11 15:05)
PROC: 5A1D70Z Performance of Urinary Filtration, Intermittent, Less than 6 Hours Per Day (ICD-10-PCS; 2021-09-12 13:10)
DX: I13.0 Hypertensive heart and chronic kidney disease with heart failure and stage 1 through stage 4 chronic kidney disease, or unspecified chronic kidney disease (principal); I21.4 Non-ST elevation (NSTEMI) myocardial infarction; N17.0 Acute kidney failure with tubular necrosis; I50.23 Acute on chronic systolic (congestive) heart failure; J96.01 Acute respiratory failure with hypoxia; N18.4 Chronic kidney disease, stage 4 (severe); E87.1 Hypo-osmolality and hyponatremia; E87.2 Acidosis; I47.1 Supraventricular tachycardia; Q60.0 Renal agenesis, unilateral; Z51.5 Encounter for palliative care; Z66 Do not resuscitate; E11.22 Type 2 diabetes mellitus with diabetic chronic kidney disease; Z20.822 Contact with and (suspected) exposure to COVID-19; E78.5 Hyperlipidemia, unspecified; E83.42 Hypomagnesemia; E87.5 Hyperkalemia; E83.39 Other disorders of phosphorus metabolism; I08.3 Combined rheumatic disorders of mitral, aortic and tricuspid valves; I25.10 Atherosclerotic heart disease of native coronary artery without angina pectoris; I25.5 Ischemic cardiomyopathy; J44.9 Chronic obstructive pulmonary disease, unspecified; M1A.9XX0 Chronic gout, unspecified, without tophus (tophi); E11.65 Type 2 diabetes mellitus with hyperglycemia; K21.9 Gastro-esophageal reflux disease without esophagitis; I95.9 Hypotension, unspecified; T50.2X5A Adverse effect of carbonic-anhydrase inhibitors, benzothiadiazides and other diuretics, initial encounter; Z95.810 Presence of automatic (implantable) cardiac defibrillator; Z79.82 Long term (current) use of aspirin; Z79.02 Long term (current) use of antithrombotics/antiplatelets; Z79.899 Other long term (current) drug therapy; Z79.84 Long term (current) use of oral hypoglycemic drugs; I25.2 Old myocardial infarction; Z95.1 Presence of aortocoronary bypass graft; Z98.890 Other specified postprocedural states; Z98.42 Cataract extraction status, left eye; Z98.41 Cataract extraction status, right eye; Z88.8 Allergy status to other drugs, medicaments and biological substances; Z87.11 Personal history of peptic ulcer disease; Z80.1 Family history of malignant neoplasm of trachea, bronchus and lung; Z80.3 Family history of malignant neoplasm of breast; Z82.49 Family history of ischemic heart disease and other diseases of the circulatory system
CPT/HCPCS: 36410; 36415; 36556; 36600; 71045; 71046; 72125; 76770; 76937; 77001; 80048; 80051; 80053; 81001; 81003; 82009; 82570; 82805; 83605; 83735; 83880; 84100; 84132; 84300; 84484; 84540; 85025; 85027; 85610; 85730; 86706; 87340; 87635; 90935; 93005; 93306; 94660; 96374; 99291